=== PATIENT | male | born 1940 | race Caucasian/White ===

== ENCOUNTER → 2016-06-05 | Outpatient (CLI) | payer MEDICARE, OTHER ==
--- NOTE | 2016-06-05 11:39 | XR ---
EXAMINATION TYPE: XR shoulder complete RT DATE OF EXAM: 06/05/2016 11:26 AM CLINICAL HISTORY: Pain since recent fall injury. TECHNIQUE: Three views of the right shoulder are obtained. COMPARISON: None. FINDINGS: There is no acute fracture/dislocation evident in the right shoulder. There is mild to mod erate spurring at glenohumeral joint inferiorly. There is well corticated ossific fragmentation from superior aspect of distal clavicle may be product of remote trauma. The visualized ribs are intact a nd unremarkable. IMPRESSION: There is no acute fracture or dislocation in the right shoulder. And other findings as n oted above
== END | disposition home or self-care (01) ==
LOC: RADXRMAIN 11:02
PROVIDERS: ATTEND Family Medicine
DX: M25.511 Pain in right shoulder (principal)

== ENCOUNTER → 2016-08-02 | Outpatient (CLI) | payer MEDICARE, OTHER ==
--- NOTE | 2016-08-02 13:16 | CT ---
EXAMINATION TYPE: CT abdomen pelvis wo con DATE OF EXAM: 08/02/2016 11:31 AM COMPARISON: Prior CT abdomen pelvis July HISTORY: Pain and urinary retention CT DLP: 1172 mGycm Automated exposure control for dose reduction was used. TECHNIQUE: Helical acquisition of images from the lung bases through the pelvis. FINDINGS: LUNG BASES: No significant abnormality is appreciated. AORTA: No significant abnormality is appreciated. LIVER/GB: The liver shows low attenuation likely due to fatty infiltration. There is elevation of rig ht hemidiaphragm, eventration is suspected. Gallbladder is contracted PANCREAS: No significant abnormality is seen. SPLEEN: No significant abnormality is seen. ADRENALS: No significant abnormality is seen. KIDNEYS: Stable, there is a large exophytic cyst with wall calcification involving the left kidney me asuring approximately 11.1 cm in greatest dimension on the left. No hydronephrosis bilaterally. No ev ident ureteral calcification suspect there is a Hutch diverticulum distally at the level of the inser tion of the right ureter. REPRODUCTIVE ORGANS: The prostate is enlarged and shows associated calcification URINARY BLADDER: Urinary bladder shows a thickened wall likely due to chronic outlet obstruction, co rrelate to exclude cystitis. There is impression from the prostate intermargin of the urinary bladder BOWEL: Difficult to exclude abnormal soft tissue at the rectum. There is some wall thickening.. FREE AIR: No Free Air is visible. ASCITES: None visible. Small umbilical hernia contains fat PELVIC ADENOPATHY: None visualized. RETROPERITONEAL ADENOPATHY: No Retroperitoneal Adenopathy visible. OSSEOUS STRUCTURES: Degenerative disc changes are present within the spine, multilevel laminectomy c hange present in the lower lumbar spine. Posterior osteophytes cause anterior mass effect on the thec al sac within the lumbar spine. There is associated spinal stenosis. Postop changes to the left hip c auses some streak artifact. IMPRESSION: NONCONTRAST EXAM MAY LIMIT SENSITIVITY. FATTY INFILTRATION OF THE LIVER, BORDERLINE SIZE OF THE LIVER . LARGE CYST WITHIN THE LEFT KIDNEY IS NOT SIMPLE SHOWS A SIMILAR SIZE TO PRIOR. FINDINGS COMPATIBLE WITH BLADDER OUTLET OBSTRUCTION DESCRIBED, HUTCH DIVERTICULUM ON THE RIGHT, PROSTATE ENLARGEMENT. CONSIDER EVALUATION OF THE SIGMOID COLON IF THIS HAS NOT BEEN PERFORMED.
== END | disposition home or self-care (01) ==
LOC: RADCTMAIN 11:01
PROVIDERS: ATTEND Family Medicine
DX: N28.1 Cyst of kidney, acquired (principal); K76.0 Fatty (change of) liver, not elsewhere classified
CPT/HCPCS: 74176; 80053; 85025

== ENCOUNTER → 2017-09-12 | Outpatient (CLI) | payer MEDICARE, OTHER ==
--- NOTE | 2017-09-12 13:01 | US ---
EXAMINATION TYPE: US venous doppler duplex LE RT DATE OF EXAM: 09/12/2017 12:49 PM COMPARISON: NONE CLINICAL HISTORY: I82.401 DVT RT LEG. Pt states right leg pain, swelling x 6 days/ no known previous DVT SIDE PERFORMED: Right TECHNIQUE: The lower extremity deep venous system is examined utilizing real time linear array sonog parisa with graded compression, doppler sonography and color-flow sonography. VESSELS IMAGED: External Iliac Vein (EIV) Common Femoral Vein Deep Femoral Vein Greater Saphenous Vein * Femoral Vein Popliteal Vein Small Saphenous Vein * Proximal Calf Veins (* superficial vessels) Grayscale, color doppler, spectral doppler imaging performed of the deep veins of the right lower ext remity. There is normal flow, compressibility, vascular waveforms involving common femoral and super ficial femoral veins. Popliteal vein shows absent color flow with noncompressibility there is expansi on with hyperechoic material noted on grayscale images. Right Leg: Positive for DVT within right popliteal vein extending into right calf veins Results called to Dr Montes at time of exam IMPRESSION: Acute occlusive DVT begins in the proximal popliteal vein extending distally into right calf veins in the right lower extremity.
== END | disposition home or self-care (01) ==
LOC: RADUSWWP 12:24
PROVIDERS: ATTEND Family Medicine
DX: I82.431 Acute embolism and thrombosis of right popliteal vein (principal); I82.4Z1 Acute embolism and thrombosis of unspecified deep veins of right distal lower extremity

== ENCOUNTER 2017-10-29 17:27 | Emergency (ER) | payer MEDICARE, OTHER ==
[2017-10-29] MEDS ORDERED: SODIUM CHLORIDE 0.9% 1,000 ML IV STA (17:43)
[2017-10-29] MEDS ORDERED: SODIUM CHLORIDE 0.9% 500 ML IV STA ×2 (17:43→19:44)
[2017-10-29 18:15] LABS: Basophils % (A) 1 %; Eosinophils # (A) 0.1 k/uL (0-0.7); Eosinophils % (A) 2 %; HCT 46.7 % (39.0-53.0); HGB 15.3 gm/dL (13.0-17.5); Lymphocytes # (A) 1.5 k/uL (1.0-4.8); Lymphocytes % (A) 24 %; MCH 30.6 pg (25.0-35.0); MCHC 32.6 g/dL (31.0-37.0); MCV 93.6 fL (80.0-100.0); Mean Platelet Volume 6.9; Monocytes # (A) 0.5 k/uL (0-1.0); Monocytes % (A) 9 %; Neutrophils # (A) 3.7 k/uL (1.3-7.7); Neutrophils % (A) 61 %; Platelet Count 201 k/uL (150-450); RBC 4.99 m/uL (4.30-5.90); RDW 13.5 % (11.5-15.5)
[2017-10-29 18:20] LABS: ALT 41 U/L (21-72); AST 42 U/L (17-59); Albumin 3.9 g/dL (3.5-5.0); Alkaline Phosphatase 52 U/L (38-126); Anion Gap 13 mmol/L; Blood Urea Nitrogen 16 mg/dL (9-20); Calcium 8.8 mg/dL (8.4-10.2); Carbon Dioxide 19 mmol/L (22-30); Chloride 109 mmol/L (98-107); Glucose 108 mg/dL (74-99); Magnesium 2.1 mg/dL (1.6-2.3); Phosphorus 3.5 mg/dL (2.5-4.5); Potassium 4.3 mmol/L (3.5-5.1); Sodium 141 mmol/L (137-145); Total Bilirubin 0.7 mg/dL (0.2-1.3); Total Protein 6.5 g/dL (6.3-8.2)
[2017-10-29 18:23] LABS: INR 1.1 (<1.2); Partial Thromboplastin Time 24.6 sec (22.0-30.0); Prothrombin Time 10.6 sec (9.0-12.0)
--- NOTE | 2017-10-29 18:26 | ED ---
General Adult HPI - General Chief complaint: Weakness Stated complaint: Weakness Time Seen by Provider: 10/29/17 17:30 Source: EMS, RN notes reviewed, old records reviewed Mode of arrival: EMS Limitations: no limitations - History of Present Illness Initial comments: This is a 77-year-old male the ER for various or weakness. Patient does admit to drinking today doing some significant physical activity. He was sitting in his chair trying to get up he was very weak in the legs. Denies any chest pain or shortness or abdominal pain no back pain no injuries. Patient states at this time he feels much improved symptomatically and is able to ambulate - Related Data Home Medications Medication Instructions Recorded Confirmed Atorvastatin [Lipitor] 20 mg PO HS 10/29/17 10/29/17 Lisinopril [Zestril] 2.5 mg PO DAILY 10/29/17 10/29/17 Multivitamins, Thera [Multivitamin 1 tab PO DAILY 10/29/17 10/29/17 (formulary)] metFORMIN HCL [Glucophage] 1,700 mg PO DAILY 10/29/17 10/29/17 Allergies Allergy/AdvReac Type Severity Reaction Status Date / Time No Known Allergies Allergy Verified 10/29/17 17:56 Review of Systems ROS Statement: Those systems with pertinent positive or pertinent negative responses have been documented in the HPI. ROS Other: All systems not noted in ROS Statement are negative. Past Medical History Past Medical History: Hyperlipidemia, Hypertension History of Any Multi-Drug Resistant Organisms: None Reported Past Surgical History: Back Surgery, Orthopedic Surgery Past Psychological History: No Psychological Hx Reported Smoking Status: Former smoker Past Alcohol Use History: Daily Past Drug Use History: None Reported General Exam Limitations: no limitations General appearance: alert, in no apparent distress Head exam: Present: atraumatic, normocephalic, normal inspection Eye exam: Present: normal appearance, PERRL, EOMI. Absent: scleral icterus, conjunctival injection, periorbital swelling ENT exam: Present: normal exam, mucous membranes moist Neck exam: Present: normal inspection. Absent: tenderness, meningismus, lymphadenopathy Respiratory exam: Present: normal lung sounds bilaterally. Absent: respiratory distress, wheezes, rales, rhonchi, stridor Cardiovascular Exam: Present: regular rate, normal rhythm, normal heart sounds. Absent: systolic murmur, diastolic murmur, rubs, gallop, clicks GI/Abdominal exam: Present: soft, normal bowel sounds. Absent: distended, tenderness, guarding, rebound, rigid Extremities exam: Present: normal inspection, full ROM, normal capillary refill. Absent: tenderness, pedal edema, joint swelling, calf tenderness Back exam: Present: normal inspection Neurological exam: Present: alert, oriented X3, CN II-XII intact Psychiatric exam: Present: normal affect, normal mood Skin exam: Present: warm, dry, intact, normal color. Absent: rash Course Vital Signs 10/29/17 10/29/17 10/29/17 17:28 17:55 19:21 Temperature 98.2 F Pulse Rate 75 81 79 Respiratory 18 18 19 Rate Blood Pressure 101/61 141/65 128/75 O2 Sat by Pulse 96 98 95 Oximetry 10/29/17 20:03 Temperature 97.8 F Pulse Rate 75 Respiratory 16 Rate Blood Pressure 122/76 O2 Sat by Pulse 100 Oximetry EKG Findings - EKG Comments: EKG Findings:: EKG shows A. fib rate of 71, QRS 70, QTc 480 Medical Decision Making - Medical Decision Making 77 male presenting with weakness, positive alcohol intoxication. Patient can be discharged home - Lab Data Result diagrams: 10/29/17 17:00 10/29/17 17:00 Lab Results 10/29/17 10/29/17 10/29/17 Range/Units 17:00 17:00 17:00 WBC 6.0 (3.8-10.6) k/uL RBC 4.99 (4.30-5.90) m/uL Hgb 15.3 (13.0-17.5) gm/dL Hct 46.7 (39.0-53.0) % MCV 93.6 (80.0-100.0) fL MCH 30.6 (25.0-35.0) pg MCHC 32.6 (31.0-37.0) g/dL RDW 13.5 (11.5-15.5) % Plt Count 201 (150-450) k/uL Neutrophils % 61 % Lymphocytes % 24 % Monocytes % 9 % Eosinophils % 2 % Basophils % 1 % Neutrophils # 3.7 (1.3-7.7) k/uL Lymphocytes # 1.5 (1.0-4.8) k/uL Monocytes # 0.5 (0-1.0) k/uL Eosinophils # 0.1 (0-0.7) k/uL Basophils # 0.0 (0-0.2) k/uL PT (9.0-12.0) sec INR (<1.2) APTT (22.0-30.0) sec Sodium 141 (137-145) mmol/L Potassium 4.3 (3.5-5.1) mmol/L Chloride 109 H (98-107) mmol/L Carbon Dioxide 19 L (22-30) mmol/L Anion Gap 13 mmol/L BUN 16 (9-20) mg/dL Creatinine 0.85 (0.66-1.25) mg/dL Est GFR (CKD-EPI)AfAm >90 (>60 ml/min/1.73 sqM) Est GFR (CKD-EPI)NonAf 85 (>60 ml/min/1.73 sqM) Glucose 108 H (74-99) mg/dL Calcium 8.8 (8.4-10.2) mg/dL Phosphorus 3.5 (2.5-4.5) mg/dL Magnesium 2.1 (1.6-2.3) mg/dL Total Bilirubin 0.7 (0.2-1.3) mg/dL AST 42 (17-59) U/L ALT 41 (21-72) U/L Alkaline Phosphatase 52 (38-126) U/L Total Creatine Kinase 277 H (55-170) U/L CK-MB (CK-2) 3.5 H* (0.0-2.4) ng/mL CK-MB (CK-2) Rel Index 1.3 Troponin I <0.012 (0.000-0.034) ng/mL Total Protein 6.5 (6.3-8.2) g/dL Albumin 3.9 (3.5-5.0) g/dL Urine Color Urine Appearance (Clear) Urine pH (5.0-8.0) Ur Specific [place] (1.001-1.035) Urine Protein (Negative) Urine Glucose (UA) (Negative) Urine Ketones (Negative) Urine Blood (Negative) Urine Nitrite (Negative) Urine Bilirubin (Negative) Urine Urobilinogen (<2.0) mg/dL Ur Leukocyte Esterase (Negative) Urine RBC (0-5) /hpf Urine WBC (0-5) /hpf Ur Squamous Epith Cells (0-4) /hpf Urine Bacteria (None) /hpf Urine Mucus (None) /hpf Serum Alcohol 198 mg/dL 10/29/17 10/29/17 Range/Units 17:00 19:17 WBC (3.8-10.6) k/uL RBC (4.30-5.90) m/uL Hgb (13.0-17.5) gm/dL Hct (39.0-53.0) % MCV (80.0-100.0) fL MCH (25.0-35.0) pg MCHC (31.0-37.0) g/dL RDW (11.5-15.5) % Plt Count (150-450) k/uL Neutrophils % % Lymphocytes % % Monocytes % % Eosinophils % % Basophils % % Neutrophils # (1.3-7.7) k/uL Lymphocytes # (1.0-4.8) k/uL Monocytes # (0-1.0) k/uL Eosinophils # (0-0.7) k/uL Basophils # (0-0.2) k/uL PT 10.6 (9.0-12.0) sec INR 1.1 (<1.2) APTT 24.6 (22.0-30.0) sec Sodium (137-145) mmol/L Potassium (3.5-5.1) mmol/L Chloride (98-107) mmol/L Carbon Dioxide (22-30) mmol/L Anion Gap mmol/L BUN (9-20) mg/dL Creatinine (0.66-1.25) mg/dL Est GFR (CKD-EPI)AfAm (>60 ml/min/1.73 sqM) Est GFR (CKD-EPI)NonAf (>60 ml/min/1.73 sqM) Glucose (74-99) mg/dL Calcium (8.4-10.2) mg/dL Phosphorus (2.5-4.5) mg/dL Magnesium (1.6-2.3) mg/dL Total Bilirubin (0.2-1.3) mg/dL AST (17-59) U/L ALT (21-72) U/L Alkaline Phosphatase (38-126) U/L Total Creatine Kinase (55-170) U/L CK-MB (CK-2) (0.0-2.4) ng/mL CK-MB (CK-2) Rel Index Troponin I (0.000-0.034) ng/mL Total Protein (6.3-8.2) g/dL Albumin (3.5-5.0) g/dL Urine Color Yellow Urine Appearance Clear (Clear) Urine pH 5.0 (5.0-8.0) Ur Specific [place] 1.008 (1.001-1.035) Urine Protein Negative (Negative) Urine Glucose (UA) Negative (Negative) Urine Ketones Negative (Negative) Urine Blood Negative (Negative) Urine Nitrite Negative (Negative) Urine Bilirubin Negative (Negative) Urine Urobilinogen <2.0 (<2.0) mg/dL Ur Leukocyte Esterase Negative (Negative) Urine RBC <1 (0-5) /hpf Urine WBC <1 (0-5) /hpf Ur Squamous Epith Cells <1 (0-4) /hpf Urine Bacteria Rare H (None) /hpf Urine Mucus Rare H (None) /hpf Serum Alcohol mg/dL Disposition Clinical Impression: Dehydration, Weakness, Alcohol intoxication Disposition: HOME SELF-CARE Condition: Good Instructions: Dehydration (ED), Weakness (ED) Is patient prescribed a controlled substance at d/c from ED?: No Referrals: Robert Montes DO [Primary Care Provider] - 1-2 days
[2017-10-29 18:30] LABS: Creatine Kinase 277 U/L (55-170)
[2017-10-29 18:39] LABS: Alcohol 198 mg/dL
[2017-10-29 18:43] LABS: Troponin I <0.012 ng/mL (0.000-0.034)
[2017-10-29 18:47] LABS: Creatine Kinase MB 3.5 ng/mL (0.0-2.4)
--- NOTE | 2017-10-29 18:53 | XR ---
EXAMINATION TYPE: XR chest 2V DATE OF EXAM: 10/29/2017 COMPARISON: NONE HISTORY: Weakness TECHNIQUE: Frontal and lateral views of the chest are obtained. FINDINGS: There is no focal air space opacity, pleural effusion, or pneumothorax seen. Slight right hemidiaphragm elevation is noted. The cardiac silhouette size is within normal limits. The osseous structures are intact. Multilevel moderate degenerative changes of the thoracic spine are noted. The re is diffuse osseous demineralization. IMPRESSION: No focal consolidation to suggest pneumonia. Mild right hemidiaphragm elevation.
[2017-10-29 19:34] LABS: Bacteria,Urine Rare /hpf; Mucus,Urine Rare /hpf; RBC,Urine <1 /hpf (0-5); Squamous Epithelial Cell,Urine <1 /hpf (0-4); WBC,Urine <1 /hpf (0-5)
[2017-10-29 19:44] LABS: Appearance,Urine Clear (Clear); Bilirubin,Urine Negative (Negative); Blood,Urine Negative (Negative); Color,Urine Yellow; Glucose,Urine (UA) Negative (Negative); Ketones,Urine Negative (Negative); Leukocyte Esterase,Urine Negative (Negative); Nitrite,Urine Negative (Negative); Protein,Urine Negative (Negative); Specific Gravity,Urine 1.008 (1.001-1.035); Urobilinogen,Urine <2.0 mg/dL (<2.0)
[2017-10-29] MEDS ORDERED: MAGNESIUM OXIDE 400 MG TAB PO STA (19:44)
[2017-10-29] MEDS ORDERED: POTASSIUM BICARBONATE/CIT AC 20 MEQ TABLET.EFF PO ONE (19:44)
[2017-10-29 20:04] VITALS: BP 122/76; PULSE 75; RESP 16
[2017-10-29 20:06] VITALS: TEMP 97.8
== END 2017-10-29 20:03 | disposition home or self-care (01) ==
LOC: EC 17:27
DX: E86.0 Dehydration (principal); F10.120 Alcohol abuse with intoxication, uncomplicated; R53.1 Weakness; E78.5 Hyperlipidemia, unspecified; I10 Essential (primary) hypertension; Z87.891 Personal history of nicotine dependence; Z79.84 Long term (current) use of oral hypoglycemic drugs; Z79.899 Other long term (current) drug therapy; Y90.6 Blood alcohol level of 120-199 mg/100 ml
CPT/HCPCS: 36415; 71046; 80053; 80320; 81003; 82550; 82553; 83735; 84100; 84484; 85025; 85610; 85730; 87086; 93005; 99285

== ENCOUNTER 2017-12-19 10:28 | Emergency (ER) | payer MEDICARE, OTHER ==
[2017-12-19] MEDS ORDERED: ALPRAZolam 0.5 MG TAB PO STA ×2 (10:51→23:46)
--- NOTE | 2017-12-19 10:55 | ED ---
Psych HPI - General Chief Complaint: Psychiatric Symptoms Stated Complaint: Mental health Time Seen by Provider: 12/19/17 10:44 Source: patient, RN notes reviewed Mode of arrival: ambulatory Limitations: no limitations - History of Present Illness Initial Comments: 77-year-old male presents emergency Department chief complaint of depression, anxiety. Patient states that he has ongoing depression and anxiety. Patient states has been worsening secondary to impending separation of his . He states that they've been trying to work things out but he states that every morning he wakes up and feels more of a impending doom type feeling. He states that this is been mounting up and states that he sometimes feels suicidal. He states that he's had thoughts of shooting himself or taking pills. He states that he does not want to but is just worried if symptoms keep worsening that he will. Patient states that he is taking antidepressants prescribed by his PCP 1 week ago. Patient denies any homicidal ideation denies any drug or alcohol abuse - Related Data Home Medications Medication Instructions Recorded Confirmed Atorvastatin [Lipitor] 20 mg PO HS 10/29/17 12/19/17 Lisinopril [Zestril] 2.5 mg PO DAILY 10/29/17 12/19/17 Multivitamins, Thera [Multivitamin 1 tab PO DAILY 10/29/17 12/19/17 (formulary)] metFORMIN HCL [Glucophage] 1,700 mg PO DAILY 10/29/17 12/19/17 ALPRAZolam [Xanax] 0.5 mg PO DAILY PRN 12/19/17 12/19/17 Rivaroxaban [Xarelto] 20 mg PO DAILY 12/19/17 12/19/17 Sertraline [Zoloft] 100 mg PO DAILY 12/19/17 12/19/17 Allergies Allergy/AdvReac Type Severity Reaction Status Date / Time No Known Allergies Allergy Verified 12/19/17 11:03 Review of Systems ROS Statement: Those systems with pertinent positive or pertinent negative responses have been documented in the HPI. ROS Other: All systems not noted in ROS Statement are negative. Past Medical History Past Medical History: Deep Vein Thrombosis (DVT), Hyperlipidemia, Hypertension History of Any Multi-Drug Resistant Organisms: None Reported Past Surgical History: Back Surgery, Orthopedic Surgery Past Psychological History: No Psychological Hx Reported Smoking Status: Former smoker Past Alcohol Use History: Abuse, Daily Past Drug Use History: None Reported General Exam Limitations: no limitations General appearance: alert, in no apparent distress, anxious Head exam: Present: atraumatic, normocephalic, normal inspection Eye exam: Present: normal appearance, PERRL, EOMI. Absent: scleral icterus, conjunctival injection, periorbital swelling ENT exam: Present: normal exam, normal oropharynx, mucous membranes moist Neck exam: Present: normal inspection, full ROM. Absent: tenderness, meningismus, lymphadenopathy Respiratory exam: Present: normal lung sounds bilaterally. Absent: respiratory distress, wheezes, rales, rhonchi, stridor Cardiovascular Exam: Present: regular rate, normal rhythm, normal heart sounds. Absent: systolic murmur, diastolic murmur, rubs, gallop, clicks Neurological exam: Present: alert, oriented X3, CN II-XII intact Psychiatric exam: Present: anxious Skin exam: Present: warm, dry, intact, normal color. Absent: rash Course Vital Signs 12/19/17 12/19/17 10:42 17:50 Temperature 97.9 F 98.0 F Pulse Rate 89 77 Respiratory 18 18 Rate Blood Pressure 141/91 137/79 O2 Sat by Pulse 98 98 Oximetry Medical Decision Making - Lab Data Result diagrams: 12/19/17 11:42 12/19/17 11:42 Lab Results 12/19/17 12/19/17 12/19/17 Range/Units 11:42 11:42 11:42 WBC 5.4 (3.8-10.6) k/uL RBC 5.45 (4.30-5.90) m/uL Hgb 17.6 H (13.0-17.5) gm/dL Hct 52.7 (39.0-53.0) % MCV 96.7 (80.0-100.0) fL MCH 32.2 (25.0-35.0) pg MCHC 33.3 (31.0-37.0) g/dL RDW 13.1 (11.5-15.5) % Plt Count 172 (150-450) k/uL Neutrophils % 69 % Lymphocytes % 21 % Monocytes % 7 % Eosinophils % 2 % Basophils % 0 % Neutrophils # 3.7 (1.3-7.7) k/uL Lymphocytes # 1.1 (1.0-4.8) k/uL Monocytes # 0.4 (0-1.0) k/uL Eosinophils # 0.1 (0-0.7) k/uL Basophils # 0.0 (0-0.2) k/uL Sodium 142 (137-145) mmol/L Potassium 4.2 (3.5-5.1) mmol/L Chloride 107 (98-107) mmol/L Carbon Dioxide 24 (22-30) mmol/L Anion Gap 11 mmol/L BUN 15 (9-20) mg/dL Creatinine 0.72 (0.66-1.25) mg/dL Est GFR (CKD-EPI)AfAm >90 (>60 ml/min/1.73 sqM) Est GFR (CKD-EPI)NonAf >90 (>60 ml/min/1.73 sqM) Glucose 118 H (74-99) mg/dL Calcium 9.8 (8.4-10.2) mg/dL Total Bilirubin 1.2 (0.2-1.3) mg/dL AST 47 (17-59) U/L ALT 51 (21-72) U/L Alkaline Phosphatase 69 (38-126) U/L Total Protein 7.5 (6.3-8.2) g/dL Albumin 4.3 (3.5-5.0) g/dL Urine Color Yellow Urine Appearance Cloudy (Clear) Urine pH 5.5 (5.0-8.0) Ur Specific [place] 1.013 (1.001-1.035) Urine Protein Negative (Negative) Urine Glucose (UA) Negative (Negative) Urine Ketones Negative (Negative) Urine Blood Negative (Negative) Urine Nitrite Negative (Negative) Urine Bilirubin Negative (Negative) Urine Urobilinogen <2.0 (<2.0) mg/dL Ur Leukocyte Esterase Negative (Negative) Ur Squamous Epith Cells 1 (0-4) /hpf Urine Mucus Occasional H (None) /hpf Urine Opiates Screen Detected H (NotDetected) Ur Oxycodone Screen Not Detected (NotDetected) Urine Methadone Screen Not Detected (NotDetected) Ur Propoxyphene Screen Not Detected (NotDetected) Ur Barbiturates Screen Not Detected (NotDetected) U Tricyclic Antidepress Not Detected (NotDetected) Ur Phencyclidine Scrn Not Detected (NotDetected) Ur Amphetamines Screen Not Detected (NotDetected) U Methamphetamines Scrn Not Detected (NotDetected) U Benzodiazepines Scrn Detected H (NotDetected) Urine Cocaine Screen Not Detected (NotDetected) U Marijuana (THC) Screen Not Detected (NotDetected) Disposition Clinical Impression: Depression, Suicidal ideation Disposition: TRANSFER TO PSYCH HOSP/UNIT Condition: Stable Referrals: Robert Montes DO [Primary Care Provider] - 1-2 days Time of Disposition: 16:00
[2017-12-19 12:23] LABS: Basophils % (A) 0 %; Eosinophils # (A) 0.1 k/uL (0-0.7); Eosinophils % (A) 2 %; HCT 52.7 % (39.0-53.0); HGB 17.6 gm/dL (13.0-17.5); Lymphocytes # (A) 1.1 k/uL (1.0-4.8); Lymphocytes % (A) 21 %; MCH 32.2 pg (25.0-35.0); MCHC 33.3 g/dL (31.0-37.0); MCV 96.7 fL (80.0-100.0); Mean Platelet Volume 6.8; Monocytes # (A) 0.4 k/uL (0-1.0); Monocytes % (A) 7 %; Neutrophils # (A) 3.7 k/uL (1.3-7.7); Neutrophils % (A) 69 %; Platelet Count 172 k/uL (150-450); RBC 5.45 m/uL (4.30-5.90); RDW 13.1 % (11.5-15.5); WBC 5.4 k/uL (3.8-10.6)
[2017-12-19 12:35] LABS: Appearance,Urine Cloudy (Clear); Bilirubin,Urine Negative (Negative); Blood,Urine Negative (Negative); Color,Urine Yellow; Glucose,Urine (UA) Negative (Negative); Ketones,Urine Negative (Negative); Leukocyte Esterase,Urine Negative (Negative); Mucus,Urine Occasional /hpf; Nitrite,Urine Negative (Negative); PH, Urine 5.5 (5.0-8.0); Protein,Urine Negative (Negative); Specific Gravity,Urine 1.013 (1.001-1.035); Squamous Epithelial Cell,Urine 1 /hpf (0-4); Urobilinogen,Urine <2.0 mg/dL (<2.0)
[2017-12-19 12:37] LABS: Amphetamine Screen,Urine Not Detected (NotDetected); Barbiturate Screen,Urine Not Detected (NotDetected); Benzodiazepines Screen,Urine Detected (NotDetected); Cocaine Screen,Urine Not Detected (NotDetected); Methadone Screen, Urine Not Detected (NotDetected); Opiate Screen,Urine Detected (NotDetected); Oxycodone Screen, Urine Not Detected (NotDetected); Phencyclidine Screen,Urine Not Detected (NotDetected); Tricyclic Antidepressant,Urine Not Detected (NotDetected); Urn Cannabinoid Scrn Not Detected (NotDetected)
[2017-12-19 12:44] LABS: ALT 51 U/L (21-72); AST 47 U/L (17-59); Albumin 4.3 g/dL (3.5-5.0); Alkaline Phosphatase 69 U/L (38-126); Anion Gap 11 mmol/L; Blood Urea Nitrogen 15 mg/dL (9-20); Calcium 9.8 mg/dL (8.4-10.2); Carbon Dioxide 24 mmol/L (22-30); Chloride 107 mmol/L (98-107); Glucose 118 mg/dL (74-99); Potassium 4.2 mmol/L (3.5-5.1); Sodium 142 mmol/L (137-145); Total Bilirubin 1.2 mg/dL (0.2-1.3); Total Protein 7.5 g/dL (6.3-8.2)
[2017-12-19 21:39] VITALS: BP 113/64; PULSE 64; RESP 16; TEMP 97.2
== END 2017-12-20 00:45 ==
LOC: EC 10:28
DX: F32.9 Major depressive disorder, single episode, unspecified (principal); R45.851 Suicidal ideations; F41.9 Anxiety disorder, unspecified; E78.5 Hyperlipidemia, unspecified; I10 Essential (primary) hypertension; Z86.718 Personal history of other venous thrombosis and embolism; Z87.891 Personal history of nicotine dependence; Z79.84 Long term (current) use of oral hypoglycemic drugs; Z79.01 Long term (current) use of anticoagulants; Z79.899 Other long term (current) drug therapy
CPT/HCPCS: 36415; 80053; 80306; 81001; 85025; 99285

== ENCOUNTER 2018-02-19 08:38 | Day surgery (SDC) | payer MEDICARE, OTHER ==
[2018-02-14 17:37] VITALS: BMI 28.7
[~2018-02-19 08:38] MED LIST: LACTATED RINGERS 1,000 ML IV SCH
[2018-02-19 09:02] VITALS: TEMP 97.8
[2018-02-19 09:15] LABS: Glucose,Whole Blood 114 mg/dL (75-99)
[2018-02-19] MEDS ORDERED: PROPOFOL 10 MG/ML 20 ML VIAL IV ONE (09:28)
--- NOTE | 2018-02-19 09:42 | P.GSHP ---
History of Present Illness H&P Date: 02/19/18 Chief Complaint: Right side dull pain, sigmoid colon and rectum thickening This is a 77-year-old male is a complete right-sided abdominal pain. Patient had a CAT scan performed which showed thickening of the sigmoid colon and rectum consistent with possible colitis. Resents today for colonoscopy. Past Medical History Past Medical History: Diabetes Mellitus, Deep Vein Thrombosis (DVT), Hyperlipidemia, Hypertension Additional Past Medical History / Comment(s): DVT 2017, right sided abd. pain History of Any Multi-Drug Resistant Organisms: None Reported Past Surgical History: Back Surgery, Joint Replacement, Orthopedic Surgery Additional Past Surgical History / Comment(s): back surg. x 2, left hip replaced , ruptured achilles tendon repair Past Anesthesia/Blood Transfusion Reactions: No Reported Reaction Smoking Status: Former smoker - Past Family History Mother Family Medical History: No Reported History Medications and Allergies Home Medications Medication Instructions Recorded Confirmed Type Atorvastatin [Lipitor] 20 mg PO HS 10/29/17 02/19/18 History Lisinopril [Zestril] 2.5 mg PO DAILY 10/29/17 02/19/18 History Multivitamins, Thera [Multivitamin 1 tab PO DAILY 10/29/17 02/19/18 History (formulary)] metFORMIN HCL [Glucophage] 850 mg PO DAILY 10/29/17 02/19/18 History ALPRAZolam [Xanax] 0.5 mg PO DAILY PRN 12/19/17 02/19/18 History Rivaroxaban [Xarelto] 20 mg PO DAILY 12/19/17 02/19/18 History Sertraline [Zoloft] 100 mg PO DAILY 12/19/17 02/19/18 History ARIPiprazole [Abilify] 10 mg PO DAILY 02/14/18 02/19/18 History Cholecalciferol [Vitamin D3] 1,000 unit PO DAILY 02/14/18 02/19/18 History Folic Acid 0.4 mg PO DAILY 02/14/18 02/19/18 History Furosemide [Lasix] 20 mg PO DAILY 02/14/18 02/19/18 History Allergies Allergy/AdvReac Type Severity Reaction Status Date / Time No Known Allergies Allergy Verified 02/19/18 08:52 Surgical - Exam Vital Signs Temp Pulse Resp BP Pulse Ox 97.8 F 81 20 139/77 97 02/19/18 09:01 02/19/18 09:01 02/19/18 09:01 02/19/18 09:01 02/19/18 09:01 - General well developed, no distress - Eyes PERRL - ENT normal pinna - Neck no masses - Respiratory normal expansion - Cardiovascular Rhythm: regular - Abdomen Abdomen: soft, non tender Results - Labs Abnormal Lab Results - Last 24 Hours (Table) 02/19/18 Range/Units 09:13 POC Glucose (mg/dL) 114 H (75-99) mg/dL Assessment and Plan Assessment: Abdominal pain Possible colitis We'll perform colonoscopy.
--- NOTE | 2018-02-19 09:53 | P.OP ---
Date of Procedure: 02/19/18 Preoperative Diagnosis: Colitis Postoperative Diagnosis: Normal colon Procedure(s) Performed: Colonoscopy Anesthesia: MAC Surgeon: Jhony Ellis Pathology: none sent Condition: stable Disposition: PACU Description of Procedure: PROCEDURE: The patient was placed on the endoscopy table in the lateral position. Digital rectal examination was performed which revealed no abnormalities. The prostate was symmetrical without nodules. Flexible colonoscope was then placed in the patient's anus and passed throughout the entire colon. The ileocecal valve was visualized. The cecum, ascending, transverse, descending and sigmoid colon were normal. The rectum was normal as well. There were no masses, polyps or diverticula noted in the entire colon. SUMMARY OF FINDINGS: Normal colonoscopy.
[2018-02-19 10:11] VITALS: BP 136/82; PULSE 80; RESP 18
== END 2018-02-19 10:33 | disposition home or self-care (01) ==
LOC: ORWHC2ENDO 08:38
PROVIDERS: ATTEND Surgery
DX: R10.9 Unspecified abdominal pain (principal); K63.89 Other specified diseases of intestine; I10 Essential (primary) hypertension; E78.5 Hyperlipidemia, unspecified; E11.9 Type 2 diabetes mellitus without complications; Z79.84 Long term (current) use of oral hypoglycemic drugs; Z79.899 Other long term (current) drug therapy; Z86.718 Personal history of other venous thrombosis and embolism; Z87.891 Personal history of nicotine dependence; Z79.01 Long term (current) use of anticoagulants
CPT/HCPCS: 45378; J2704

== ENCOUNTER → 2018-03-11 | Outpatient (CLI) | payer MEDICARE, OTHER ==
[2018-03-11 08:37] LABS: Blood Urea Nitrogen 18 mg/dL (9-20)
--- NOTE | 2018-03-11 15:20 | CT ---
EXAMINATION TYPE: CT abdomen pelvis wo/w con DATE OF EXAM: 03/11/2018 COMPARISON: 08/02/2016 INDICATION: Right sided mid pain with hematuria DLP: 2989 mGycm, Automated exposure control for dose reduction was used. CONTRAST: 100 mL of Isovue 300. Study performed with Oral Contrast TECHNIQUE: Axial images were obtained from above the diaphragm to the pubic rami in the axial plane a t 5 mm thick sections. Reconstructed images are reviewed on the computer in the coronal plane. FINDINGS: Limited CT sections are obtained the lung bases. The lung bases are clear. Moderately advanced dylan nary artery calcification is within the [id number]. Small hiatal hernia is present. CT ABDOMEN: Liver: Normal Spleen: Normal Pancreas: Normal Adrenal glands: The adrenal glands are normal. Gallbladder: Normal Kidneys: No masses are evident. No hydronephrosis is present. There is a 10.4 cm cyst along the ant erior inferior pole left kidney measuring 13 Hounsfield units. There is a 0.3 cm calcification poste rior upper pole right kidney. This is nonobstructing. No hydroureter is evident. Aorta: Vascular calcification is within the aorta. Inferior vena cava: Normal. CT PELVIS: Loops of bowel within the abdomen and pelvis are normal. There are loops of bowel which are incom pletely distended or lack oral contrast limiting their evaluation. Appendix: Not visualized. No suspicious tubular structures evident. Urinary bladder: Urinary bladder diverticulum is likely present in the posterior superior right hemip summer. This contains ar 0.4 cm calcification. Genitourinary structures: Prostate is prominent. Osseous structures: No suspicious lytic or sclerotic lesions. IMPRESSIONS: 1. Urinary bladder diverticulum which may contain a calcification. 2. Nonobstructing superior pole right renal stone. No hydronephrosis or hydroureter is present. 3. Large inferior pole left renal cyst.
== END | disposition home or self-care (01) ==
LOC: RADCTMAIN 07:59
PROVIDERS: ATTEND Family Medicine
DX: N20.0 Calculus of kidney (principal); N32.3 Diverticulum of bladder; N28.1 Cyst of kidney, acquired
CPT/HCPCS: 82565; 84520; 74178; 36415; Q9967

== ENCOUNTER → 2019-09-18 | Outpatient (CLI) | payer MEDICARE ==
[2019-09-18 12:10] LABS: African American GFR (CKD) >90 (>60 ml/min/1.73 sqM); Blood Urea Nitrogen 18 mg/dL (9-20); Non-African American GFR(CKD) >90 (>60 ml/min/1.73 sqM)
--- NOTE | 2019-09-18 14:47 | CT ---
EXAMINATION TYPE: CT abdomen wo/w con DATE OF EXAM: 09/18/2019 COMPARISON: 03/11/2018 HISTORY: Kidney mass CT DLP: 2384.8 mGycm CONTRAST: CT scan of the abdomen is performed with Oral Contrast and without and with IV Contrast, patient inje cted with 100 mL of Isovue 300. FINDINGS: LUNG BASES-: No visible nodule. No infiltrate. Small hiatal hernia noted. LIVER/GB: No calcified gallstones. No space occupying hepatic lesion. Biliary tree is of normal ca liber. PANCREAS: No inflammation. No distinct mass. SPLEEN: No splenic enlargement. No lesion seen. ADRENALS: No nodule. No thickening. KIDNEYS/BLADDER: No hydronephrosis. No nephrolithiasis. Large exophytic cyst arising from the lower pole of the left kidney measuring 10.7 x 11.2 cm. Mild mural calcification is noted. No solid renal lesions identified at this time. Extrarenal pelvis right kidney. Urinary bladder grossly unremarkable . BOWEL: Normal bowel caliber. No inflammation. LYMPH NODES: No greater than 1cm abdominal or pelvic lymph nodes are appreciated. AORTA: No significant abnormality. OSSEOUS STRUCTURES: No significant abnormality is seen. OTHER: No significant additional abnormality is seen. IMPRESSION: 1. Large exophytic cyst arising from the lower pole of the left kidney measuring 10.7 x 11.2 cm. Mild mural calcification is noted. No solid renal lesions identified at this time.
== END | disposition home or self-care (01) ==
LOC: RADCTMAIN 11:24
PROVIDERS: ATTEND Family Medicine
DX: N28.1 Cyst of kidney, acquired (principal)
CPT/HCPCS: 82565; 84520; 74170; 36415; Q9967

== ENCOUNTER 2019-10-06 13:21 | Emergency (ER) | payer MEDICARE ==
[2019-10-06 13:34] VITALS: RESP 16
[2019-10-06] MEDS ORDERED: ONDANSETRON 4 MG/2 ML VIAL IVP STA (14:16)
[2019-10-06] MEDS ORDERED: MORPHINE SULFATE 4 MG/ML SYRINGE IV STA (14:16)
[2019-10-06] MEDS ORDERED: SODIUM CHLORIDE 0.9% 500 ML 500 ML IV STA (14:16)
--- NOTE | 2019-10-06 14:32 | ED ---
General Adult HPI - General Chief complaint: Abdominal Pain Stated complaint: Abd Pain Time Seen by Provider: 10/06/19 14:00 Source: patient, RN notes reviewed, old records reviewed Mode of arrival: wheelchair Limitations: no limitations - History of Present Illness Initial comments: 79-year-old male patient passed history of type 2 diabetes, prior DVT on xaralto presented to ED for chief complaint of right lower quadrant pain. Patient reports that pain began suddenly approximate 4 hours ago. Describes as a sharp pain. States it radiates to his right flank. Reports nausea without emesis. Denies any other complaints. Systemic: Pt denies fatigue, fever/chills, rash. Pt denies weakness, night sweats, weight loss. Neuro: Pt denies headache, visual disturbances, syncope or pre-syncope. HEENT: Pt denies ocular discharge or irritation, otalgia, rhinorrhea, pharyngitis or notable lymphadenopathy. Cardiopulmonary: Pt denies chest pain, SOB, heart palpitations, dyspnea on exertion. Abdominal/GI: Pt denies v/d. : Pt denies dysuria, burning w/ urination, frequency/urgency. Denies new onset urinary or bowel incontinence. MSK: Pt denies myalgia, loss of strength or function in extremities. Neuro: Pt denies new onset weakness, paresthesias. - Related Data Home Medications Medication Instructions Recorded Confirmed Atorvastatin [Lipitor] 20 mg PO Q48H 10/29/17 10/06/19 Lisinopril [Zestril] 2.5 mg PO DAILY 10/29/17 10/06/19 metFORMIN HCL [Glucophage] 850 mg PO DAILY 10/29/17 10/06/19 Cholecalciferol [Vitamin D3] 1,000 unit PO DAILY 02/14/18 10/06/19 Folic Acid 0.4 mg PO DAILY 02/14/18 10/06/19 Aspirin EC [Ecotrin Low Dose] 81 mg PO DAILY 10/06/19 10/06/19 Multivit-Min/FA/Lycopen/Lutein 1 tab PO DAILY 10/06/19 10/06/19 [Centrum Silver Men Tablet] Tamsulosin HCl [Flomax] 0.4 mg PO DAILY 10/06/19 10/06/19 Previous Rx's Medication Instructions Recorded Tamsulosin [Flomax] 0.4 mg PO DAILY #10 cap 10/06/19 Allergies Allergy/AdvReac Type Severity Reaction Status Date / Time No Known Allergies Allergy Verified 10/06/19 14:47 Review of Systems ROS Statement: Those systems with pertinent positive or pertinent negative responses have been documented in the HPI. ROS Other: All systems not noted in ROS Statement are negative. Past Medical History Past Medical History: Diabetes Mellitus, Deep Vein Thrombosis (DVT), Hyperlipidemia, Hypertension Additional Past Medical History / Comment(s): DVT 2017, right sided abd. pain History of Any Multi-Drug Resistant Organisms: None Reported Past Surgical History: Back Surgery, Joint Replacement, Orthopedic Surgery Additional Past Surgical History / Comment(s): back surg. x 2, left hip replaced, ruptured achilles tendon repair Past Anesthesia/Blood Transfusion Reactions: No Reported Reaction Past Psychological History: No Psychological Hx Reported Smoking Status: Former smoker Past Alcohol Use History: None Reported Past Drug Use History: None Reported - Past Family History Mother Family Medical History: No Reported History General Exam - General Exam Comments Initial Comments: Constitutional: NAD, AOX3, Pt has pleasant affect. HEENT: NC/AT, trachea midline, neck supple, no lymphadenopathy. External ears appear normal, without discharge. Mucous membranes moist. EOM intact. There is no scleral icterus. No pallor noted. Cardiopulmonary: RRR, no murmurs, rubs or gallops, no JVD noted. Lungs CTAB in anterior and posterior smith. No peripheral edema. Abdominal exam: Abdomen soft and non-distended. Abdomen mildly tender to palpation in right lower quadrant. No guarding or rigidity no ecchymoses. No hepatosplenomegaly. Neuro: CN II-XII grossly intact. No nuchal rigidity. No raccon eyes, no lubin sign. MSK: Full active ROM in upper and lower extremities. Limitations: no limitations Course Vital Signs 10/06/19 10/06/19 13:32 16:33 Temperature 98.2 F 98.6 F Pulse Rate 69 71 Respiratory 16 16 Rate Blood Pressure 184/93 156/92 O2 Sat by Pulse 98 98 Oximetry Medical Decision Making - Medical Decision Making 79-year-old male patient passed history of type 2 diabetes, prior DVT on xaralto presented to ED for chief complaint of right lower quadrant pain. Patient reports that pain began suddenly approximate 4 hours ago. Describes as a sharp pain. States it radiates to his right flank. Reports nausea without emesis. Denies any other complaints. Patient vital signs are stable, afebrile. Physic al exam displayed mild right lower quadrant tenderness. Laboratory investigations did display a mildly elevated lactic acid. Patient was administered a fluid bolus. UA displayed hematuria. CT abdomen and pelvis with contrast displayed suspected right side distal. She'll calculi mild hydroureter. 5.1 cm posterior bilateral diverticulum paining and 9 mm tympanic calculus. 4 mm calculus in the bladder. Prostate no megaly. Large cyst anterior left kidney. Hepatic states illnesses coronary artery disease with patient hernia possible moderate to severe atherosclerotic stenosis of the raymundo c axis and SMA origins. Patient was previously aware of large cyst which is being followed by PCP. Patient's symptoms are well controlled. Patient was discharged will follow up with urology tomorrow for which she has previously established. Will follow up with primary care provider tomorrow as well and will be given cascular surgery referral. Case discussed with Dr. Treadwell. - Lab Data Result diagrams: 10/06/19 14:26 10/06/19 14:26 Lab Results 10/06/19 10/06/19 10/06/19 Range/Units 14:26 14:26 14:26 WBC 5.9 (3.8-10.6) k/uL RBC 5.18 (4.30-5.90) m/uL Hgb 17.2 (13.0-17.5) gm/dL Hct 50.4 (39.0-53.0) % MCV 97.3 (80.0-100.0) fL MCH 33.3 (25.0-35.0) pg MCHC 34.2 (31.0-37.0) g/dL RDW 12.3 (11.5-15.5) % Plt Count 172 (150-450) k/uL Neutrophils % 70 % Lymphocytes % 19 % Monocytes % 7 % Eosinophils % 1 % Basophils % 1 % Neutrophils # 4.1 (1.3-7.7) k/uL Lymphocytes # 1.1 (1.0-4.8) k/uL Monocytes # 0.4 (0-1.0) k/uL Eosinophils # 0.1 (0-0.7) k/uL Basophils # 0.0 (0-0.2) k/uL Sodium 139 (137-145) mmol/L Potassium 4.1 (3.5-5.1) mmol/L Chloride 108 H (98-107) mmol/L Carbon Dioxide 19 L (22-30) mmol/L Anion Gap 12 mmol/L BUN 18 (9-20) mg/dL Creatinine 0.83 (0.66-1.25) mg/dL Est GFR (CKD-EPI)AfAm >90 (>60 ml/min/1.73 sqM) Est GFR (CKD-EPI)NonAf 85 (>60 ml/min/1.73 sqM) Glucose 135 H (74-99) mg/dL Plasma Lactic Acid Naveen (0.7-2.0) mmol/L Calcium 10.0 (8.4-10.2) mg/dL Total Bilirubin 1.3 (0.2-1.3) mg/dL AST 35 (17-59) U/L ALT 24 (4-49) U/L Alkaline Phosphatase 78 (38-126) U/L Total Protein 7.7 (6.3-8.2) g/dL Albumin 4.5 (3.5-5.0) g/dL Lipase 147 (23-300) U/L Urine Color Yellow Urine Appearance Cloudy (Clear) Urine pH 5.5 (5.0-8.0) Ur Specific [place] 1.022 (1.001-1.035) Urine Protein Trace H (Negative) Urine Glucose (UA) Negative (Negative) Urine Ketones 1+ H (Negative) Urine Blood Large H (Negative) Urine Nitrite Negative (Negative) Urine Bilirubin Negative (Negative) Urine Urobilinogen <2.0 (<2.0) mg/dL Ur Leukocyte Esterase Trace H (Negative) Urine RBC >182 H (0-5) /hpf Urine WBC 7 H (0-5) /hpf Ur Squamous Epith Cells <1 (0-4) /hpf Hyaline Casts 1 (0-2) /lpf Urine Mucus Few H (None) /hpf 10/06/19 Range/Units 14:26 WBC (3.8-10.6) k/uL RBC (4.30-5.90) m/uL Hgb (13.0-17.5) gm/dL Hct (39.0-53.0) % MCV (80.0-100.0) fL MCH (25.0-35.0) pg MCHC (31.0-37.0) g/dL RDW (11.5-15.5) % Plt Count (150-450) k/uL Neutrophils % % Lymphocytes % % Monocytes % % Eosinophils % % Basophils % % Neutrophils # (1.3-7.7) k/uL Lymphocytes # (1.0-4.8) k/uL Monocytes # (0-1.0) k/uL Eosinophils # (0-0.7) k/uL Basophils # (0-0.2) k/uL Sodium (137-145) mmol/L Potassium (3.5-5.1) mmol/L Chloride (98-107) mmol/L Carbon Dioxide (22-30) mmol/L Anion Gap mmol/L BUN (9-20) mg/dL Creatinine (0.66-1.25) mg/dL Est GFR (CKD-EPI)AfAm (>60 ml/min/1.73 sqM) Est GFR (CKD-EPI)NonAf (>60 ml/min/1.73 sqM) Glucose (74-99) mg/dL Plasma Lactic Acid Naveen 3.1 H* (0.7-2.0) mmol/L Calcium (8.4-10.2) mg/dL Total Bilirubin (0.2-1.3) mg/dL AST (17-59) U/L ALT (4-49) U/L Alkaline Phosphatase (38-126) U/L Total Protein (6.3-8.2) g/dL Albumin (3.5-5.0) g/dL Lipase (23-300) U/L Urine Color Urine Appearance (Clear) Urine pH (5.0-8.0) Ur Specific [place] (1.001-1.035) Urine Protein (Negative) Urine Glucose (UA) (Negative) Urine Ketones (Negative) Urine Blood (Negative) Urine Nitrite (Negative) Urine Bilirubin (Negative) Urine Urobilinogen (<2.0) mg/dL Ur Leukocyte Esterase (Negative) Urine RBC (0-5) /hpf Urine WBC (0-5) /hpf Ur Squamous Epith Cells (0-4) /hpf Hyaline Casts (0-2) /lpf Urine Mucus (None) /hpf Disposition Clinical Impression: Ureteral calculi Disposition: HOME SELF-CARE Condition: Stable Instructions (If sedation given, give patient instructions): Kidney Stones (ED) Additional Instructions: Take medication as directed. Follow-up with urologist and PCP tomorrow. Return to ER if condition worsens. Prescriptions: Tamsulosin [Flomax] 0.4 mg PO DAILY #10 cap Is patient prescribed a controlled substance at d/c from ED?: No Referrals: Robert Montes DO [Primary Care Provider] - 1-2 days Kristian Galindo MD [STAFF PHYSICIAN] - 1-2 days
[2019-10-06 15:00] LABS: Basophils % (A) 1 %; Eosinophils # (A) 0.1 k/uL (0-0.7); Eosinophils % (A) 1 %; HCT 50.4 % (39.0-53.0); HGB 17.2 gm/dL (13.0-17.5); Lymphocytes # (A) 1.1 k/uL (1.0-4.8); Lymphocytes % (A) 19 %; MCH 33.3 pg (25.0-35.0); MCHC 34.2 g/dL (31.0-37.0); MCV 97.3 fL (80.0-100.0); Mean Platelet Volume 8.2; Monocytes # (A) 0.4 k/uL (0-1.0); Monocytes % (A) 7 %; Neutrophils # (A) 4.1 k/uL (1.3-7.7); Neutrophils % (A) 70 %; Platelet Count 172 k/uL (150-450); RBC 5.18 m/uL (4.30-5.90); RDW 12.3 % (11.5-15.5); WBC 5.9 k/uL (3.8-10.6)
[2019-10-06 15:12] LABS: ALT 24 U/L (4-49); AST 35 U/L (17-59); African American GFR (CKD) >90 (>60 ml/min/1.73 sqM); Albumin 4.5 g/dL (3.5-5.0); Alkaline Phosphatase 78 U/L (38-126); Anion Gap 12 mmol/L; Appearance,Urine Cloudy (Clear); Bilirubin,Urine Negative (Negative); Blood Urea Nitrogen 18 mg/dL (9-20); Blood,Urine Large (Negative); Carbon Dioxide 19 mmol/L (22-30); Chloride 108 mmol/L (98-107); Color,Urine Yellow; Glucose 135 mg/dL (74-99); Glucose,Urine (UA) Negative (Negative); Hyaline Casts,Urine 1 /lpf (0-2); Ketones,Urine 1+ (Negative); Leukocyte Esterase,Urine Trace (Negative); Mucus,Urine Few /hpf; Nitrite,Urine Negative (Negative); Non-African American GFR(CKD) 85 (>60 ml/min/1.73 sqM); PH, Urine 5.5 (5.0-8.0); Potassium 4.1 mmol/L (3.5-5.1); Protein,Urine Trace (Negative); RBC,Urine >182 /hpf (0-5); Sodium 139 mmol/L (137-145); Specific Gravity,Urine 1.022 (1.001-1.035); Squamous Epithelial Cell,Urine <1 /hpf (0-4); Total Bilirubin 1.3 mg/dL (0.2-1.3); Total Protein 7.7 g/dL (6.3-8.2); Urobilinogen,Urine <2.0 mg/dL (<2.0); WBC,Urine 7 /hpf (0-5)
[2019-10-06] MEDS ORDERED: SODIUM CHLORIDE 0.9% 500 ML 500 ML IV ONE (15:58)
--- NOTE | 2019-10-06 15:58 | CT ---
EXAMINATION TYPE: CT abdomen pelvis w con DATE OF EXAM: 10/06/2019 COMPARISON: 09/18/2019 HISTORY: 79-year-old male RLQ pain, suspected appendicitis TECHNIQUE: Contiguous axial scanning of the abdomen and pelvis following administration of 100 ml Iso deya 300 IV contrast. Delayed images through the kidneys and coronal/sagittal reconstructions perform ed. CT DLP: 1900.9 mGycm Automated exposure control for dose reduction was used. FINDINGS: Heart normal size without pericardial effusion. Three-vessel coronary artery calcifications are prese nt. Small hiatal hernia. Mild dependent atelectasis. No pleural effusion. Low-attenuation of the liver parenchyma; suspect fatty infiltration on this late arterial phase exam. Portal venous system is patent. No biliary ductal dilatation. Gallbladder, adrenal glands, spleen, and pancreas appear within normal limits. Mild right-sided pelvocaliectasis similar to recent prior. Mild ureteral prominence. Unable to exclud e a 6 mm distal right ureteral calculus. There is also a right posterior bladder wall diverticulum measuring 5.1 x 2.9 cm containing a depende nt 9 mm calculus. Additional 4 mm calculus dependent within the main part of the bladder. Prostate gl and enlargement at 6.3 cm wide. Left kidney shows a very large anterior cyst measuring up to 11.6 x 11.1 cm. Possible moderate or severe atherosclerotic narrowing at the celiac axis and SMA origins. No dilated small bowel, free fluid, or free air. No significant stool burden. No pericolonic inflammatory change. Very small caliber normal appendix i s seen. No mesenteric or retroperitoneal lymphadenopathy. Scattered nonenlarged mesenteric lymph nodes are pr esent. Bladder is urine distended. No abnormal fluid collection in the pelvis or pelvic lymphadenopathy seen . Bones: Left hip total arthroplasty. Moderate degenerative change right hip. Degenerative changes with some bridging ankylosis of the SI joints. Moderate to severe spondylotic changes throughout the lumb ar spine. Prior L3-L4 laminectomies. IMPRESSION: 1. MILD RIGHT-SIDED PELVICALIECTASIS AND MILD RIGHT-SIDED HYDROURETER. SUSPECT A 6 MM DISTAL RIGHT UR ETERAL CALCULUS CAUSING A MILD OBSTRUCTIVE UROPATHY. 2. A 5.1 CM RIGHT POSTERIOR BLADDER WALL DIVERTICULUM CONTAINING A 9 MM DEPENDENT CALCULUS. ADDITIONA L 4 MM CALCULUS IN THE MAIN PART OF THE BLADDER. PROSTATOMEGALY AT 6.3 CM WIDE. CORRELATE FOR BPH AND CHRONIC BLADDER OUTLET OBSTRUCTION. 3. LARGE 11.6 CM CYST ANTERIOR LEFT KIDNEY. CORRELATE FOR ANY POTENTIAL SYMPTOMS FROM LARGE SIZE. 4. HEPATIC STEATOSIS, CAD, SMALL HIATAL HERNIA, AND POSSIBLE MODERATE TO SEVERE ATHEROSCLEROTIC STENO SES AT THE CELIAC AXIS AND SMA ORIGINS. CLINICALLY CORRELATE.
[2019-10-06 16:33] VITALS: BP 156/92; PULSE 71; TEMP 98.6
[2019-10-06] MEDS ORDERED: ACET/COD 300 MG/30 MG STARTER PACK 6 TAB BTL PO STA (16:41)
--- NOTE | 2019-10-06 16:49 | ED ---
Medical Decision Making - Lab Data Result diagrams: 10/06/19 14:26 10/06/19 14:26 Lab Results 10/06/19 10/06/19 10/06/19 Range/Units 14:26 14:26 14:26 WBC 5.9 (3.8-10.6) k/uL RBC 5.18 (4.30-5.90) m/uL Hgb 17.2 (13.0-17.5) gm/dL Hct 50.4 (39.0-53.0) % MCV 97.3 (80.0-100.0) fL MCH 33.3 (25.0-35.0) pg MCHC 34.2 (31.0-37.0) g/dL RDW 12.3 (11.5-15.5) % Plt Count 172 (150-450) k/uL Neutrophils % 70 % Lymphocytes % 19 % Monocytes % 7 % Eosinophils % 1 % Basophils % 1 % Neutrophils # 4.1 (1.3-7.7) k/uL Lymphocytes # 1.1 (1.0-4.8) k/uL Monocytes # 0.4 (0-1.0) k/uL Eosinophils # 0.1 (0-0.7) k/uL Basophils # 0.0 (0-0.2) k/uL Sodium 139 (137-145) mmol/L Potassium 4.1 (3.5-5.1) mmol/L Chloride 108 H (98-107) mmol/L Carbon Dioxide 19 L (22-30) mmol/L Anion Gap 12 mmol/L BUN 18 (9-20) mg/dL Creatinine 0.83 (0.66-1.25) mg/dL Est GFR (CKD-EPI)AfAm >90 (>60 ml/min/1.73 sqM) Est GFR (CKD-EPI)NonAf 85 (>60 ml/min/1.73 sqM) Glucose 135 H (74-99) mg/dL Plasma Lactic Acid Naveen (0.7-2.0) mmol/L Calcium 10.0 (8.4-10.2) mg/dL Total Bilirubin 1.3 (0.2-1.3) mg/dL AST 35 (17-59) U/L ALT 24 (4-49) U/L Alkaline Phosphatase 78 (38-126) U/L Total Protein 7.7 (6.3-8.2) g/dL Albumin 4.5 (3.5-5.0) g/dL Lipase 147 (23-300) U/L Urine Color Yellow Urine Appearance Cloudy (Clear) Urine pH 5.5 (5.0-8.0) Ur Specific [place] 1.022 (1.001-1.035) Urine Protein Trace H (Negative) Urine Glucose (UA) Negative (Negative) Urine Ketones 1+ H (Negative) Urine Blood Large H (Negative) Urine Nitrite Negative (Negative) Urine Bilirubin Negative (Negative) Urine Urobilinogen <2.0 (<2.0) mg/dL Ur Leukocyte Esterase Trace H (Negative) Urine RBC >182 H (0-5) /hpf Urine WBC 7 H (0-5) /hpf Ur Squamous Epith Cells <1 (0-4) /hpf Hyaline Casts 1 (0-2) /lpf Urine Mucus Few H (None) /hpf 10/06/19 Range/Units 14:26 WBC (3.8-10.6) k/uL RBC (4.30-5.90) m/uL Hgb (13.0-17.5) gm/dL Hct (39.0-53.0) % MCV (80.0-100.0) fL MCH (25.0-35.0) pg MCHC (31.0-37.0) g/dL RDW (11.5-15.5) % Plt Count (150-450) k/uL Neutrophils % % Lymphocytes % % Monocytes % % Eosinophils % % Basophils % % Neutrophils # (1.3-7.7) k/uL Lymphocytes # (1.0-4.8) k/uL Monocytes # (0-1.0) k/uL Eosinophils # (0-0.7) k/uL Basophils # (0-0.2) k/uL Sodium (137-145) mmol/L Potassium (3.5-5.1) mmol/L Chloride (98-107) mmol/L Carbon Dioxide (22-30) mmol/L Anion Gap mmol/L BUN (9-20) mg/dL Creatinine (0.66-1.25) mg/dL Est GFR (CKD-EPI)AfAm (>60 ml/min/1.73 sqM) Est GFR (CKD-EPI)NonAf (>60 ml/min/1.73 sqM) Glucose (74-99) mg/dL Plasma Lactic Acid Naveen 3.1 H* (0.7-2.0) mmol/L Calcium (8.4-10.2) mg/dL Total Bilirubin (0.2-1.3) mg/dL AST (17-59) U/L ALT (4-49) U/L Alkaline Phosphatase (38-126) U/L Total Protein (6.3-8.2) g/dL Albumin (3.5-5.0) g/dL Lipase (23-300) U/L Urine Color Urine Appearance (Clear) Urine pH (5.0-8.0) Ur Specific [place] (1.001-1.035) Urine Protein (Negative) Urine Glucose (UA) (Negative) Urine Ketones (Negative) Urine Blood (Negative) Urine Nitrite (Negative) Urine Bilirubin (Negative) Urine Urobilinogen (<2.0) mg/dL Ur Leukocyte Esterase (Negative) Urine RBC (0-5) /hpf Urine WBC (0-5) /hpf Ur Squamous Epith Cells (0-4) /hpf Hyaline Casts (0-2) /lpf Urine Mucus (None) /hpf Disposition Clinical Impression: Ureteral calculi Disposition: HOME SELF-CARE Condition: Stable Instructions (If sedation given, give patient instructions): Kidney Stones (ED) Additional Instructions: Take medication as directed. Take flomax once per day. May use tylenol #3 every 8 hours as needed for pain. Follow-up with urologist and PCP tomorrow. Follow up with vascular surgery. Return to ER if condition worsens. Prescriptions: Tamsulosin [Flomax] 0.4 mg PO DAILY #10 cap Is patient prescribed a controlled substance at d/c from ED?: No Referrals: Kristian Galindo MD [STAFF PHYSICIAN] - 1-2 days Robert Montes DO [Primary Care Provider] - 1-2 days Simon Brooks DO [Doctor of Osteopathic Medicine] - 1-2 days
== END 2019-10-06 17:15 | disposition home or self-care (01) ==
LOC: EC 13:21
DX: N20.1 Calculus of ureter (principal); N28.1 Cyst of kidney, acquired; I25.10 Atherosclerotic heart disease of native coronary artery without angina pectoris; K57.90 Diverticulosis of intestine, part unspecified, without perforation or abscess without bleeding; E78.5 Hyperlipidemia, unspecified; E11.9 Type 2 diabetes mellitus without complications; I10 Essential (primary) hypertension; Z79.4 Long term (current) use of insulin; Z79.82 Long term (current) use of aspirin; Z79.899 Other long term (current) drug therapy; Z87.891 Personal history of nicotine dependence; Z86.718 Personal history of other venous thrombosis and embolism; Z96.642 Presence of left artificial hip joint
CPT/HCPCS: 99285; 96374; 96375; 96361 ×2; 36415; 80053; 83605; 83690; 85025; 81001; 74177; J2270; J2405; Q9967

== ENCOUNTER → 2019-10-15 | Outpatient (CLI) | payer MEDICARE | END | disposition home or self-care (01) | LOC: LABPAT 09:22 | PROVIDERS: ATTEND Urology | DX: Z01.818 Encounter for other preprocedural examination (principal); N21.0 Calculus in bladder; R53.83 Other fatigue | CPT/HCPCS: 93005 ==

== ENCOUNTER 2019-10-22 11:17 | Day surgery (SDC) | payer MEDICARE ==
--- NOTE | 2019-10-18 21:37 | P.GSHP ---
History of Present Illness H&P Date: 10/18/19 Chief Complaint: Right lower abdominal pain The patient is a 79-year-old white male with no prior history of urolithiasis. He has recently experienced right lower quadrant abdominal pain. A computed tomography scan of the abdomen and pelvis shows a large left renal cyst, mild right hydronephrosis with a possible 6 mm right distal ureteral calculus, and 2 bladder calculi (4 and 9 mm) within a right bladder wall diverticulum. - Constitutional Constitutional: Denies chills, Denies fever - Gastrointestinal Gastrointestinal: Denies nausea, Denies vomiting - Genitourinary (Female) Genitourinary: Denies hematuria Past Medical History Past Medical History: Diabetes Mellitus, Deep Vein Thrombosis (DVT), Hyperlipidemia, Hypertension Additional Past Medical History / Comment(s): DVT 2017, right sided abd. pain History of Any Multi-Drug Resistant Organisms: None Reported Past Surgical History: Back Surgery, Joint Replacement, Orthopedic Surgery Additional Past Surgical History / Comment(s): back surg. x 2, left hip replaced, ruptured achilles tendon repair Past Anesthesia/Blood Transfusion Reactions: No Reported Reaction Past Psychological History: No Psychological Hx Reported Past Alcohol Use History: None Reported Past Drug Use History: None Reported - Past Family History Mother Family Medical History: No Reported History Medications and Allergies Home Medications Medication Instructions Recorded Confirmed Type Atorvastatin [Lipitor] 20 mg PO Q48H 10/29/17 10/06/19 History Lisinopril [Zestril] 2.5 mg PO DAILY 10/29/17 10/06/19 History metFORMIN HCL [Glucophage] 850 mg PO DAILY 10/29/17 10/06/19 History Cholecalciferol [Vitamin D3] 1,000 unit PO DAILY 02/14/18 10/06/19 History Folic Acid 0.4 mg PO DAILY 02/14/18 10/06/19 History Aspirin EC [Ecotrin Low Dose] 81 mg PO DAILY 10/06/19 10/06/19 History Multivit-Min/FA/Lycopen/Lutein 1 tab PO DAILY 10/06/19 10/06/19 History [Centrum Silver Men Tablet] Tamsulosin HCl [Flomax] 0.4 mg PO DAILY 10/06/19 10/06/19 History Tamsulosin [Flomax] 0.4 mg PO DAILY #10 cap 10/06/19 Rx Allergies Allergy/AdvReac Type Severity Reaction Status Date / Time No Known Allergies Allergy Verified 10/06/19 14:47 Surgical - Exam - General well developed, well nourished, no distress - Neck no masses, trachea midline - Respiratory normal respiratory effort, clear to auscultation - Cardiovascular Rhythm: regular Abnormal Heart Sounds: no systolic murmur, no diastolic murmur, no rub, no S3 Gallop, no S4 Gallop, no click, no other - Abdomen Abdomen: soft, non tender, no guarding, no rigid, no rebound - Genitourinary normal penis with no external lesions, testicles non-tender left: scrotal mass/hydrocele (Small left hydrocele) - Rectum Rectum: normal sphincter tone, no masses, other (Prostate enlarged but smooth) - Psychiatric oriented to time, oriented to person, oriented to place, speech is normal, memory intact Results - Imaging CT scan - abdomen: report reviewed, image reviewed Assessment and Plan (1) Hydronephrosis with renal and ureteral calculous obstruction Status: Acute Code(s): N13.2 - HYDRONEPHROSIS WITH RENAL AND URETERAL CALCU LOUS OBSTRUCTION SNOMED Code(s): 020049884 (2) Calculus in bladder Status: Acute Code(s): N21.0 - CALCULUS IN BLADDER SNOMED Code(s): 37242610 Plan: Cystoscopy, cystolithotripsy, right retrograde pyelogram, possible right ureteroscopy with Holmium laser lithotripsy and ureteral stent placement. The rationale for this approach has been discussed in detail with the patient. Potential risks were reviewed, which include anesthesia, bleeding, infection, ureteral injury, and bladder perforation.
[2019-10-20 11:31] VITALS: BMI 30.8
[~2019-10-22 11:17] MED LIST changes: +fentaNYL (PF) 50 MCG/ML 2 ML AMP IV PRN
[2019-10-22 11:47] VITALS: RESP 16
[2019-10-22 11:47] LABS: Glucose,Whole Blood 107 mg/dL (75-99)
[2019-10-22] MEDS ORDERED: LACTATED RINGERS 1,000 ML IV ONE (11:47)
[2019-10-22] MEDS ORDERED: ONDANSETRON 4 MG/2 ML VIAL ONE (11:51)
[2019-10-22] MEDS ORDERED: ONDANSETRON 4 MG/2 ML VIAL IVP ONE (11:52)
[2019-10-22] MEDS ORDERED: DEXAMETHASONE SOD PHOSPHATE 10 MG/ML 1 ML VIAL IV ONE (11:54)
[2019-10-22] MEDS ORDERED: fentaNYL (PF) 50 MCG/ML 2 ML AMP ONE (12:38)
[2019-10-22] MEDS ORDERED: LIDOCAINE 1% INJ 10MG/ML (20 ML MDV) ONE (12:38)
[2019-10-22] MEDS ORDERED: PROPOFOL 10 MG/ML 20 ML VIAL IV ONE (12:38)
[2019-10-22] MEDS ORDERED: MIDAZOLAM 2 MG/2 ML VIAL ONE (12:38)
[2019-10-22] MEDS ORDERED: SODIUM CHLORIDE 0.9% 1,000 ML IV ONE (12:55)
[2019-10-22] MEDS ORDERED: IOPAMIDOL-370 50ML BTL MISCELLANE ONE (13:01)
[2019-10-22 13:44] VITALS: TEMP 98.6
[2019-10-22 13:47] LABS: Glucose,Whole Blood 105 mg/dL (75-99)
--- NOTE | 2019-10-22 14:02 | P.OP ---
Date of Procedure: 10/22/19 Preoperative Diagnosis: Bladder Calculi Postoperative Diagnosis: Same Procedure(s) Performed: Cystoscopy with Cystolithotripsy, fulguration of bleeders Anesthesia: ABDI Surgeon: Kristian Galindo Estimated Blood Loss (ml): 30 IV fluids (ml): 700 Pathology: other (bladder calculi) Condition: stable Disposition: PACU Indications for Procedure: The patient is a 79-year-old white male with no prior history of urolithiasis. He has recently experienced right lower quadrant abdominal pain. A computed tomography scan of the abdomen and pelvis shows a large left renal cyst, mild right hydronephrosis with a possible 6 mm right distal ureteral calculus, and 2 bladder calculi (4 and 9 mm) within a right bladder wall diverticulum. Operative Findings: Trilobar BPH. Multiple large bladder diverticulum. The right posterior bladder wall diverticulum contained multiple bladder calculi. Description of Procedure: The patient was taken to the operating room and placed in the dorsal lithotomy position, with legs supported in Jay stirrups. The external genitalia was prepped and draped sterilely. The 30 lens was used to introduce the 21-Canadian Gottlieb cystoscopic sheath through the urethra and into the bladder under direct vision. The urethra appeared normal. The prostate showed evidence of trilobar enlargement, which was visually obstructing. The mucosa overlying the median lobe was friable, and the median lobe obscuring the bladder trigone. The bladder was examined in its entirety. The left ureteral orifice could only be seen using the 70 lens, and appeared normal. Several posterior wall bladder diverticuli were seen, the largest located in the right posterior bladder wall measuring several centimeters in size. Multiple calculi were seen within this diverticulum. The largest measured approximately 1.5 cm in diameter. No tumors were seen. The right ureteral orifice could not be identified. Using the 550 micron Holmium laser probe, lithotripsy was performed. The calculi were very dense. After fragmenting the calculi, all fragments were removed. Stone fragments were sent for chemical analysis. Attention was then paid to the mucosa overlying the prostatic median lobe, which was oozing. The Bugbee electrode was used to fulgurate bleeders, attaining excellent hemostasis. The cystoscope was removed, and an 18-Canadian coud-tip Linder catheter was placed. The return was essentially clear. The patient tolerated the procedure well was taken to the recovery room in stable condition.
[2019-10-22 15:05] VITALS: BP 162/77; PULSE 57
== END 2019-10-22 15:21 | disposition home or self-care (01) ==
LOC: OR 11:17
PROVIDERS: ATTEND Urology
DX: N21.0 Calculus in bladder (principal); N13.30 Unspecified hydronephrosis; N32.3 Diverticulum of bladder; N28.1 Cyst of kidney, acquired; E11.9 Type 2 diabetes mellitus without complications; Z86.718 Personal history of other venous thrombosis and embolism; Z96.642 Presence of left artificial hip joint; Z98.890 Other specified postprocedural states; Z79.84 Long term (current) use of oral hypoglycemic drugs; Z79.82 Long term (current) use of aspirin; Z79.899 Other long term (current) drug therapy
CPT/HCPCS: 52318; 82365; J2250; J1100; J0690; J2405; J2001; J3010; J2704

== ENCOUNTER 2020-03-26 16:40 | Emergency (ER) | payer MEDICARE ==
[2020-03-26 16:51] VITALS: RESP 18
[2020-03-26] MEDS ORDERED: ACETAMINOPHEN TAB 325 MG TAB PO STA (17:02)
--- NOTE | 2020-03-26 17:03 | ED ---
Male Urogenital HPI - General Chief complaint: Urogenital Stated complaint: Fever, Chills, possible covid Time Seen by Provider: 03/26/20 16:56 Source: patient, EMS Mode of arrival: EMS - History of Present Illness Initial comments: 79-year-old male presenting to emergency department with chief complaint of fever chills and weakness. Patient states this occurred this morning while he was getting out of bed. Patient states he felt weak and could not get out of bed without help of his . Patient denies taking medication to alleviate the symptoms. Patient denies any chest pain shortness of breath cough or URI-like symptoms. Denies any exposure to unknown cold patient. He does report history of enlarged prostate CA does have frequent urination but denies any urgency or dysuria. Denies any penile discharge, testicular swelling or pain. - Related Data Home Medications Medication Instructions Recorded Confirmed Atorvastatin [Lipitor] 20 mg PO Q48H 10/29/17 10/22/19 lisinopriL [Zestril] 2.5 mg PO DAILY 10/29/17 10/22/19 metFORMIN HCL [Glucophage] 850 mg PO DAILY 10/29/17 10/22/19 Cholecalciferol [Vitamin D3] 1,000 unit PO DAILY 02/14/18 10/22/19 Folic Acid 0.4 mg PO DAILY 02/14/18 10/22/19 Aspirin EC [Ecotrin Low Dose] 81 mg PO DAILY 10/06/19 10/22/19 Multivit-Min/FA/Lycopen/Lutein 1 tab PO DAILY 10/06/19 10/22/19 [Centrum Silver Men Tablet] Escitalopram [Lexapro] 10 mg PO DAILY 10/20/19 10/22/19 Tamsulosin [Flomax] 0.4 mg PO BID 10/20/19 10/22/19 Previous Rx's Medication Instructions Recorded Ciprofloxacin HCl [Cipro] 500 mg PO Q12HR #20 tablet 03/26/20 Allergies Allergy/AdvReac Type Severity Reaction Status Date / Time No Known Allergies Allergy Verified 10/22/19 11:33 Review of Systems ROS Statement: Those systems with pertinent positive or pertinent negative responses have been documented in the HPI. ROS Other: All systems not noted in ROS Statement are negative. Past Medical History Past Medical History: Diabetes Mellitus, Hypertension Additional Past Medical History / Comment(s): DVT 2017, right sided abd. pain History of Any Multi-Drug Resistant Organisms: None Reported Past Surgical History: Back Surgery, Joint Replacement, Orthopedic Surgery Additional Past Surgical History / Comment(s): back surg. x 2, left hip replaced, ruptured achilles tendon repair Past Anesthesia/Blood Transfusion Reactions: No Reported Reaction Past Psychological History: No Psychological Hx Reported Smoking Status: Former smoker Past Alcohol Use History: None Reported Past Drug Use History: None Reported - Past Family History Mother Family Medical History: No Reported History General Exam Limitations: no limitations General appearance: alert, in no apparent distress Head exam: Present: atraumatic, normocephalic, normal inspection Eye exam: Present: normal appearance, PERRL, EOMI Pupils: Present: normal accommodation ENT exam: Present: normal exam, normal oropharynx, mucous membranes moist, TM's normal bilaterally, normal external ear exam Neck exam: Present: normal inspection, full ROM. Absent: tenderness Respiratory exam: Present: normal lung sounds bilaterally. Absent: respiratory distress, wheezes, rales Cardiovascular Exam: Present: regular rate, normal rhythm, normal heart sounds. Absent: systolic murmur, diastolic murmur GI/Abdominal exam: Present: soft. Absent: distended, tenderness, guarding, rebound exam: Present: normal inspection. Absent: testicular tenderness, urethral discharge, scrotal swelling, vertical testicular lie Extremities exam: Present: normal inspection, full ROM, normal capillary refill. Absent: tenderness, pedal edema, joint swelling Back exam: Present: normal inspection, full ROM. Absent: tenderness, CVA tenderness (R), CVA tenderness (L) Neurological exam: Present: alert, oriented X3, normal gait Psychiatric exam: Present: normal affect, normal mood Skin exam: Present: warm, dry, intact, normal color Course Vital Signs 03/26/20 03/26/20 16:45 18:41 Temperature 103.1 F H 101.4 F H Pulse Rate 94 Respiratory 18 Rate Blood Pressure 145/83 O2 Sat by Pulse 97 Oximetry Medical Decision Making - Medical Decision Making 79-year-old male presenting to emergency Department with chief complaint of fever chills and fatigue. Physical examination is unremarkable. Patient is nontoxic and well-appearing. Patient is febrile on initial evaluation. Patient was given Tylenol for fever. Patient was also given some IV fluids as well. CBC and CMP unremarkable. Initial lactate is 3.4. Repeat is 1.4. UA shows elevated leukocyte esterase and white blood cells. Urine culture pending. Patient will be started on Cipro. He will be discharged 10 day course of Cipro. Patient advised to follow with his primary care physician. Strict return parameters were thoroughly discussed the patient was understanding and agreeable. Case discussed with physician. - Lab Data Result diagrams: 03/26/20 17:41 03/26/20 17:41 Lab Results 03/26/20 03/26/20 03/26/20 Range/Units 17:41 17:41 17:41 WBC 10.4 (3.8-10.6) k/uL RBC 5.35 (4.30-5.90) m/uL Hgb 17.2 (13.0-17.5) gm/dL Hct 50.7 (39.0-53.0) % MCV 94.9 (80.0-100.0) fL MCH 32.1 (25.0-35.0) pg MCHC 33.8 (31.0-37.0) g/dL RDW 13.3 (11.5-15.5) % Plt Count 160 (150-450) k/uL MPV 7.4 Neutrophils % 91 % Lymphocytes % 3 % Monocytes % 4 % Eosinophils % 1 % Basophils % 1 % Neutrophils # 9.5 H (1.3-7.7) k/uL Lymphocytes # 0.3 L (1.0-4.8) k/uL Monocytes # 0.4 (0-1.0) k/uL Eosinophils # 0.1 (0-0.7) k/uL Basophils # 0.1 (0-0.2) k/uL Sodium 140 (137-145) mmol/L Potassium 4.1 (3.5-5.1) mmol/L Chloride 108 H (98-107) mmol/L Carbon Dioxide 23 (22-30) mmol/L Anion Gap 9 mmol/L BUN 20 (9-20) mg/dL Creatinine 0.90 (0.66-1.25) mg/dL Est GFR (CKD-EPI)AfAm >90 (>60 ml/min/1.73 sqM) Est GFR (CKD-EPI)NonAf 82 (>60 ml/min/1.73 sqM) Glucose 144 H (74-99) mg/dL Plasma Lactic Acid Naveen (0.7-2.0) mmol/L Calcium 9.6 (8.4-10.2) mg/dL Total Bilirubin 0.9 (0.2-1.3) mg/dL AST 40 (17-59) U/L ALT 29 (4-49) U/L Alkaline Phosphatase 78 (38-126) U/L Total Protein 7.7 (6.3-8.2) g/dL Albumin 4.2 (3.5-5.0) g/dL Urine Color Light Yellow Urine Appearance Cloudy (Clear) Urine pH 5.5 (5.0-8.0) Ur Specific [place] 1.014 (1.001-1.035) Urine Protein Negative (Negative) Urine Glucose (UA) Negative (Negative) Urine Ketones Negative (Negative) Urine Blood Trace H (Negative) Urine Nitrite Positive (Negative) Urine Bilirubin Negative (Negative) Urine Urobilinogen <2.0 (<2.0) mg/dL Ur Leukocyte Esterase Large H (Negative) Urine RBC 3 (0-5) /hpf Urine WBC >182 H (0-5) /hpf Urine Bacteria Occasional H (None) /hpf Urine Mucus Rare H (None) /hpf Coronavirus (PCR) (Not Detectd) Influenza Type A RNA (Not Detectd) Influenza Type B (PCR) (Not Detectd) 03/26/20 03/26/20 03/26/20 Range/Units 17:41 17:41 17:41 WBC (3.8-10.6) k/uL RBC (4.30-5.90) m/uL Hgb (13.0-17.5) gm/dL Hct (39.0-53.0) % MCV (80.0-100.0) fL MCH (25.0-35.0) pg MCHC (31.0-37.0) g/dL RDW (11.5-15.5) % Plt Count (150-450) k/uL MPV Neutrophils % % Lymphocytes % % Monocytes % % Eosinophils % % Basophils % % Neutrophils # (1.3-7.7) k/uL Lymphocytes # (1.0-4.8) k/uL Monocytes # (0-1.0) k/uL Eosinophils # (0-0.7) k/uL Basophils # (0-0.2) k/uL Sodium (137-145) mmol/L Potassium (3.5-5.1) mmol/L Chloride (98-107) mmol/L Carbon Dioxide (22-30) mmol/L Anion Gap mmol/L BUN (9-20) mg/dL Creatinine (0.66-1.25) mg/dL Est GFR (CKD-EPI)AfAm (>60 ml/min/1.73 sqM) Est GFR (CKD-EPI)NonAf (>60 ml/min/1.73 sqM) Glucose (74-99) mg/dL Plasma Lactic Acid Naveen 3.2 H* (0.7-2.0) mmol/L Calcium (8.4-10.2) mg/dL Total Bilirubin (0.2-1.3) mg/dL AST (17-59) U/L ALT (4-49) U/L Alkaline Phosphatase (38-126) U/L Total Protein (6.3-8.2) g/dL Albumin (3.5-5.0) g/dL Urine Color Urine Appearance (Clear) Urine pH (5.0-8.0) Ur Specific [place] (1.001-1.035) Urine Protein (Negative) Urine Glucose (UA) (Negative) Urine Ketones (Negative) Urine Blood (Negative) Urine Nitrite (Negative) Urine Bilirubin (Negative) Urine Urobilinogen (<2.0) mg/dL Ur Leukocyte Esterase (Negative) Urine RBC (0-5) /hpf Urine WBC (0-5) /hpf Urine Bacteria (None) /hpf Urine Mucus (None) /hpf Coronavirus (PCR) Not Detected (Not Detectd) Influenza Type A RNA Not Detected (Not Detectd) Influenza Type B (PCR) Not Detected (Not Detectd) 03/26/20 Range/Units 18:56 WBC (3.8-10.6) k/uL RBC (4.30-5.90) m/uL Hgb (13.0-17.5) gm/dL Hct (39.0-53.0) % MCV (80.0-100.0) fL MCH (25.0-35.0) pg MCHC (31.0-37.0) g/dL RDW (11.5-15.5) % Plt Count (150-450) k/uL MPV Neutrophils % % Lymphocytes % % Monocytes % % Eosinophils % % Basophils % % Neutrophils # (1.3-7.7) k/uL Lymphocytes # (1.0-4.8) k/uL Monocytes # (0-1.0) k/uL Eosinophils # (0-0.7) k/uL Basophils # (0-0.2) k/uL Sodium (137-145) mmol/L Potassium (3.5-5.1) mmol/L Chloride (98-107) mmol/L Carbon Dioxide (22-30) mmol/L Anion Gap mmol/L BUN (9-20) mg/dL Creatinine (0.66-1.25) mg/dL Est GFR (CKD-EPI)AfAm (>60 ml/min/1.73 sqM) Est GFR (CKD-EPI)NonAf (>60 ml/min/1.73 sqM) Glucose (74-99) mg/dL Plasma Lactic Acid Naveen 1.4 (0.7-2.0) mmol/L Calcium (8.4-10.2) mg/dL Total Bilirubin (0.2-1.3) mg/dL AST (17-59) U/L ALT (4-49) U/L Alkaline Phosphatase (38-126) U/L Total Protein (6.3-8.2) g/dL Albumin (3.5-5.0) g/dL Urine Color Urine Appearance (Clear) Urine pH (5.0-8.0) Ur Specific [place] (1.001-1.035) Urine Protein (Negative) Urine Glucose (UA) (Negative) Urine Ketones (Negative) Urine Blood (Negative) Urine Nitrite (Negative) Urine Bilirubin (Negative) Urine Urobilinogen (<2.0) mg/dL Ur Leukocyte Esterase (Negative) Urine RBC (0-5) /hpf Urine WBC (0-5) /hpf Urine Bacteria (None) /hpf Urine Mucus (None) /hpf Coronavirus (PCR) (Not Detectd) Influenza Type A RNA (Not Detectd) Influenza Type B (PCR) (Not Detectd) Disposition Clinical Impression: Urinary tract infection, Fever Disposition: HOME SELF-CARE Condition: Stable Additional Instructions: Take prescribed medication as directed. Follow with primary care physician. Return to emergency department if symptoms worsen. Take Tylenol or Motrin for fever. Prescriptions: Ciprofloxacin HCl [Cipro] 500 mg PO Q12HR #20 tablet Is patient prescribed a controlled substance at d/c from ED?: No Referrals: Robert Montes DO [Primary Care Provider] - 1-2 days Time of Disposition: 19:31
[2020-03-26 17:54] LABS: Basophils # (A) 0.1 k/uL (0-0.2); Basophils % (A) 1 %; Eosinophils # (A) 0.1 k/uL (0-0.7); Eosinophils % (A) 1 %; HCT 50.7 % (39.0-53.0); HGB 17.2 gm/dL (13.0-17.5); Lymphocytes # (A) 0.3 k/uL (1.0-4.8); Lymphocytes % (A) 3 %; MCH 32.1 pg (25.0-35.0); MCHC 33.8 g/dL (31.0-37.0); MCV 94.9 fL (80.0-100.0); Mean Platelet Volume 7.4; Monocytes # (A) 0.4 k/uL (0-1.0); Monocytes % (A) 4 %; Neutrophils # (A) 9.5 k/uL (1.3-7.7); Neutrophils % (A) 91 %; Platelet Count 160 k/uL (150-450); RBC 5.35 m/uL (4.30-5.90); RDW 13.3 % (11.5-15.5); WBC 10.4 k/uL (3.8-10.6)
--- NOTE | 2020-03-26 17:56 | XR ---
EXAMINATION TYPE: XR chest 2V DATE OF EXAM: 03/26/2020 COMPARISON: 10/29/2017 HISTORY: Fever and chills : Heart and mediastinum are normal. Lungs are clear of consolidation. There are no hilar masses. Ther e are chest leads. Bony thorax is intact. IMPRESSION: No active cardiopulmonary disease. No change.
[2020-03-26 18:02] LABS: Appearance,Urine Cloudy (Clear); Bilirubin,Urine Negative (Negative); Color,Urine Light Yellow; Glucose,Urine (UA) Negative (Negative); Ketones,Urine Negative (Negative); PH, Urine 5.5 (5.0-8.0); Protein,Urine Negative (Negative); Specific Gravity,Urine 1.014 (1.001-1.035)
[2020-03-26 18:03] LABS: Bacteria,Urine Occasional /hpf; Blood,Urine Trace (Negative); Leukocyte Esterase,Urine Large (Negative); Mucus,Urine Rare /hpf; Nitrite,Urine Positive (Negative); RBC,Urine 3 /hpf (0-5); Urobilinogen,Urine <2.0 mg/dL (<2.0); WBC,Urine >182 /hpf (0-5)
[2020-03-26 18:04] LABS: ALT 29 U/L (4-49); AST 40 U/L (17-59); African American GFR (CKD) >90 (>60 ml/min/1.73 sqM); Albumin 4.2 g/dL (3.5-5.0); Alkaline Phosphatase 78 U/L (38-126); Anion Gap 9 mmol/L; Blood Urea Nitrogen 20 mg/dL (9-20); Calcium 9.6 mg/dL (8.4-10.2); Carbon Dioxide 23 mmol/L (22-30); Chloride 108 mmol/L (98-107); Glucose 144 mg/dL (74-99); Non-African American GFR(CKD) 82 (>60 ml/min/1.73 sqM); Potassium 4.1 mmol/L (3.5-5.1); Sodium 140 mmol/L (137-145); Total Bilirubin 0.9 mg/dL (0.2-1.3); Total Protein 7.7 g/dL (6.3-8.2)
[2020-03-26] MEDS ORDERED: CIPROFLOXACIN HCL 500 MG TAB PO STA (18:47)
[2020-03-26] MEDS ORDERED: APIXABAN 5 MG TAB PO STA (19:44)
[2020-03-26] MEDS ORDERED: METOPROLOL SUCCINATE (ER) 25 MG TAB.ER.24H PO STA (19:45)
[2020-03-26 20:08] VITALS: BP 138/81; PULSE 82; TEMP 98.3
== END 2020-03-26 20:06 | disposition home or self-care (01) ==
LOC: EC 16:40
DX: N39.0 Urinary tract infection, site not specified (principal); I48.91 Unspecified atrial fibrillation; R53.83 Other fatigue; E11.9 Type 2 diabetes mellitus without complications; I10 Essential (primary) hypertension; Z79.84 Long term (current) use of oral hypoglycemic drugs; Z79.82 Long term (current) use of aspirin; Z79.899 Other long term (current) drug therapy; Z79.01 Long term (current) use of anticoagulants; Z20.828 Contact with and (suspected) exposure to other viral communicable diseases; Z85.46 Personal history of malignant neoplasm of prostate; Z96.642 Presence of left artificial hip joint
CPT/HCPCS: 36415; 71046; 80053; 81001; 83605; 85025; 87040; 87077; 87086; 87186; 87502; 87635; 93005; 99284

== ENCOUNTER → 2020-09-20 | Outpatient (CLI) | payer MEDICARE ==
--- NOTE | 2020-09-20 09:58 | XR ---
EXAMINATION TYPE: XR cervical spine comp DATE OF EXAM: 09/20/2020 TECHNIQUE: Frontal, lateral, oblique, swimmers, and open mouth view of the cervical spine are obtaine d. HISTORY: Spine Pain COMPARISON: None FINDINGS: Vertebral body heights are preserved. There is mild anterolisthesis of C4 on 5 measuring 5 mm. Multil evel endplate sclerosis and osteophytosis is seen. There is bilateral uncovertebral and facet arthrop athy resulting in bony encroachment upon the left C3-4, C4-5, C5-6 and C7-T1 and the right C3-4, C4-5 , C5-6 and C6-7 neural foramina. 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
== END | disposition home or self-care (01) ==
LOC: RADXRMAIN 09:28
PROVIDERS: ATTEND Family Medicine
DX: M50.30 Other cervical disc degeneration, unspecified cervical region (principal); M47.812 Spondylosis without myelopathy or radiculopathy, cervical region; M43.12 Spondylolisthesis, cervical region
CPT/HCPCS: 72050

== ENCOUNTER → 2021-02-08 | Outpatient (CLI) | payer MEDICARE ==
[2021-02-08 08:14] LABS: African American GFR (CKD) >90 (>60 ml/min/1.73 sqM); Blood Urea Nitrogen 16 mg/dL (9-20); Non-African American GFR(CKD) >90 (>60 ml/min/1.73 sqM)
--- NOTE | 2021-02-08 13:41 | CT ---
EXAMINATION TYPE: CT abdomen pelvis w con DATE OF EXAM: 02/08/2021 COMPARISON: CT 10/06/2019 HISTORY: Renal Cyst, N28.1, and 20.2, N23.0 CT DLP: 1708.2 mGycm Automated exposure control for dose reduction was used. TECHNIQUE: Helical acquisition of images from the lung bases through the pelvis have been completed. CONTRAST: Performed with Oral Contrast and with IV Contrast, patient injected with 100 mL of Isovue 300. FINDINGS: Coronary artery calcifications are present. There is a small hiatal hernia. LUNG BASES: Some posterior basilar scarring in the right again noted, posterior diaphragmatic hernia on the left contains fat as on prior AORTA: No significant abnormality is appreciated. LIVER/GB: No significant abnormality is appreciated. PANCREAS: No significant abnormality is seen. SPLEEN: No significant abnormality is seen. ADRENALS: No significant abnormality is seen. KIDNEYS: Left renal cyst measures 11 cm similar to prior exam, there is some calcification noted with in the wall similar to prior, Hounsfield units are similar to the mean of approximately 21. No defini te ureteral obstruction or ureteral calculus identified as described on prior exam. REPRODUCTIVE ORGANS: Enlarged prostate again noted with some associated calcifications BOWEL: No significant abnormality is seen. FREE AIR: No Free Air visible. ASCITES: None visible. PELVIC ADENOPATHY: None visualized. RETROPERITONEAL ADENOPATHY: No Retroperitoneal Adenopathy visible. URINARY BLADDER: X diverticulum present on the right measuring approximately 5.2 cm similar to prior . OSSEOUS STRUCTURES: Streak artifact is present due to patient's hip prosthesis on the left IMPRESSION: NO SIGNIFICANT INTERVAL CHANGE.
== END | disposition home or self-care (01) ==
LOC: RADCTMAIN 07:10
PROVIDERS: ATTEND Family Medicine
DX: N28.1 Cyst of kidney, acquired (principal); N40.0 Benign prostatic hyperplasia without lower urinary tract symptoms
CPT/HCPCS: 82565; 84520; 74177; 36415; Q9967 ×2

== ENCOUNTER → 2021-09-25 | Outpatient (CLI) | payer MEDICARE | END | disposition home or self-care (01) | LOC: LABPAT 12:09 | PROVIDERS: ATTEND Orthopaedic Surgery | DX: Z01.812 Encounter for preprocedural laboratory examination (principal); M16.11 Unilateral primary osteoarthritis, right hip | CPT/HCPCS: 80053; 81003; 85027; 85610; 85730; 86850; 86900; 86901; 87070 ==

== ENCOUNTER 2021-10-06 08:27 | Day surgery (SDC) | payer MEDICARE ==
[2021-09-25 13:13] LABS: Partial Thromboplastin Time 25.4 sec (22.0-30.0); Prothrombin Time 10.6 sec (9.0-12.0)
[2021-09-25 18:37] LABS: HCT 49.8 % (39.6-50.0); MCH 31.3 pg (27.0-32.0); MCHC 32.1 g/dL (32.0-37.0); MCV 97.5 fL (80.0-97.0); Mean Platelet Volume 10.9 fL (9.5-12.2); NRBC Per 100 WBC 0 /100 WBCS (0.0-0.0); Platelet Count 204 X 10*3/uL (140-440); RBC 5.11 X 10*6/uL (4.40-5.60); RDW 12.4 % (11.5-14.5); WBC 5.15 X 10*3/uL (4.50-10.00)
[2021-09-25 18:44] LABS: African American GFR (CKD) 99.1 (60.0-200.0); Albumin 4.3 g/dL (3.8-4.9); Albumin/Globulin Ratio 1.51 (1.60-3.17); BUN/Creat Ratio 20.18 Ratio (12.00-20.00); Blood Urea Nitrogen 15.9 mg/dL (9.0-27.0); Calcium 9.7 mg/dL (8.7-10.3); Carbon Dioxide 24.7 mmol/L (20.0-27.5); Globulin 2.8 g/dL (1.6-3.3); Non-African American GFR(CKD) 85.5 (60.0-200.0); Potassium 4.6 mmol/L (3.5-5.5); Total Bilirubin 0.6 mg/dL (0.30-1.20); Total Protein 7.1 g/dL (6.2-8.2)
[2021-09-25 19:35] LABS: Appearance,Urine Clear (Clear); Bilirubin,Urine Negative (Negative); Blood,Urine Negative (Negative); Color,Urine Yellow (Yellow); Ketones,Urine Negative (Negative); Nitrite,Urine Negative (Negative); Specific Gravity,Urine 1.019 (1.001-1.030); Urobilinogen,Urine 0.2 (0.2,1.0)
[2021-09-29 09:16] VITALS: BMI 31.5
[~2021-10-06 08:27] MED LIST changes: +ACETAMINOPHEN TAB 500 MG TAB PO PRN; +DEXAMETHASONE SOD PHOSPHATE 10 MG/ML 1 ML VIAL IV PRN; +DEXAMETHASONE SOD PHOSPHATE 4 MG/ML 1 ML VIAL IV ONE; +DOCUSATE 100 MG CAP PO PRN; +FAMOTIDINE 20 MG/2 ML VIAL IVP PRN; +KETOROLAC 15 MG/ML 1 ML VIAL IVP PRN; -LACTATED RINGERS 1,000 ML IV SCH; +LIDOCAINE 1% (10MG/ML) FOR IV START INTRADERMA PRN; +ONDANSETRON 4 MG/2 ML VIAL IVP ONE; +ONDANSETRON 4 MG/2 ML VIAL IVP PRN; +ROPIVACAINE/EPI/CLONIDINE/KET 50 ML SYRINGE MISCELLANE PRN; +TRANEXAMIC ACID IN NACL,ISO-OS 1,000 MG in SALINE 1 100ML.BAG IVPB PRN; -fentaNYL (PF) 50 MCG/ML 2 ML AMP IV PRN; +oxyCODONE ER 10 MG TAB.ER.12H PO PRN
[2021-10-06 09:09] LABS: Glucose,Whole Blood 116 mg/dL (70-110)
[2021-10-06] MEDS: LACTATED RINGERS 1,000 ML IV SCH (09:18)
[2021-10-06] MEDS ORDERED: MIDAZOLAM 2 MG/2 ML VIAL IV ONE (09:44)
[2021-10-06] MEDS ORDERED: LIDOCAINE 2% INJ 20 MG/ML (2 ML VIAL) ONE (11:00)
[2021-10-06] MEDS ORDERED: ROCURONIUM 10 MG/ML (5 ML VIAL) IV ONE (11:00)
[2021-10-06] MEDS ORDERED: WATER FOR INJECTION, STERILE 10 ML VIAL IV ONE (11:00)
[2021-10-06] MEDS ORDERED: MIDAZOLAM 2 MG/2 ML VIAL ONE (11:00)
[2021-10-06] MEDS ORDERED: ePHEDrine 50 MG/ML 1 ML VIAL ONE (11:00)
[2021-10-06] MEDS ORDERED: PROPOFOL 10 MG/ML 20 ML VIAL IV ONE (11:00)
[2021-10-06] MEDS ORDERED: fentaNYL (PF) 50 MCG/ML 2 ML AMP ONE (11:00)
[2021-10-06] MEDS ORDERED: TRANEXAMIC ACID IN NACL,ISO-OS 1,000 MG/100 ML BAG ONE (11:00)
[2021-10-06] MEDS ORDERED: NEOSTIGMINE 1 MG/ML 10 ML VIAL ONE (11:00)
[2021-10-06] MEDS ORDERED: SODIUM CHLORIDE 0.9% (PF) 10 ML VIAL ONE (11:00)
[2021-10-06] MEDS ORDERED: SUCCINYLCHOLINE CHLORIDE VIAL 200 MG/10 ML VIAL IV ONE (11:00)
[2021-10-06] MEDS ORDERED: GLYCOPYRROLATE 0.2 MG/ML 2 ML VIAL ONE (11:00)
[2021-10-06] MEDS ORDERED: HYDROmorphone (PF) 1 MG/ML ONE (11:00)
[2021-10-06] MEDS ORDERED: DEXAMETHASONE SOD PHOSPHATE 4 MG/ML 1 ML VIAL ONE (11:00)
[2021-10-06] MEDS ORDERED: ROPIVACAINE 5 MG/ML 30 ML VIAL ONE (11:00)
[2021-10-06] MEDS ORDERED: LACTATED RINGERS 1,000 ML IV ONE ×2 (13:09→14:45)
[2021-10-06] MEDS ORDERED: NALOXONE 0.4 MG/ML 1 ML VIAL IV PRN (14:22)
[2021-10-06] MEDS ORDERED: ONDANSETRON 4 MG/2 ML VIAL IVP PRN (14:22)
[2021-10-06] MEDS ORDERED: HYDROmorphone 0.5 MG/0.5 ML SYRINGE IVP PRN ×2 (14:22)
[2021-10-06] MEDS ORDERED: HYDROcodone/APAP 5-325MG 1 EACH TAB PO PRN (14:22)
--- NOTE | 2021-10-06 14:26 | P.OP ---
Date of Procedure: 10/06/21 Preoperative Diagnosis: 1. Severe right hip osteoarthritis 2. Atrial fibrillation on Eliquis 3. DMII (A1C 6.0 preoperatively) 4. History of DVT Postoperative Diagnosis: Same Procedure(s) Performed: Right direct anterior total hip arthroplasty Implants: 1. Jan Trident II Acetabular Cup, Size #54 (2 screws) 2. [place] Accolade C Size # 5 Femoral Stem, High Offset 3. Biolox Delta 36 mm femoral head, +2.5 mm neck Anesthesia: CANDYA Surgeon: Leonides Callahan Fleet Operations Manager #1: Stephanie Zazueta Estimated Blood Loss (ml): 300 IV fluids (ml): 1,200 Pathology: none sent Condition: stable Disposition: PACU Indications for Procedure: I had a long discussion with the patient in the office on the potential risks and complications of an elective total hip replacement through a direct anterior approach. Risks discussed include, but are certainly not limited to, risks from anesthesia, superficial infection requiring local wound care or antibiotics, deep leanna-prosthetic joint infection and the treatment required to eradicate infection, intraoperative fracture, postoperative periprosthetic fracture, damage to local blood vessels or nerves particularly the lateral femoral cutaneous nerve, delayed wound healing requiring local wound care or possibly surgical debridement, hip dislocation, leg length discrepancy, soft tissue irritation around the total hip implant such as iliopsoas tendinitis or tro chanteric bursitis, wear and osteolysis from the implants, squeaking or audible noises, groin pain, thigh pain, heterotopic ossification, stiffness, aseptic loosening of the implants, dissatisfaction with surgical outcome, need for revision surgery, DVT, PE, swelling of the operative extremity, acute coronary event, stroke, failure to thrive, and possibly loss of life or limb. The patient understands that while these are the most common complications after an elective hip replacement there are certainly other less common complications possible. They were given ample time to ask questions regarding the potential complications of a hip replacement. Following our discussion the patient provided their verbal and written consent to go forward with an elective total hip replacement. Description of Procedure: The patient was identified in the preoperative holding area and the correct hip was marked with my initials. I reviewed the procedure and consent with the p [facility]. All of their questions were answered. The patient was then brought back into the operating room by anesthesia. While on the gurney anesthesia was administered by the anesthesia team. Preoperative antibiotics and tranexamic acid were also given. After the patient was under anesthesia I examined their ankles to determine their preoperative leg length discrepancy. The skin over the anterior aspect of the hip was shaved to remove hair over the site of planned incision. Both feet and ankles were padded with webril and boots for the [place] were applied. The patient was then carefully transferred onto the [place] table. A perineal post was immediately placed. The arms were placed on arm holders and were well-padded. Both boots were secured to the spars on the [place] table. The patient was positioned so that the pelvis was centered over the post. Nonsterile drapes were applied. A timeout was performed identifying the correct patient, operative extremity, and procedure. At this point fluoroscopy was brought in to take preoperative images of the pelvis and operative hip. Using the standing AP pelvis from the office as a template, a comparable image was obtained with fluoroscopy. A metallic bar was used to create a bi-ischial line for use as a reference to leg length adjustments during the procedure. Global offset was also measured on both the operative and nonoperative leg. Fluoroscopy was then brought out and a pre-scrub using a chlorhexidine scrub brush was performed. The operative limb was then prepped and draped in the standard sterile fashion. An anterior longitudinal incision was made lateral and distal to the ASIS. The skin and subcutaneous tissues were incised sharply. The underlying tensor fascia was identified and incised in its midportion. The fascia was dissected free from the underlying muscle and the muscle belly was retracted. A blunt tipped cobra retractor was placed over the superior neck under the muscle fibers of the gluteus minimus. The deep enveloping fascia of the tensor was incised. The anterior leash of vessels were then identified and cauterized. The fascia between the rectus and the capsule was then incised and the pre-capsular fat was excised. A second Cobra was placed inferior to the neck. The interval between the rectus and iliocapsularis and the hip capsule was developed and a retractor was placed carefully over the anterior rim of the acetabulum. A T-shaped anterior capsulotomy was performed. The superior capsular leaflet was left in place in the inferior capsular flap was excised. The Cobra retractors were placed intracapsularly. We then made a femoral neck osteotomy according to preoperative and intraoperative templating and confirmed the level of the osteotomy using fluoroscopic imaging. The femoral head was removed, passed off to the back table, and sized. The superior capsular flap was excised. Retractors were placed circumferentially exposing the acetabulum. We then circumferentially debrided the acetabulum free of labrum and osteophytes. The pulvinar was removed to fully visualize the cotyloid fossa. We then sequentially reamed to achieve peripheral fit and excellent bleeding subchondral bone. The socket was thoroughly irrigated. The acetabular component was impacted into the appropriate position using fluoroscopy to guide version, inclination, and depth of insertion taking care to have a comparable image of the AP pelvis to the standing image taken in the office. An excellent press-fit was achieved and final position was confirmed using fluoroscopy. The press fit was augmented with bony cancellus dome screws. After the cup was securely press-fit into the socket it was noted that there was a large inferior osteophyte. This was scored with a 2 inch osteotome and then carefully removed to prevent inadvertent loosening of the cup. The liner was then impacted into the socket. Attention was then turned to the femur. The remnant dorsal lateral capsule was excised. The short external rotators were visible and protected. A bone hook was used to confirm appropriate translation of the trochanter away from the acetabulum. The leg was then extended and adducted and the bone hook was used to elevate the femur for broaching. On inspection of the patient's proximal femur, they appeared to have poor bone quality so I elected to proceed with cemented fixation of the femoral component. A box osteotome and blunt tipped canal sound was then utilized to gain access to the femoral canal. We then sequentially broached the femur in appropriate anteversion until torsional stability was achieved and the implant was felt to have reached the appropriate size to allow trialing. The neck cut was brought flush to the trial broach with a calcar planar. A trial neck and head were then placed onto the broach and the hip was atraumatically reduced under direct visualization. External rotation to 90 was performed to assess stability. Fluoroscopy was brought in. An AP and lateral fluoroscopic image of the proximal femur was obtained to assess position and fill of the trial broach. An AP of the pelvis was then obtained and matched to the preoperative image taken. A bi-ischial bar was then placed and measurements were taken to assess changes in length and offset. The hip was then carefully dislocated, the proximal femur was exposed, and the trial implants were removed. The proximal femur was then prepared for cementing. The canal was thoroughly irrigated with pulsatile lavage to remove blood and marrow contents. A cement restrictor was placed to a depth just distal to the tip of the final implant. Epinephrine-soaked gauze was then packed into the proximal femur. 2 bags of cement were then mixed using a centrifuge and placed into a ce ment gun. Anesthesia was notified that cementing was about to commence to make sure the patient was appropriately ventilated and hydrated. Once the cement had reached appropriate consistency, the cement gun was used to fill the canal in a retrograde fashion starting at the restrictor. Cement was then pressurized into the canal with a blue tipped registration specialist. The stem was then carefully introdu gil into the cement taking care to guide the implant into appropriate version. The stem was held in position until the cement had fully set. All extra cement was removed while the cement was hardening. The trunnion was cleansed and the final head was tapped into place to engage the [place] taper. The acetabulum was irrigated and visualized to be free of debris. The hip was carefully reduced. Stability was checked clinically with external rotation to 90 and there was no evidence of instability. Final fluoroscopic images were taken. The wound was then thoroughly irrigated and soaked with a dilute Betadine rinse for 3 minutes. 3 L of sterile saline was irrigated through the wound using pulsatile lavage. Local anesthetic cocktail was injected into the soft tissues around the surgical field. A deep drain was placed. The wound was then closed in layers. A sterile dressing was placed over the surgical incision and drain site. The drapes were taken down and the patient was carefully transferred off of the [place] table. Following removal of the boots the leg lengths felt acceptable. The patient was then taken to recovery room having tolerated the procedure well. Stephanie Zazueta PA-C was required as a skilled assistant broker for patient positioning, surgical exposure, retraction, placement of implants, and closure of the surgical wound. PLAN: The patient can weight-bear as tolerated on the operative extremity. 2 doses of postoperative antibiotics. DVT prophylaxis with aspirin 81 mg twice a day based on preoperative risk stratification. Physical therapy for gait training. Discontinue drain postoperative day #1 if output is less than 100 mL per shift.
--- NOTE | 2021-10-06 14:43 | FL ---
EXAMINATION TYPE: FL guidance operating room, XR Hip Limited RT DATE OF EXAM: 10/06/2021 CLINICAL HISTORY: Right hip pain and osteoarthritis. TECHNIQUE: Fluoroscopy. Limited intraoperative views right hip. COMPARISON: None. FINDINGS: Fluoroscopic guidance was provided during right hip replacement procedure performed by Dr. Callahan. A total of 45 seconds of fluoroscopic time was utilized during the procedure and 4 spot i mages was acquired. Intraoperative images show eventual placement of metallic hardware from total right hip arthroplasty that appears satisfactory in position on frontal projection. IMPRESSION: As Above.
[2021-10-06] MEDS: HYDROmorphone 0.5 MG/0.5 ML SYRINGE IVP PRN ×4 (14:44→23:00)
[2021-10-06] MEDS ORDERED: hydrALAZINE HCL 20 MG/ML 1 ML VIAL IVP ONE (15:24)
[2021-10-06] MEDS: SENNOSIDES-DOCUSATE SODIUM 1 EACH TAB PO SCH (20:04)
--- NOTE | 2021-10-06 20:16 | P.CONS ---
History of Present Illness - Reason for Consult Consult date: 10/06/21 Medical management - Chief Complaint Severe right hip osteoarthritis - History of Present Illness 81-year-old female patient with history of DVT, diabetes mellitus type 2, atrial fibrillation and severe right hip osteoarthritis, admitted to the hospital for a connective total right hip replacement through an anterior approach - Patient is status post right direct anterior total hip arthroplasty at time of evaluation - Patient denies any complaint of chest pain or shortness of breath Review of Systems REVIEW OF SYSTEMS: CONSTITUTIONAL: No fever, no malaise, no fatigue. HEENT: No recent visual problems or hearing problems. Denied any sore throat. CARDIOVASCULAR: No chest pain, orthopnea, PND, no palpitations, no syncope. PULMONARY: No shortness of breath, no cough, no hemoptysis. GASTROINTESTINAL: No diarrhea, no nausea, no vomiting, no abdominal pain. NEUROLOGICAL: No headaches, no weakness, no numbness. HEMATOLOGICAL: Denies any bleeding or petechiae. GENITOURINARY: Denies any burning micturition, frequency, or urgency. MUSCULOSKELETAL/RHEUMATOLOGICAL: Denies any joint pain, swelling, or any muscle pain. ENDOCRINE: Denies any polyuria or polydipsia. The rest of the 14-point review of systems is negative. Past Medical History Past Medical History: Atrial Fibrillation, Diabetes Mellitus, Hyperlipidemia, Hypertension, Osteoarthritis (OA), Prostate Disorder, Sleep Apnea/CPAP/BIPAP Additional Past Medical History / Comment(s): DVT 2017, no cpap used, History of Any Multi-Drug Resistant Organisms: None Reported Past Surgical History: Back Surgery, Heart Catheterization, Joint Replacement, Orthopedic Surgery Additional Past Surgical History / Comment(s): back surg. x 2, left hip replaced, ruptured achilles tendon repair, right total hip replacement 10/06/2021 Past Anesthesia/Blood Transfusion Reactions: No Reported Reaction Past Psychological History: No Psychological Hx Reported Smoking Status: Former smoker Past Alcohol Use History: None Reported Additional Past Alcohol Use History / Comment(s): quit smoking 30 yrs. ago, sm oked <ppd for 15 yrs., hx. alcohol abuse, Past Drug Use History: None Reported - Past Family History Mother Family Medical History: No Reported History Medications and Allergies Home Medications Medication Instructions Recorded Confirmed Type Atorvastatin [Lipitor] 20 mg PO DAILY 10/29/17 09/29/21 History lisinopriL [Zestril] 2.5 mg PO DAILY 10/29/17 09/29/21 History metFORMIN HCL [Glucophage] 850 mg PO DAILY 10/29/17 09/29/21 History Cholecalciferol [Vitamin D3] 1,000 unit PO DAILY 02/14/18 09/29/21 History Multivit-Min/FA/Lycopen/Lutein 1 tab PO DAILY 10/06/19 09/29/21 History [Centrum Silver Men Tablet] Escitalopram [Lexapro] 10 mg PO DAILY 10/20/19 09/29/21 History Apixaban [Eliquis] 5 mg PO BID 09/29/21 09/29/21 History Metoprolol Succinate [Toprol XL] 12.5 mg PO DAILY 09/29/21 09/29/21 History traMADol HCL 50 mg PO Q6HR PRN 09/29/21 09/29/21 History Diclofenac Sodium [Voltaren] 75 mg PO BID 30 Days #60 tab 10/06/21 Rx Docusate [Colace] 100 mg PO BID #60 capsule 10/06/21 Rx Doxycycline Monohydrate 100 mg PO BID 14 Days #28 cap 10/06/21 Rx HYDROcodone/APAP 5-325MG [[place] 1 - 2 tab PO Q6HR PRN 7 Days #40 10/06/21 Rx 5-325] tab Omeprazole 40 mg PO DAILY 30 Days #30 cap 10/06/21 Rx Allergies Allergy/AdvReac Type Severity Reaction Status Date / Time No Known Allergies Allergy Verified 09/29/21 09:01 Physical Exam Vitals: Vital Signs Temp Pulse Pulse Resp BP BP Pulse Ox 10/06/21 16:50 65 155/76 95 10/06/21 16:35 66 137/79 97 10/06/21 16:20 60 159/75 97 10/06/21 16:06 97.5 F L 74 15 163/86 95 10/06/21 15:40 64 16 165/78 98 10/06/21 15:25 61 17 166/81 98 10/06/21 15:10 62 16 188/78 97 10/06/21 14:55 55 L 16 190/82 98 10/06/21 14:50 58 L 16 189/95 97 10/06/21 14:35 64 17 179/81 85 L 07/08/22 14:23 97.2 F L 55 L 16 164/77 99 10/06/21 09:50 69 20 138/72 98 10/06/21 08:46 96.8 F L 76 20 171/80 97 Intake and Output 10/06/21 10/06/21 10/06/21 06:59 14:59 22:59 Intake Total 1900 Output Total 200 Balance 1700 Intake: IV 1900 Output: Estimated Blood Loss 200 Other: Weight 99.3 kg 99.3 kg PHYSICAL EXAMINATION: GENERAL: The patient is alert and oriented x3, not in any acute distress. Well developed, well nourished. HEENT: Pupils are round and equally reacting to light. EOMI. No scleral icterus. No conjunctival pallor. Normocephalic, atraumatic. No pharyngeal erythema. No thyromegaly. CARDIOVASCULAR: S1 and S2 present. No murmurs, rubs, or gallops. PULMONARY: Chest is clear to auscultation, no wheezing or crackles. ABDOMEN: Soft, nontender, nondistended, normoactive bowel sounds. No palpable organomegaly. MUSCULOSKELETAL: No joint swelling or deformity. EXTREMITIES: No cyanosis, clubbing, or pedal edema. NEUROLOGICAL: Gross neurological examination did not reveal any focal deficits. SKIN: No rashes. Results CBC & Chem 7: 09/25/21 12:39 09/25/21 12:39 Labs: Abnormal Lab Results - Last 24 Hours (Table) 10/06/21 Range/Units 09:03 POC Glucose (mg/dL) 116 H (70-110) mg/dL Assessment and Plan Assessment: 1. Severe right hip osteoarthritis; status post right direct anterior total hip arthroplasty; POD #0 - Patient can weight-bear as tolerated on the operative extremity; orthopedic recommending to doses of postoperative antibiotics - DVT prophylaxis with aspirin 81 mg twice a day; PT consulted for gait training - Drain to be discontinued on POD #1 is output is less than 100 mils per shift 2. Diabetes mellitus type 2; patient takes metformin 850 mg daily; we will hold off on metformin at this time and monitor Accu-Cheks every before meals and at bedtime with insulin sliding scale 3. Atrial fibrillation; permanent; patient is currently rate controlled on metoprolol 12.5 mg daily and anticoagulated with Eliquis 5 mg twice a day 4. History of DVT; patient is currently on Apixaban 5 mg twice a day 5. Hyperlipidemia; Lipitor 20 mg by mouth daily 6. Hypertension; resume home dose of lisinopril 2.5 mg daily along with metoprolol 12.5 mg daily 7. Depression; resume home dose of Lexapro 10 mg daily DVT prophylaxis; SCDs CODE STATUS; full code
[2021-10-07] MEDS: HYDROcodone/APAP 5-325MG 1 EACH TAB PO PRN ×3 (03:01→17:42)
[2021-10-07] MEDS: INSULIN ASPART (NovoLOG) 100 UNIT/ML VIAL SQ SCH ×4 (08:38→21:55)
[2021-10-07 08:45] LABS: Basophils # (A) 0.02 X 10*3/uL (0.00-0.10); Basophils % (A) 0.1 %; Eosinophils # (A) 0 X 10*3/uL (0.04-0.35); Eosinophils % (A) 0 %; HCT 43.4 % (39.6-50.0); Immature Grans, Automated 0.4 %; Lymphocytes # (A) 0.82 X 10*3/uL (0.90-5.00); Lymphocytes % (A) 6.1 %; MCH 31.4 pg (27.0-32.0); MCHC 32.3 g/dL (32.0-37.0); MCV 97.3 fL (80.0-97.0); Mean Platelet Volume 10.3 fL (9.5-12.2); Monocytes # (A) 1.32 X 10*3/uL (0.20-1.00); Monocytes % (A) 9.9 %; NRBC Per 100 WBC 0 /100 WBCS (0.0-0.0); Neutrophils # (A) 11.14 X 10*3/uL (1.80-7.70); Neutrophils % (A) 83.5 %; Platelet Count 183 X 10*3/uL (140-440); RBC 4.46 X 10*6/uL (4.40-5.60); RDW 12.4 % (11.5-14.5); WBC 13.36 X 10*3/uL (4.50-10.00)
[2021-10-07] MEDS: METOPROLOL TARTRATE 12.5 MG TAB PO SCH (09:01)
[2021-10-07] MEDS: APIXABAN 5 MG TAB PO SCH ×2 (09:01→21:54)
[2021-10-07] MEDS: ESCITALOPRAM 10 MG TAB PO SCH (09:02)
[2021-10-07] MEDS: hydrOXYzine pamoate 25 MG CAP PO PRN ×2 (09:56→17:42)
[2021-10-07 10:30] LABS: African American GFR (CKD) 98.5 (60.0-200.0); Anion Gap 11.2 mmol/L (10.00-18.00); BUN/Creat Ratio 20.88 Ratio (12.00-20.00); Blood Urea Nitrogen 16.7 mg/dL (9.0-27.0); Calcium 8.9 mg/dL (8.7-10.3); Carbon Dioxide 23.8 mmol/L (20.0-27.5); Potassium 5.1 mmol/L (3.5-5.5)
[2021-10-07] MEDS ORDERED: TAMSULOSIN 0.4 MG CAP.ER.24H PO STA (11:07)
[2021-10-07 11:15] LABS: Glucose,Whole Blood 184 mg/dL (70-110)
[2021-10-07 16:55] LABS: Glucose,Whole Blood 130 mg/dL (70-110)
--- NOTE | 2021-10-07 16:59 | P.DS ---
Providers Expected date of discharge: 10/07/21 Attending physician: Leonides Callahan Consults: 10/06/21 14:22 Consult Physician Routine Consulting Provider: Robert Montes Consult Reason/Comments: medical management Do you want consulting provider notified?: Yes Primary care physician: Robert Montes - Discharge Diagnosis(es) (1) Status post total hip replacement, right Patient was admitted to the OR on 10/06/21 to undergo a right total hip arthroplasty. He had failed conservative measures as an outpatient and desired to proceed with elective surgery after given informed consent. He underwent the above procedure which he tolerated well without complication. Postoperative hospital course has remained without complication. On day of discharge he is afebrile, vital signs stable, labs within acceptable ranges, tolerating by mouth meds and diet, voiding without difficulty, positive flatus, denies abdominal pain or calf pain, pain is controlled on oral pain medication and has no new complaints. Wound is benign, neurovascular status is intact, calf is soft and nontender, abdomen soft and nontender. Review of systems is negative for numbness, tingling, fever, chills, chest pain, shortness of breath, nausea, vomiting, dizziness, headaches, slurred speech or other. Current Visit: Yes Status: Acute Priority: Medium Procedures: Right total hip arthroplasty Patient Condition at Discharge: Good Plan - Discharge Summary Discharge Rx Participant: No New Discharge Prescriptions: New HYDROcodone/APAP 5-325MG [[place] 5-325] 1 - 2 tab PO Q6HR PRN 7 Days #40 tab PRN Reason: Pain Docusate [Colace] 100 mg PO BID #60 capsule RX: Doxycycline Monohydrate 100 mg PO BID 14 Days #28 cap RX: Omeprazole 40 mg PO DAILY 30 Days #30 cap RX: Diclofenac Sodium [Voltaren] 75 mg PO BID 30 Days #60 tab No Action metFORMIN HCL [Glucophage] 850 mg PO DAILY lisinopriL [Zestril] 2.5 mg PO DAILY Atorvastatin [Lipitor] 20 mg PO DAILY Cholecalciferol [Vitamin D3] 1,000 unit PO DAILY Multivit-Min/FA/Lycopen/Lutein [Centrum Silver Men Tablet] 1 tab PO DAILY Escitalopram [Lexapro] 10 mg PO DAILY RX: Metoprolol Succinate [Toprol XL] 12.5 mg PO DAILY Apixaban [Eliquis] 5 mg PO BID RX: traMADol HCL 50 mg PO Q6HR PRN PRN Reason: Pain Discharge Medication List Atorvastatin [Lipitor] 20 mg PO DAILY 10/29/17 [History] lisinopriL [Zestril] 2.5 mg PO DAILY 10/29/17 [History] metFORMIN HCL [Glucophage] 850 mg PO DAILY 10/29/17 [History] Cholecalciferol [Vitamin D3] 1,000 unit PO DAILY 02/14/18 [History] Multivit-Min/FA/Lycopen/Lutein [Centrum Silver Men Tablet] 1 tab PO DAILY 10/06/19 [History] Escitalopram [Lexapro] 10 mg PO DAILY 10/20/19 [History] Apixaban [Eliquis] 5 mg PO BID 09/29/21 [History] RX: Metoprolol Succinate [Toprol XL] 12.5 mg PO DAILY 09/29/21 [History] RX: traMADol HCL 50 mg PO Q6HR PRN 09/29/21 [History] Docusate [Colace] 100 mg PO BID #60 capsule 10/06/21 [Rx] HYDROcodone/APAP 5-325MG [[place] 5-325] 1 - 2 tab PO Q6HR PRN 7 Days #40 tab 10/06/21 [Rx] RX: Diclofenac Sodium [Voltaren] 75 mg PO BID 30 Days #60 tab 10/06/21 [Rx] RX: Doxycycline Monohydrate 100 mg PO BID 14 Days #28 cap 10/06/21 [Rx] RX: Omeprazole 40 mg PO DAILY 30 Days #30 cap 10/06/21 [Rx] Follow up Appointment(s)/Referral(s): [facility], [NON-STAFF] - Leonides Callahan MD [Medical Doctor] - 2 Weeks Activity/Diet/Wound Care/Special Instructions: Weight bear as tolerated on operative leg with a walker. Keep operative dressings intact until follow-up appointment in the office. Call the office if dressings becomes saturated or fall off. Take pain medications as prescribed. Take doxycycline as prescribed. Resume Eliquis for DVT prophylaxis. Follow-up at [facility] in two weeks. Call the office with any questions or concerns, Discharge Disposition: HOME WITH HOME HEALTH SERVICES
--- NOTE | 2021-10-07 17:53 | P.PN ---
Subjective Progress Note Date: 10/07/21 81-year-old female patient with history of DVT, diabetes mellitus type 2, atrial fibrillation and severe right hip osteoarthritis, admitted to the hospital for a connective total right hip replacement through an anterior approach - Patient is status post right direct anterior total hip arthroplasty at time of evaluation - Patient denies any complaint of chest pain or shortness of breath Objective - Vital Signs Vital signs: Vital Signs Temp 98.2 F 10/07/21 08:00 Pulse 69 10/07/21 09:30 Resp 19 10/07/21 09:30 BP 139/78 10/07/21 08:00 Pulse Ox 97 10/07/21 08:00 FiO2 Intake & Output 10/06/21 10/07/21 10/07/21 18:59 06:59 18:59 Intake Total 1900 1290 Output Total 300 1250 Balance 1600 40 Weight 99.3 kg Intake: IV 1900 Intake, IV Titration 290 Amount Lactated Ringers 1,000 ml 240 @ 20 mls/hr IV .Q24H PRAVIN Rx#:[id number] ceFAZolin 2 gm In Sodium 50 Chloride 0.9% 50 ml @ 100 mls/hr IVPB Q8H PRAVIN Rx#: [id number] Oral 1000 Output: Drainage 100 100 Right Hip 100 100 Urine 1150 Straight 1100 Estimated Blood Loss 200 Other: # Voids 0 2 # Bowel Movements 0 - Exam GENERAL: The patient is alert and oriented x3, not in any acute distress. Well developed, well nourished. HEENT: Pupils are round and equally reacting to light. EOMI. No scleral icterus. No conjunctival pallor. Normocephalic, atraumatic. No pharyngeal erythema. No thyromegaly. CARDIOVASCULAR: S1 and S2 present. No murmurs, rubs, or gallops. PULMONARY: Chest is clear to auscultation, no wheezing or crackles. ABDOMEN: Soft, nontender, nondistended, normoactive bowel sounds. No palpable organomegaly. MUSCULOSKELETAL: No joint swelling or deformity. EXTREMITIES: No cyanosis, clubbing, or pedal edema. NEUROLOGICAL: Gross neurological examination did not reveal any focal deficits. SKIN: No rashes. - Labs CBC & Chem 7: 10/07/21 06:20 10/07/21 06:20 Labs: Abnormal Lab Results - Last 24 Hours (Table) 10/07/21 10/07/21 10/07/21 Range/Units 06:20 06:20 11:13 WBC 13.36 H (4.50-10.00) X 10*3/uL MCV 97.3 H (80.0-97.0) fL Immature Gran # 0.06 H (0.00-0.04) X 10*3/uL Neutrophils # 11.14 H (1.80-7.70) X 10*3/uL Lymphocytes # 0.82 L (0.90-5.00) X 10*3/uL Monocytes # 1.32 H (0.20-1.00) X 10*3/uL Eosinophils # 0 L (0.04-0.35) X 10*3/uL BUN/Creatinine Ratio 20.88 H (12.00-20.00) Ratio Glucose 154 H (70-110) mg/dL POC Glucose (mg/dL) 184 H (70-110) mg/dL Assessment and Plan Assessment: 1. Severe right hip osteoarthritis; status post right direct anterior total hip arthroplasty; POD #0 - Patient can weight-bear as tolerated on the operative extremity; orthopedic recommending to doses of postoperative antibiotics - DVT prophylaxis with aspirin 81 mg twice a day; PT consulted for gait training - Drain to be discontinued on POD #1 is output is less than 100 mils per shift 2. Diabetes mellitus type 2; patient takes metformin 850 mg daily; we will hold off on metformin at this time and monitor Accu-Cheks every before meals and at bedtime with insulin sliding scale 3. Atrial fibrillation; permanent; patient is currently rate controlled on metoprolol 12.5 mg daily and anticoagulated with Eliquis 5 mg twice a day 4. History of DVT; patient is currently on Apixaban 5 mg twice a day 5. Hyperlipidemia; Lipitor 20 mg by mouth daily 6. Hypertension; resume home dose of lisinopril 2.5 mg daily along with metoprolol 12.5 mg daily 7. Depression; resume home dose of Lexapro 10 mg daily DVT prophylaxis; SCDs CODE STATUS; full code
[2021-10-07] MEDS: HYDROmorphone 0.5 MG/0.5 ML SYRINGE IVP PRN (20:25)
[2021-10-07] MEDS: LACTATED RINGERS 1,000 ML IV SCH (20:40)
[2021-10-07 20:56] LABS: Glucose,Whole Blood 142 mg/dL (70-110)
[2021-10-07] MEDS: SENNOSIDES-DOCUSATE SODIUM 1 EACH TAB PO SCH (21:54)
[2021-10-07 22:40] VITALS: RESP 18
[2021-10-08] MEDS: HYDROmorphone 0.5 MG/0.5 ML SYRINGE IVP PRN (02:24)
[2021-10-08 06:59] LABS: Glucose,Whole Blood 141 mg/dL (70-110)
[2021-10-08] MEDS: HYDROcodone/APAP 5-325MG 1 EACH TAB PO PRN (08:02)
[2021-10-08] MEDS: hydrOXYzine pamoate 25 MG CAP PO PRN (08:02)
--- NOTE | 2021-10-08 08:42 | P.PN ---
Subjective Overall the patient is doing well this morning. His pain in the hip is controlled. He is been up ambulating. His urinary retention has resolved. He continues to have some back pain but this is chronic for him. Objective - Vital Signs Vital signs: Vital Signs Temp 98.6 F 10/08/21 02:00 Pulse 72 10/08/21 02:00 Resp 18 10/08/21 02:00 BP 118/69 10/08/21 02:00 Pulse Ox 94 L 10/08/21 02:00 FiO2 Intake & Output 10/07/21 10/08/21 10/08/21 18:59 06:59 18:59 Intake Total 500 Balance 500 Intake: Oral 500 Other: Voiding Method Urinal # Voids 3 3 - Exam The patient sitting up at bedside in a chair. He appears comfortable. On inspection of the right leg there is some maceration in the right inguinal crease and the dressing was reinforced. The drain site was also reinforced. His thigh is soft. Femoral nerve function is intact. The patient has a chronic drop foot on the right. - Labs CBC & Chem 7: 10/07/21 06:20 10/07/21 06:20 Labs: Abnormal Lab Results - Last 24 Hours (Table) 10/07/21 10/07/21 10/07/21 Range/Units 06:20 06:20 11:13 WBC 13.36 H (4.50-10.00) X 10*3/uL MCV 97.3 H (80.0-97.0) fL Immature Gran # 0.06 H (0.00-0.04) X 10*3/uL Neutrophils # 11.14 H (1.80-7.70) X 10*3/uL Lymphocytes # 0.82 L (0.90-5.00) X 10*3/uL Monocytes # 1.32 H (0.20-1.00) X 10*3/uL Eosinophils # 0 L (0.04-0.35) X 10*3/uL BUN/Creatinine Ratio 20.88 H (12.00-20.00) Ratio Glucose 154 H (70-110) mg/dL POC Glucose (mg/dL) 184 H (70-110) mg/dL 10/07/21 10/07/21 10/08/21 Range/Units 16:51 20:54 06:58 WBC (4.50-10.00) X 10*3/uL MCV (80.0-97.0) fL Immature Gran # (0.00-0.04) X 10*3/uL Neutrophils # (1.80-7.70) X 10*3/uL Lymphocytes # (0.90-5.00) X 10*3/uL Monocytes # (0.20-1.00) X 10*3/uL Eosinophils # (0.04-0.35) X 10*3/uL BUN/Creatinine Ratio (12.00-20.00) Ratio Glucose (70-110) mg/dL POC Glucose (mg/dL) 130 H 142 H 141 H (70-110) mg/dL Assessment and Plan Assessment: Postop day #2 status post right direct anterior total hip arthroplasty Resolved urinary retention Chronic low back pain 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 Will continue weightbearing as tolerated. His dressing was reinforced and I discussed keeping the inguinal crease clean. He is on FOR DVT prophylaxis. We'll likely discharge home later today. Time with Patient: Greater than 30
[2021-10-08 09:02] VITALS: BP 108/65; PULSE 86; TEMP 98
[2021-10-08] MEDS: APIXABAN 5 MG TAB PO SCH (10:12)
[2021-10-08] MEDS: INSULIN ASPART (NovoLOG) 100 UNIT/ML VIAL SQ SCH (10:12)
[2021-10-08] MEDS: METOPROLOL TARTRATE 12.5 MG TAB PO SCH (10:12)
[2021-10-08] MEDS: ESCITALOPRAM 10 MG TAB PO SCH (10:12)
--- NOTE | 2021-10-08 17:03 | P.PN ---
Subjective Progress Note Date: 10/08/21 81-year-old female patient with history of DVT, diabetes mellitus type 2, atrial fibrillation and severe right hip osteoarthritis, admitted to the hospital for a connective total right hip replacement through an anterior approach - Patient is status post right direct anterior total hip arthroplasty at time of evaluation - Patient denies any complaint of chest pain or shortness of breath 10/08/2021 Patient is seen and evaluated in room at bedside; has been able to ambulate the bathroom without any complications Denies any specific complaints Reports might be cleared for discharge home later this morning Objective - Vital Signs Vital signs: Vital Signs Temp 98.0 F 10/08/21 08:00 Pulse 86 10/08/21 08:00 Resp 18 10/08/21 08:00 BP 108/65 10/08/21 08:00 Pulse Ox 96 10/08/21 08:00 FiO2 Intake & Output 10/07/21 10/08/21 10/08/21 18:59 06:59 18:59 Intake Total 500 Balance 500 Intake: Oral 500 Other: Voiding Method Urinal Urinal # Voids 3 3 - Exam GENERAL: The patient is alert and oriented x3, not in any acute distress. Well developed, well nourished. HEENT: Pupils are round and equally reacting to light. EOMI. No scleral icterus. No conjunctival pallor. Normocephalic, atraumatic. No pharyngeal erythema. No thyromegaly. CARDIOVASCULAR: S1 and S2 present. No murmurs, rubs, or gallops. PULMONARY: Chest is clear to auscultation, no wheezing or crackles. ABDOMEN: Soft, nontender, nondistended, normoactive bowel sounds. No palpable organomegaly. MUSCULOSKELETAL: No joint swelling or deformity. EXTREMITIES: No cyanosis, clubbing, or pedal edema. NEUROLOGICAL: Gross neurological examination did not reveal any focal deficits. SKIN: No rashes. - Labs CBC & Chem 7: 10/07/21 06:20 10/07/21 06:20 Labs: Abnormal Lab Results - Last 24 Hours (Table) 10/07/21 10/07/21 10/07/21 Range/Units 06:20 11:13 16:51 BUN/Creatinine Ratio 20.88 H (12.00-20.00) Ratio Glucose 154 H (70-110) mg/dL POC Glucose (mg/dL) 184 H 130 H (70-110) mg/dL 10/07/21 10/08/21 Range/Units 20:54 06:58 BUN/Creatinine Ratio (12.00-20.00) Ratio Glucose (70-110) mg/dL POC Glucose (mg/dL) 142 H 141 H (70-110) mg/dL Assessment and Plan Assessment: 1. Severe right hip osteoarthritis; status post right direct anterior total hip arthroplasty; POD #0 - Patient can weight-bear as tolerated on the operative extremity; orthopedic recommending to doses of postoperative antibiotics - DVT prophylaxis with aspirin 81 mg twice a day; PT consulted for gait training - Drain to be discontinued on POD #1 is output is less than 100 mils per shift 2. Diabetes mellitus type 2; patient takes metformin 850 mg daily; we will hold off on metformin at this time and monitor Accu-Cheks every before meals and at bedtime with insulin sliding scale 3. Atrial fibrillation; permanent; patient is currently rate controlled on metoprolol 12.5 mg daily and anticoagulated with Eliquis 5 mg twice a day 4. History of DVT; patient is currently on Apixaban 5 mg twice a day 5. Hyperlipidemia; Lipitor 20 mg by mouth daily 6. Hypertension; resume home dose of lisinopril 2.5 mg daily along with metoprolol 12.5 mg daily 7. Depression; resume home dose of Lexapro 10 mg daily DVT prophylaxis; SCDs CODE STATUS; full code
--- NOTE | 2021-10-08 17:10 | P.ANPRN ---
Procedure Note - Anesthesia - Nerve Block Performed Right Erector Spinae Single Time Out Performed: Yes Date of Procedure: 10/06/21 Procedure Start Time: :43 Procedure Stop Time: :47 Location of Patient: PreOp Indication: Acute Post-Operative Pain, Requested by Surgeon Sedation Type: Sedate with meaningful contact maintained Preparation: Sterile Prep Position: Prone Needle Types: [place] Needle Gauge: 21 Ultrasound used to visualize needle placement: Yes Ultrasound used to observe medication spread: Yes Blood Aspirated: No Pain Paresthesia on Injection Noted: No Resistance on Injection: Normal Image Stored and Saved: Yes Events: Uneventful and Well Tolerated (Ropivacaine 0.5% 20 mL plus normal saline 10 mL plus dexamethasone 4 mg)
== END 2021-10-08 11:15 | disposition home health service (06) ==
LOC: OR 08:27 → 4SSUR 14:10 → OR 10-08 11:15
PROVIDERS: ATTEND Orthopaedic Surgery
DX: M16.11 Unilateral primary osteoarthritis, right hip (principal); G89.18 Other acute postprocedural pain; E11.69 Type 2 diabetes mellitus with other specified complication; E78.5 Hyperlipidemia, unspecified; I12.9 Hypertensive chronic kidney disease with stage 1 through stage 4 chronic kidney disease, or unspecified chronic kidney disease; E11.22 Type 2 diabetes mellitus with diabetic chronic kidney disease; N18.9 Chronic kidney disease, unspecified; E78.00 Pure hypercholesterolemia, unspecified; I48.20 Chronic atrial fibrillation, unspecified; R26.81 Unsteadiness on feet; Z79.84 Long term (current) use of oral hypoglycemic drugs; Z79.01 Long term (current) use of anticoagulants; Z79.899 Other long term (current) drug therapy; Z83.3 Family history of diabetes mellitus; Z87.891 Personal history of nicotine dependence; Z88.8 Allergy status to other drugs, medicaments and biological substances; G47.30 Sleep apnea, unspecified; Z96.642 Presence of left artificial hip joint; F32.A Depression, unspecified; I48.21 Permanent atrial fibrillation; Z86.718 Personal history of other venous thrombosis and embolism
CPT/HCPCS: 97110; 97162; 64999; 76942; 86900; 86901; 80053; 80048; 85025; 85027; 85610; 85730; 86850; 81003; 87070; 73501; 27130; C1776; C1713; J2250; J0171; J0360; J1100; J0690 ×2; J2405 ×2; J1885; J1170 ×3

== ENCOUNTER 2021-10-09 11:34 | Observation (INO) | payer MEDICARE ==
[2021-10-09] MEDS ORDERED: KETOROLAC 15 MG/ML 1 ML VIAL IVP STA (12:25)
[2021-10-09] MEDS ORDERED: HYDROmorphone 0.5 MG/0.5 ML SYRINGE IVP STA ×2 (12:26→15:42)
[2021-10-09 12:53] LABS: Basophils % (A) 0 %; Eosinophils # (A) 0.1 k/uL (0-0.7); Eosinophils % (A) 1 %; HCT 36.3 % (39.0-53.0); HGB 12.5 gm/dL (13.0-17.5); Lymphocytes # (A) 0.5 k/uL (1.0-4.8); Lymphocytes % (A) 7 %; MCH 32.9 pg (25.0-35.0); MCHC 34.4 g/dL (31.0-37.0); MCV 95.6 fL (80.0-100.0); Mean Platelet Volume 7.5; Monocytes # (A) 0.7 k/uL (0-1.0); Monocytes % (A) 9 %; Neutrophils % (A) 81 %; Platelet Count 152 k/uL (150-450); RDW 12.1 % (11.5-15.5); WBC 7.3 k/uL (3.8-10.6)
--- NOTE | 2021-10-09 13:09 | ED ---
General Adult HPI - General Chief complaint: Back Pain/Injury Stated complaint: Back Pain Time Seen by Provider: 10/09/21 12:00 Source: patient, EMS, RN notes reviewed, old records reviewed Mode of arrival: EMS Limitations: no limitations - History of Present Illness Initial comments: Is a 81-year-old male who presents emergency department stating that he had hip surgery on Saturday. Patient states it feels just fine. Patient states during the surgery at some point in time he needs to be laid on his stomach when it occurs he gets back pain. Patient states the most concerning thing today is that he has pain under his ribs bilaterally which is something he normally does not have. And the fact that he has not had a bowel movement since Saturday and he is finding it difficult to urinate as much as he thinks she should be. Patient denies any decreased sensation in the perineum. Patient states pressing on the abdomen does not seem to increase the pain per patient denies being short of breath or have any chest pain. Patient denies any fever chills or cough. Patient states movement does increase his back pain but does not seem to increase the pain under his ribs. - Related Data Home Medications Medication Instructions Recorded Confirmed lisinopriL [Zestril] 2.5 mg PO DAILY 10/29/17 10/09/21 metFORMIN HCL [Glucophage] 850 mg PO DAILY 10/29/17 10/09/21 Cholecalciferol [Vitamin D3] 25 mcg PO DAILY 02/14/18 10/09/21 Multivit-Min/FA/Lycopen/Lutein 1 tab PO DAILY 10/06/19 10/09/21 [Centrum Silver Men Tablet] Escitalopram [Lexapro] 10 mg PO DAILY 10/20/19 10/09/21 Apixaban [Eliquis] 5 mg PO BID 09/29/21 10/09/21 Metoprolol Succinate [Toprol XL] 12.5 mg PO DAILY 09/29/21 10/09/21 traMADol HCL 50 mg PO Q6HR PRN 09/29/21 10/09/21 Atorvastatin Calcium [Lipitor] 80 mg PO DAILY 10/09/21 10/09/21 HYDROcodone/APAP 7.5-325MG [[place] 1 - 2 tab PO Q6H PRN 10/09/21 10/09/21 7.5-325] Previous Rx's Medication Instructions Recorded Diclofenac Sodium [Voltaren] 75 mg PO BID 30 Days #60 tab 10/06/21 Docusate [Colace] 100 mg PO BID #60 capsule 10/06/21 Doxycycline Monohydrate 100 mg PO BID 14 Days #28 cap 10/06/21 Omeprazole 40 mg PO DAILY 30 Days #30 cap 10/06/21 Allergies Allergy/AdvReac Type Severity Reaction Status Date / Time No Known Allergies Allergy Verified 10/09/21 13:20 Review of Systems ROS Statement: Those systems with pertinent positive or pertinent negative responses have been documented in the HPI. ROS Other: All systems not noted in ROS Statement are negative. Past Medical History Past Medical History: Diabetes Mellitus, Hypertension Additional Past Medical History / Comment(s): DVT 2017, right sided abd. pain History of Any Multi-Drug Resistant Organisms: None Reported Past Surgical History: Back Surgery, Joint Replacement, Orthopedic Surgery Additional Past Surgical History / Comment(s): back surg. x 2, left hip replaced, ruptured achilles tendon repair, right total hip replacement 10/06/2021 Past Anesthesia/Blood Transfusion Reactions: No Reported Reaction Past Psychological History: No Psychological Hx Reported Smoking Status: Former smoker Past Alcohol Use History: None Reported Past Drug Use History: None Reported - Past Family History Mother Family Medical History: No Reported History Father Family Medical History: No Reported History Additional Family Medical History / Comment(s): Father was healthy General Exam - General Exam Comments Initial Comments: GENERAL: Patient is well-developed and well-nourished. Patient is nontoxic and well- hydrated and is in mild distress. ENT: Neck is soft and supple. No significant lymphadenopathy is noted. Oropharynx is clear. Moist mucous membranes. Neck has full range of motion without eliciting any pain. EYES: The sclera were anicteric and conjunctiva were pink and moist. Extraocular mov ements were intact and pupils were equal round and reactive to light. Eyelids were unremarkable. PULMONARY: Unlabored respirations. Good breath sounds bilaterally. No audible rales rhonchi or wheezing was noted. CARDIOVASCULAR: There is a regular rate and rhythm without any murmurs gallops or rubs. ABDOMEN: Soft and nontender with normal bowel sounds. SKIN: Skin is clear with no lesions or rashes and otherwise unremarkable. NEUROLOGIC: Patient is alert and oriented x3. Cranial nerves II through XII are grossly intact. Motor and sensory are also intact. Normal speech, volume and content. Symmetrical smile. MUSCULOSKELETAL: Normal extremities with adequate strength and full range of motion. LYMPHATICS: No significant lymphadenopathy is noted PSYCHIATRIC: Normal psychiatric evaluation. Limitations: no limitations Course Vital Signs 10/09/21 10/09/21 10/09/21 11:36 14:35 15:29 Temperature 98.4 F 98.0 F Pulse Rate 83 78 82 Respiratory 16 18 18 Rate Blood Pressure 157/80 179/103 174/89 O2 Sat by Pulse 96 94 L 94 L Oximetry 10/09/21 15:43 Temperature Pulse Rate 78 Respiratory 18 Rate Blood Pressure 164/91 O2 Sat by Pulse 95 Oximetry Medical Decision Making - Medical Decision Making EKG shows atrial fibrillation at 70 bpm QRS of 102 QT interval 431 QTC is 464 per patient's EKG shows no ST segment elevation or depression. KUB shows no acute abnormality. Dr. Callahan came to the emergency department and saw the patient and agreed the patient should be admitted and admitted under him. I admitted the patient and I wrote admitting orders. - Lab Data Result diagrams: 10/09/21 12:41 10/09/21 12:41 Lab Results 10/09/21 10/09/21 10/09/21 Range/Units 12:41 12:41 12:41 WBC 7.3 (3.8-10.6) k/uL RBC 3.80 L (4.30-5.90) m/uL Hgb 12.5 L (13.0-17.5) gm/dL Hct 36.3 L (39.0-53.0) % MCV 95.6 (80.0-100.0) fL MCH 32.9 (25.0-35.0) pg MCHC 34.4 (31.0-37.0) g/dL RDW 12.1 (11.5-15.5) % Plt Count 152 (150-450) k/uL MPV 7.5 Neutrophils % 81 % Lymphocytes % 7 % Monocytes % 9 % Eosinophils % 1 % Basophils % 0 % Neutrophils # 6.0 (1.3-7.7) k/uL Lymphocytes # 0.5 L (1.0-4.8) k/uL Monocytes # 0.7 (0-1.0) k/uL Eosinophils # 0.1 (0-0.7) k/uL Basophils # 0.0 (0-0.2) k/uL Sodium 132 L (137-145) mmol/L Potassium 3.8 (3.5-5.1) mmol/L Chloride 101 (98-107) mmol/L Carbon Dioxide 26 (22-30) mmol/L Anion Gap 5 mmol/L BUN 15 (9-20) mg/dL Creatinine 0.55 L (0.66-1.25) mg/dL Est GFR (CKD-EPI)AfAm >90 (>60 ml/min/1.73 sqM) Est GFR (CKD-EPI)NonAf >90 (>60 ml/min/1.73 sqM) Glucose 170 H (74-99) mg/dL Calcium 8.0 L (8.4-10.2) mg/dL Total Bilirubin 1.5 H (0.2-1.3) mg/dL AST 74 H (17-59) U/L ALT 24 (4-49) U/L Alkaline Phosphatase 57 (38-126) U/L Total Protein 6.0 L (6.3-8.2) g/dL Albumin 3.2 L (3.5-5.0) g/dL Urine Color Yellow Urine Appearance Clear (Clear) Urine pH 6.0 (5.0-8.0) Ur Specific [place] 1.014 (1.001-1.035) Urine Protein Negative (Negative) Urine Glucose (UA) Negative (Negative) Urine Ketones 1+ H (Negative) Urine Blood Moderate H (Negative) Urine Nitrite Negative (Negative) Urine Bilirubin Negative (Negative) Urine Urobilinogen <2.0 (<2.0) mg/dL Ur Leukocyte Esterase Negative (Negative) Urine RBC 8 H (0-5) /hpf Urine WBC 3 (0-5) /hpf Urine Mucus Occasional H (None) /hpf Disposition Clinical Impression: Back pain, Urinary urgency, Chest wall pain Disposition: ADMITTED IP TO THIS [facility] Time of Disposition: 14:21
[2021-10-09 13:10] LABS: Appearance,Urine Clear (Clear); Bilirubin,Urine Negative (Negative); Blood,Urine Moderate (Negative); Color,Urine Yellow; Glucose,Urine (UA) Negative (Negative); Ketones,Urine 1+ (Negative); Leukocyte Esterase,Urine Negative (Negative); Mucus,Urine Occasional /hpf; Nitrite,Urine Negative (Negative); Protein,Urine Negative (Negative); RBC,Urine 8 /hpf (0-5); Specific Gravity,Urine 1.014 (1.001-1.035); Urobilinogen,Urine <2.0 mg/dL (<2.0); WBC,Urine 3 /hpf (0-5)
[2021-10-09 13:15] LABS: Albumin 3.2 g/dL (3.5-5.0); Anion Gap 5 mmol/L; Carbon Dioxide 26 mmol/L (22-30); Chloride 101 mmol/L (98-107); Glucose 170 mg/dL (74-99); Potassium 3.8 mmol/L (3.5-5.1); Sodium 132 mmol/L (137-145)
[2021-10-09 13:17] LABS: ALT 24 U/L (4-49); AST 74 U/L (17-59); African American GFR (CKD) >90 (>60 ml/min/1.73 sqM); Alkaline Phosphatase 57 U/L (38-126); Blood Urea Nitrogen 15 mg/dL (9-20); Non-African American GFR(CKD) >90 (>60 ml/min/1.73 sqM); Total Bilirubin 1.5 mg/dL (0.2-1.3)
--- NOTE | 2021-10-09 14:09 | XR ---
EXAMINATION TYPE: XR KUB DATE OF EXAM: 10/09/2021 1:59 PM CLINICAL HISTORY: Abdominal and flank pain. Low urinary output. TECHNIQUE: 3 supine KUB images of the abdomen are obtained. COMPARISON: CT abdomen and pelvis February 08, 2021. FINDINGS: Elevated right hemidiaphragm is redemonstrated. Scattered gas is seen in non-distended smal l bowel loops. Gas and fecal material is seen in non-distended colon. Metallic hardware from bilatera l hip arthroplasty is now present. Multilevel spurring in the thoracolumbar spine. No nephrolithiasis . Visualized left lung base is clear. IMPRESSION: Overall nonobstructive bowel gas pattern.
[2021-10-09] MEDS ORDERED: SODIUM CHLORIDE 0.9% 1,000 ML IV ONE (14:35)
[2021-10-09] MEDS ORDERED: HYDROmorphone 0.5 MG/0.5 ML SYRINGE IVP PRN (14:37)
[2021-10-09] MEDS: KETOROLAC 15 MG/ML 1 ML VIAL IVP SCH ×2 (16:54→23:40)
[2021-10-09 17:56] LABS: Glucose,Whole Blood 160 mg/dL (70-110)
[2021-10-09] MEDS ORDERED: HYDROcodone/APAP 5-325MG 1 EACH TAB PO PRN (18:11)
--- NOTE | 2021-10-09 18:14 | P.HPOR ---
History of Present Illness H&P Date: 10/09/21 This patient is a 81- year old male who is status-post right direct anterior total hip arthroplasty on 10/06/[address] Callahan. Patient was discharged home yesterday. Patient began experiencing chest pain and increased low back pain this morning. He also complains of urinary retention. Therefore, patient's called EMS and the patient was transported to [facility] emergency department. Patient was admitted under the care of Dr. Callahan with consults placed to internal medicine and urology. Patient is examined bedside in the emergency department this afternoon with Dr. Callahan. He states he is having minimal right hip pain. He has no complaints in regards to his right hip. Vital signs stable. Past Medical History Past Medical History: Diabetes Mellitus, Hypertension Additional Past Medical History / Comment(s): DVT 2017, right sided abd. pain History of Any Multi-Drug Resistant Organisms: None Reported Past Surgical History: Back Surgery, Joint Replacement, Orthopedic Surgery Additional Past Surgical History / Comment(s): back surg. x 2, left hip replaced, ruptured achilles tendon repair, right total hip replacement 10/06/2021 Past Anesthesia/Blood Transfusion Reactions: No Reported Reaction Past Psychological History: No Psychological Hx Reported Smoking Status: Former smoker Past Alcohol Use History: None Reported Past Drug Use History: None Reported - Past Family History Mother Family Medical History: No Reported History Additional Family Medical History / Comment(s): Heart issues Father Family Medical History: No Reported History Additional Family Medical History / Comment(s): Father was healthy Medications and Allergies Home Medications Medication Instructions Recorded Confirmed Type lisinopriL [Zestril] 2.5 mg PO DAILY 10/29/17 10/09/21 History metFORMIN HCL [Glucophage] 850 mg PO DAILY 10/29/17 10/09/21 History Cholecalciferol [Vitamin D3] 25 mcg PO DAILY 02/14/18 10/09/21 History Multivit-Min/FA/Lycopen/Lutein 1 tab PO DAILY 10/06/19 10/09/21 History [Centrum Silver Men Tablet] Escitalopram [Lexapro] 10 mg PO DAILY 10/20/19 10/09/21 History Apixaban [Eliquis] 5 mg PO BID 09/29/21 10/09/21 History Metoprolol Succinate [Toprol XL] 12.5 mg PO DAILY 09/29/21 10/09/21 History traMADol HCL 50 mg PO Q6HR PRN 09/29/21 10/09/21 History Diclofenac Sodium [Voltaren] 75 mg PO BID 30 Days #60 tab 10/06/21 10/09/21 Rx Docusate [Colace] 100 mg PO BID #60 capsule 10/06/21 10/09/21 Rx Doxycycline Monohydrate 100 mg PO BID 14 Days #28 cap 10/06/21 10/09/21 Rx Omeprazole 40 mg PO DAILY 30 Days #30 cap 10/06/21 10/09/21 Rx Atorvastatin Calcium [Lipitor] 80 mg PO DAILY 10/09/21 10/09/21 History HYDROcodone/APAP 7.5-325MG [[place] 1 - 2 tab PO Q6H PRN 10/09/21 10/09/21 History 7.5-325] Allergies Allergy/AdvReac Type Severity Reaction Status Date / Time No Known Allergies Allergy Verified 10/09/21 13:20 Physical Examination On examination, patient is sitting up in bed in no apparent distress. He is alert and orientated x3. A focused examination of his right hip is conducted. On inspection of the right hip, Opsite dressing is removed and reveals a well- healing incision with no active drainage. No erythema. Mild swelling of the thigh, thigh is soft and compressible. Motor and sensory function intact RLE, patient does have a chronic right foot drop. The right lower extremity is warm and well perfused. Calf non-tender. Results - Labs Labs: Abnormal Lab Results - Last 24 Hours (Table) 10/09/21 10/09/21 10/09/21 Range/Units 12:41 12:41 12:41 RBC 3.80 L (4.30-5.90) m/uL Hgb 12.5 L (13.0-17.5) gm/dL Hct 36.3 L (39.0-53.0) % Lymphocytes # 0.5 L (1.0-4.8) k/uL Sodium 132 L (137-145) mmol/L Creatinine 0.55 L (0.66-1.25) mg/dL Glucose 170 H (74-99) mg/dL POC Glucose (mg/dL) (70-110) mg/dL Calcium 8.0 L (8.4-10.2) mg/dL Total Bilirubin 1.5 H (0.2-1.3) mg/dL AST 74 H (17-59) U/L Total Protein 6.0 L (6.3-8.2) g/dL Albumin 3.2 L (3.5-5.0) g/dL Urine Ketones 1+ H (Negative) Urine Blood Moderate H (Negative) Urine RBC 8 H (0-5) /hpf Urine Mucus Occasional H (None) /hpf 10/09/21 Range/Units 17:54 RBC (4.30-5.90) m/uL Hgb (13.0-17.5) gm/dL Hct (39.0-53.0) % Lymphocytes # (1.0-4.8) k/uL Sodium (137-145) mmol/L Creatinine (0.66-1.25) mg/dL Glucose (74-99) mg/dL POC Glucose (mg/dL) 160 H (70-110) mg/dL Calcium (8.4-10.2) mg/dL Total Bilirubin (0.2-1.3) mg/dL AST (17-59) U/L Total Protein (6.3-8.2) g/dL Albumin (3.5-5.0) g/dL Urine Ketones (Negative) Urine Blood (Negative) Urine RBC (0-5) /hpf Urine Mucus (None) /hpf H & H 10/09/21 Range/Units 12:41 Hgb 12.5 L (13.0-17.5) gm/dL Hct 36.3 L (39.0-53.0) % Result Diagrams: 10/09/21 12:41 10/09/21 12:41 Assessment and Plan Assessment: Status-post right direct anterior total hip arthroplasty on 10/06/21. Re-admission for evaluation of urinary retention, low back pain and rehab placement Chronic right foot drop Plan: - Patient may weight bear as tolerated on right lower extremity with a walker. - Pain management as needed. - Eliquis has been resumed for DVT prophylaxis. - Prevena wound vac placed over right hip incision. Leave wound vac in place for one week. - Internal medicine, urology consulted for medical management. Will consult Dr. Ordaz for evaluation of increased low back pain. - Case management consulted for discharge planning and rehab placement.
[2021-10-09] MEDS: DOXYCYCLINE 100 MG CAP PO SCH (20:18)
[2021-10-09 20:25] LABS: Glucose,Whole Blood 192 mg/dL (70-110)
[2021-10-10] MEDS: KETOROLAC 15 MG/ML 1 ML VIAL IVP SCH ×2 (05:31→13:28)
[2021-10-10 07:22] LABS: Glucose,Whole Blood 127 mg/dL (70-110)
--- NOTE | 2021-10-10 09:05 | P.CNOR ---
History of Present Illness - [facility] Consult date: 10/10/21 Requesting physician: Stephanie Zazueta Consult reason: low back pain (Acute on chronic low back pain) History of present illness: Patient is a very pleasant 81-year-old male who is seen and examined at bedside for consultation for acute on chronic low back pain. He is status post right direct anterior total hip arthroplasty performed on 10/06/[address] Callahan. He was discharged home on 10/08/2021. He begins experiencing increased chest wall pain and increased low back pain with complaints of urinary retention. He was brought to [facility] for further evaluation. Consultation has been placed by urology who saw the patient this morning. Nursing states patient feels he may have passed a kidney stone and this has helped improve his pain. He continues to be seen by medicine. Patient states this morning his back pain has returned to his normal baseline. He is no longer experiencing any increased low back pain. He does admit to known significant degenerative changes throughout his lumbar spine. He has a history of surgical intervention performed twice at his lumbar spine. He states his last surgery was performed approximately 20 years ago. Following his second surgery, he has right foot drop. He utilizes an AFO brace to aid in ambulation. He also admits to using an LSO brace for comfort support of his lumbar spine. Currently he does not feel he needs any further treatment or evaluation in regards to his lumbar spine. He would like to follow-up in the outpatient setting for further evaluation. Patient is currently on Eliquis for DVT prophylaxis. Patient is planning to be discharged to a rehabilitation facility the time of discharge. Patient's other medical diagnoses include hypertension, unsteady gait, and type 2 diabetes. Past Medical History Past Medical History: Diabetes Mellitus, Hypertension Additional Past Medical History / Comment(s): DVT 2017, right sided abd. pain History of Any Multi-Drug Resistant Organisms: None Reported Past Surgical History: Back Surgery, Joint Replacement, Orthopedic Surgery Additional Past Surgical History / Comment(s): back surg. x 2, left hip replaced, ruptured achilles tendon repair, right total hip replacement 10/06/2021 Past Anesthesia/Blood Transfusion Reactions: No Reported Reaction Past Psychological History: No Psychological Hx Reported Smoking Status: Former smoker Past Alcohol Use History: None Reported Past Drug Use History: None Reported - Past Family History Mother Family Medical History: No Reported History Additional Family Medical History / Comment(s): Heart issues Father Family Medical History: No Reported History Additional Family Medical History / Comment(s): Father was healthy Medications and Allergies Home Medications Medication Instructions Recorded Confirmed Type lisinopriL [Zestril] 2.5 mg PO DAILY 10/29/17 10/09/21 History metFORMIN HCL [Glucophage] 850 mg PO DAILY 10/29/17 10/09/21 History Cholecalciferol [Vitamin D3] 25 mcg PO DAILY 02/14/18 10/09/21 History Multivit-Min/FA/Lycopen/Lutein 1 tab PO DAILY 10/06/19 10/09/21 History [Centrum Silver Men Tablet] Escitalopram [Lexapro] 10 mg PO DAILY 10/20/19 10/09/21 History Apixaban [Eliquis] 5 mg PO BID 09/29/21 10/09/21 History Metoprolol Succinate [Toprol XL] 12.5 mg PO DAILY 09/29/21 10/09/21 History traMADol HCL 50 mg PO Q6HR PRN 09/29/21 10/09/21 History Diclofenac Sodium [Voltaren] 75 mg PO BID 30 Days #60 tab 10/06/21 10/09/21 Rx Docusate [Colace] 100 mg PO BID #60 capsule 10/06/21 10/09/21 Rx Doxycycline Monohydrate 100 mg PO BID 14 Days #28 cap 10/06/21 10/09/21 Rx Omeprazole 40 mg PO DAILY 30 Days #30 cap 10/06/21 10/09/21 Rx Atorvastatin Calcium [Lipitor] 80 mg PO DAILY 10/09/21 10/09/21 History HYDROcodone/APAP 7.5-325MG [[place] 1 - 2 tab PO Q6H PRN 10/09/21 10/09/21 History 7.5-325] HYDROcodone/APAP 5-325MG [[place] 1 tab PO Q6HR PRN 7 Days #30 tab 10/10/21 Rx 5-325] Allergies Allergy/AdvReac Type Severity Reaction Status Date / Time No Known Allergies Allergy Verified 10/09/21 13:20 Physical Examination Physical exam: Patient is awake, alert, and oriented 3 Vital signs stable Good chest excursion with deep inspiration and expiration Examination of lumbar spine reveals skin is intact with no abrasions, lacerations, or bruises; no erythema, purulence or signs of infection Evidence of a large well-healed incision along the midline of the lumbar spine No pain with palpation along the lumbar spine Dorsiflexion, plantarflexion, and extensor hallucis longus positive sustained on the left Motor strength of the right lower extremity is 0/5 including dorsiflexion and extensor hallucis longus on the right Motor strength of the right lower extremity is 5/5 including plantarflexion on the right Patient does have difficulty performing hip flexion on the right Surgical dressing remains intact over the right hip Patient is able to perform knee extension bilaterally No signs or symptoms of DVT; no calf pain Results Pertinent studies: CT the abdomen and pelvis reviewed for orthopedic purposes taken on 02/08/2021: L5-S1 severe degenerative disc disease with large anterior osteophytic spurring and facet arthrosis; multilevel stenosis throughout the lumbar spine; no compr ession fracture deformity - Labs Labs: Abnormal Lab Results - Last 24 Hours (Table) 10/09/21 10/09/21 10/09/21 Range/Units 12:41 12:41 12:41 RBC 3.80 L (4.30-5.90) m/uL Hgb 12.5 L (13.0-17.5) gm/dL Hct 36.3 L (39.0-53.0) % Lymphocytes # 0.5 L (1.0-4.8) k/uL Sodium 132 L (137-145) mmol/L Creatinine 0.55 L (0.66-1.25) mg/dL Glucose 170 H (74-99) mg/dL POC Glucose (mg/dL) (70-110) mg/dL Calcium 8.0 L (8.4-10.2) mg/dL Total Bilirubin 1.5 H (0.2-1.3) mg/dL AST 74 H (17-59) U/L Total Protein 6.0 L (6.3-8.2) g/dL Albumin 3.2 L (3.5-5.0) g/dL Urine Ketones 1+ H (Negative) Urine Blood Moderate H (Negative) Urine RBC 8 H (0-5) /hpf Urine Mucus Occasional H (None) /hpf 10/09/21 10/09/21 10/10/21 Range/Units 17:54 20:23 07:20 RBC (4.30-5.90) m/uL Hgb (13.0-17.5) gm/dL Hct (39.0-53.0) % Lymphocytes # (1.0-4.8) k/uL Sodium (137-145) mmol/L Creatinine (0.66-1.25) mg/dL Glucose (74-99) mg/dL POC Glucose (mg/dL) 160 H 192 H 127 H (70-110) mg/dL Calcium (8.4-10.2) mg/dL Total Bilirubin (0.2-1.3) mg/dL AST (17-59) U/L Total Protein (6.3-8.2) g/dL Albumin (3.5-5.0) g/dL Urine Ketones (Negative) Urine Blood (Negative) Urine RBC (0-5) /hpf Urine Mucus (None) /hpf H & H 10/09/21 Range/Units 12:41 Hgb 12.5 L (13.0-17.5) gm/dL Hct 36.3 L (39.0-53.0) % Result Diagrams: 10/09/21 12:41 10/09/21 12:41 Assessment and Plan Assessment: Assessment: Acute on chronic low back pain, resolved Lumbar degenerative disc disease Lumbar facet arthrosis Lumbar spinal stenosis Chronic right lower extremity weakness Chronic right foot drop History of lumbar surgery x2 with last surgery approximately 20 years ago Status post right direct anterior total hip arthroplasty performed on 10/06/2021 Currently on Eliquis for DVT prophylaxis Postoperative urinary retension Unsteady gait Type 2 diabetes Hypertension (1) Acute exacerbation of chronic low back pain Current Visit: Yes Status: Acute Code(s): M54.50 - LOW BACK PAIN, UNSPECIFIED; G89.29 - OTHER CHRONIC PAIN SNOMED Code(s): 087415342 (2) History of lumbar surgery Current Visit: Yes Status: Acute Code(s): Z98.890 - OTHER SPECIFIED POSTPROCEDURAL STATES SNOMED Code(s): 407198102 (3) Lumbar degenerative disc disease Current Visit: Yes Status: Acute Code(s): M51.36 - OTHER INTERVERTEBRAL DISC DEGENERATION, LUMBAR REGION SNOMED Code(s): 01551503 (4) Lumbar facet arthropathy Current Visit: Yes Status: Acute Code(s): M47.816 - SPONDYLOSIS W/O MYELOPATHY OR RADICULOPATHY, LUMBAR REGION SNOMED Code(s): 558112713 (5) Lumbar stenosis Current Visit: Yes Status: Acute Code(s): M48.061 - SPINAL STENOSIS, LUMBAR REGION WITHOUT NEUROGENIC DAKOTAH SNOMED Code(s): 08402563 (6) Foot drop, right foot Current Visit: Yes Status: Acute Code(s): M21.371 - FOOT DROP, RIGHT FOOT SNOMED Code(s): 2469195 (7) Weakness of right lower extremity Current Visit: Yes Status: Acute Code(s): R29.898 - OTH SYMPTOMS AND SIGNS INVOLVING THE MUSCULOSKELETAL SYSTEM SNOMED Code(s): 832280377 (8) Diabetes mellitus Current Visit: Yes Status: Acute Code(s): E11.9 - TYPE 2 DIABETES MELLITUS WITHOUT COMPLICATIONS SNOMED Code(s): 76630194 (9) Hypertension Current Visit: Yes Status: Acute Code(s): I10 - ESSENTIAL (PRIMARY) HYPERTENSION SNOMED Code(s): 38393856 (10) Urinary retention Current Visit: Yes Status: Acute Code(s): R33.9 - RETENTION OF URINE, UNSPECIFIED SNOMED Code(s): 532747752 (11) Current use of systems manager anticoagulation Current Visit: Yes Status: Acute Code(s): Z79.01 - NURSING HOME (CURRENT) USE OF ANTICOAGULANTS SNOMED Code(s): 293541584 (12) Chest wall pain Current Visit: Yes Status: Acute Code(s): R07.89 - OTHER CHEST PAIN SNOMED Code(s): 391342342 (13) Status post total hip replacement, right Current Visit: No Status: Acute Priority: Medium Code(s): Z96.641 - PRESENCE OF RIGHT ARTIFICIAL HIP JOINT SNOMED Code(s): 711407093497 Plan: Plan: 1. Patient was experiencing acute on chronic low back pain yesterday following a right direct anterior total hip arthroplasty performed on 10/06/2021. Patient states this morning his acute low back pain has resolved in his low back pain has returned to his baseline. He is known have significant degenerative changes at his lumbosacral spine with multilevel degenerative disc disease, facet arthrosis, and lumbar stenosis. He has previously undergone surgical intervention performed twice at his lumbar spine with his last surgery approximately 20 years ago. Following his last surgery he has had chronic foot drop with his right lower extremity. He has weakness with dorsiflexion and extensor hallucis longus. He has been utilizing an AFO brace to aid in ambulation. We discussed he should continue to use his brace and ambulation. He also uses an LSO brace for comfort support of his lumbar spine as needed. Currently, he feels his low back pain is adequately controlled and he does not need further treatment or evaluation during his admission to the hospital. We did discuss we plan to have him follow-up in outpatient setting for further evaluation and treatment as needed. Patient may follow-up with Nate Daniel PA-C or Dr. Devin Ordaz at [facility] in 4 weeks following discharge. From an orthopedic spine standpoint, patient is clear for discharge. 2. He will currently plan to continue with further treatment and evaluation by multiple medical providers for his other medical diagnoses during his admission. Currently, the patient is planning to be discharged to a rehabilitation facility once cleared by multiple other medical providers and approved by his insurance. Time with Patient: Greater than 30 (Including obtaining history, physical examination, reviewing of imaging, and dictation.)
[2021-10-10] MEDS: DOXYCYCLINE 100 MG CAP PO SCH (09:25)
[2021-10-10 11:45] LABS: Glucose,Whole Blood 112 mg/dL (70-110)
--- NOTE | 2021-10-10 12:57 | P.PN ---
Subjective Progress Note Date: 10/10/21 This patient is a 81- year old male who is status-post right direct anterior total hip arthroplasty on 10/06/[address] Callahan. Patient was discharged home yesterday. Patient began experiencing chest pain and increased low back pain this morning. He also complains of urinary retention. Therefore, patient's called EMS and the patient was transported to [facility] emergency department. Patient was admitted under the care of Dr. Callahan with consults placed to internal medicine and urology. Patient is examined bedside in the emergency department this afternoon with Dr. Callahan. He states he is having minimal right hip pain. He has no complaints in regards to his right hip. Vital signs stable. 10/10/21: Patient is examined bedside this morning. He states his back pain and abdominal pain has improved significantly overnight. He has no significant hip pain at this time. No new complaints this morning. Objective - Vital Signs Vital signs: Vital Signs Temp 97.8 F 10/10/21 07:29 Pulse 66 10/10/21 07:29 Resp 16 10/10/21 08:00 BP 150/71 10/10/21 07:29 Pulse Ox 96 10/10/21 07:29 FiO2 Intake & Output 10/09/21 10/10/21 10/10/21 18:59 06:59 18:59 Intake Total 118 Output Total 1000 1500 Balance 118 -1000 -1500 Weight 97.522 kg Intake: Oral 118 Output: Urine 1000 1500 Other: Voiding Method Urinal # Voids 2 - Exam on examination, patient is sitting up in bed in no apparent distress. He is alert and oriented 3. On inspection of his right hip, there is a Prevena wound VAC in place that has good seal. There is mild swelling of the thigh, the thigh soft and compressible. Motor and sensory function is intact of the right lower extremity, patient does have a chronic foot drop. Femoral nerve function intact. Right lower extremities warm and well perfused with brisk capillary refill distally. Calf is nontender. - Labs CBC & Chem 7: 10/09/21 12:41 10/09/21 12:41 Labs: Abnormal Lab Results - Last 24 Hours (Table) 10/09/21 10/09/21 10/09/21 Range/Units 12:41 12:41 12:41 RBC 3.80 L (4.30-5.90) m/uL Hgb 12.5 L (13.0-17.5) gm/dL Hct 36.3 L (39.0-53.0) % Lymphocytes # 0.5 L (1.0-4.8) k/uL Sodium 132 L (137-145) mmol/L Creatinine 0.55 L (0.66-1.25) mg/dL Glucose 170 H (74-99) mg/dL POC Glucose (mg/dL) (70-110) mg/dL Calcium 8.0 L (8.4-10.2) mg/dL Total Bilirubin 1.5 H (0.2-1.3) mg/dL AST 74 H (17-59) U/L Total Protein 6.0 L (6.3-8.2) g/dL Albumin 3.2 L (3.5-5.0) g/dL Urine Ketones 1+ H (Negative) Urine Blood Moderate H (Negative) Urine RBC 8 H (0-5) /hpf Urine Mucus Occasional H (None) /hpf 10/09/21 10/09/21 10/10/21 Range/Units 17:54 20:23 07:20 RBC (4.30-5.90) m/uL Hgb (13.0-17.5) gm/dL Hct (39.0-53.0) % Lymphocytes # (1.0-4.8) k/uL Sodium (137-145) mmol/L Creatinine (0.66-1.25) mg/dL Glucose (74-99) mg/dL POC Glucose (mg/dL) 160 H 192 H 127 H (70-110) mg/dL Calcium (8.4-10.2) mg/dL Total Bilirubin (0.2-1.3) mg/dL AST (17-59) U/L Total Protein (6.3-8.2) g/dL Albumin (3.5-5.0) g/dL Urine Ketones (Negative) Urine Blood (Negative) Urine RBC (0-5) /hpf Urine Mucus (None) /hpf 10/10/21 Range/Units 11:43 RBC (4.30-5.90) m/uL Hgb (13.0-17.5) gm/dL Hct (39.0-53.0) % Lymphocytes # (1.0-4.8) k/uL Sodium (137-145) mmol/L Creatinine (0.66-1.25) mg/dL Glucose (74-99) mg/dL POC Glucose (mg/dL) 112 H (70-110) mg/dL Calcium (8.4-10.2) mg/dL Total Bilirubin (0.2-1.3) mg/dL AST (17-59) U/L Total Protein (6.3-8.2) g/dL Albumin (3.5-5.0) g/dL Urine Ketones (Negative) Urine Blood (Negative) Urine RBC (0-5) /hpf Urine Mucus (None) /hpf Assessment and Plan Assessment: Status-post right direct anterior total hip arthroplasty on 10/06/21. Re-admission for evaluation of urinary retention, low back pain and rehab placement Chronic right foot drop Plan: - Patient may weight bear as tolerated on right lower extremity with a walker. - Pain management as needed. - Eliquis has been resumed for DVT prophylaxis. - Prevena wound vac placed over right hip incision. Leave wound vac in place for one week. - Internal medicine, urology consulted for medical management. Dr. Ordaz consulted for low back pain, which has improved since admission. - Anticipate discharge to rehab when cleared medically and auth obtained.
[2021-10-10 14:18] VITALS: BP 148/73; PULSE 89; RESP 18; TEMP 98.5
[2021-10-10 14:40] VITALS: BMI 30.8
[2021-10-10 16:53] LABS: Glucose,Whole Blood 138 mg/dL (70-110)
[2021-10-10] MEDS ORDERED: METOPROLOL SUCCINATE (ER) 25 MG TAB.ER.24H PO SCH (17:00)
[2021-10-10] MEDS ORDERED: ESCITALOPRAM 10 MG TAB PO SCH (17:00)
--- NOTE | 2021-10-10 17:23 | P.CONS ---
History of Present Illness - Reason for Consult Consult date: 10/10/21 Medical management diabetes mellitus, hypertension Requesting physician: Leonides Callahan - Chief Complaint Urinary retention, rib cage pain, back pain - History of Present Illness This is a 81-year-old gentleman with diabetes mellitus, hypertension, DVT, multiple back surgeries, recent right total hip replacement on 10/06/2021, former nicotine dependence, alcohol abuse. 3 months ago-attends AA and multiple other medical issues admitted with increased lower back pain and rib cage pain wrapping around bilaterally accompanied by diaphoresis, shortness of breath. De nies nausea vomiting. Denies abdominal pain. KUB reported overall nonobstructive bowel gas pattern. Complains of urinary retention and urology consult in place. UA reporting moderate blood, 1+ ketones Vague Historian. This morning, pain controlled, consuming 75% of breakfast with no nausea vomit ing or diarrhea. Blood sugars controlled. Afebrile, normal WBC. T bili 1.5, AST 74, albumin 3.2.VSS, maintaining O2 sats in the 90s on room air. Denies chest pain, palpitations or shortness of breath. Review of Systems Patient is a vague historian. ROS Statement: Those systems with pertinent positive or pertinent negative responses have been documented in the HPI. ROS Other: All systems not noted in ROS Statement are negative. Past Medical History Past Medical History: Diabetes Mellitus, Hypertension Additional Past Medical History / Comment(s): DVT 2017, right sided abd. pain History of Any Multi-Drug Resistant Organisms: None Reported Past Surgical History: Back Surgery, Joint Replacement, Orthopedic Surgery Additional Past Surgical History / Comment(s): back surg. x 2, left hip replaced, ruptured achilles tendon repair, right total hip replacement 10/06/2021 Past Anesthesia/Blood Transfusion Reactions: No Reported Reaction Past Psychological History: No Psychological Hx Reported Smoking Status: Former smoker Past Alcohol Use History: None Reported Past Drug Use History: None Reported - Past Family History Mother Family Medical History: No Reported History Additional Family Medical History / Comment(s): Heart issues Father Family Medical History: No Reported History Additional Family Medical History / Comment(s): Father was healthy Medications and Allergies Home Medications Medication Instructions Recorded Confirmed Type lisinopriL [Zestril] 2.5 mg PO DAILY 10/29/17 10/09/21 History metFORMIN HCL [Glucophage] 850 mg PO DAILY 10/29/17 10/09/21 History Cholecalciferol [Vitamin D3] 25 mcg PO DAILY 02/14/18 10/09/21 History Multivit-Min/FA/Lycopen/Lutein 1 tab PO DAILY 10/06/19 10/09/21 History [Centrum Silver Men Tablet] Escitalopram [Lexapro] 10 mg PO DAILY 10/20/19 10/09/21 History Apixaban [Eliquis] 5 mg PO BID 09/29/21 10/09/21 History Metoprolol Succinate [Toprol XL] 12.5 mg PO DAILY 09/29/21 10/09/21 History traMADol HCL 50 mg PO Q6HR PRN 09/29/21 10/09/21 History Diclofenac Sodium [Voltaren] 75 mg PO BID 30 Days #60 tab 10/06/21 10/09/21 Rx Docusate [Colace] 100 mg PO BID #60 capsule 10/06/21 10/09/21 Rx Doxycycline Monohydrate 100 mg PO BID 14 Days #28 cap 10/06/21 10/09/21 Rx Omeprazole 40 mg PO DAILY 30 Days #30 cap 10/06/21 10/09/21 Rx Atorvastatin Calcium [Lipitor] 80 mg PO DAILY 10/09/21 10/09/21 History HYDROcodone/APAP 7.5-325MG [[place] 1 - 2 tab PO Q6H PRN 10/09/21 10/09/21 History 7.5-325] HYDROcodone/APAP 5-325MG [[place] 1 tab PO Q6HR PRN 7 Days #30 tab 10/10/21 Rx 5-325] Tamsulosin [Flomax] 0.4 mg PO DAILY #30 cap 10/10/21 Rx Allergies Allergy/AdvReac Type Severity Reaction Status Date / Time No Known Allergies Allergy Verified 10/09/21 13:20 Physical Exam Vitals: Vital Signs Temp Pulse Resp BP Pulse Ox 10/10/21 14:17 98.5 F 89 18 148/73 95 10/10/21 08:00 16 10/10/21 07:29 97.8 F 66 16 150/71 96 10/10/21 01:51 98.4 F 65 18 143/75 94 L 10/09/21 19:32 76 16 10/09/21 19:16 98.0 F 85 18 163/78 96 Intake and Output 10/10/21 10/10/21 10/10/21 06:59 14:59 22:59 Output Total 1000 1500 900 Balance -1000 -1500 -900 Output: Urine 1000 1500 900 Other: Voiding Method Urinal Indwelling Catheter Weight 97.522 kg PHYSICAL EXAM: VITAL SIGNS: [As above] GENERAL: Sitting up in bed, no acute distress HEENT: Conjunctivae normal. eyes normal. NECK: Supple, No JVD. No thyroid enlargement. No LNs CARDIOVASCULAR: S1, S2 regular.No murmur RESPIRATION: Breath sounds diminished in the bases. No rhonchi or crackles. No bronchial breathing. ABDOMEN: Soft, nontender . No guarding. no masses palpable. No ascites, No hepatosplenomegaly.Bowel sounds heard. EXTREMITIES: Right hip with wound VAC with no drainage, minimal edema, no calf pain, PSYCHIATRY: Alert and oriented X3, mood and affect normal. NERVOUS SYSTEM: Cranial N 2-12 grossly normal.No focal deficits. Strength and sensation grossly intact.. Skin: no lesions, no rash Results CBC & Chem 7: 10/09/21 12:41 10/09/21 12:41 Labs: Abnormal Lab Results - Last 24 Hours (Table) 10/09/21 10/09/21 10/10/21 Range/Units 17:54 20:23 07:20 POC Glucose (mg/dL) 160 H 192 H 127 H (70-110) mg/dL 10/10/21 Range/Units 11:43 POC Glucose (mg/dL) 112 H (70-110) mg/dL Assessment and Plan Assessment: Urinary retention Acute on Chronic Back pain, in a patient with history of multiple lumbar surgeries Recent right total hip replacement on 10/06/2021, anterior approach Chronic right foot drop Diabetes mellitus Hypertension Former nicotine dependence Former alcohol abuse, quit 3 months ago,goes to AA Plan: Continue on current medication regime ,monitoring and symptomatic treatm ent. Pain management, DVT prophylaxis as per orthopedic/primary. Orthopedic spine, Dr. Ordaz consult in place regarding worsening back pain. Urology following regarding urinary retention. Home meds have been reviewed and resumed. Potential subacute rehab at discharge. Thank you for the consult. The impression and plan of care has been dictated as directed. : I performed a history and examination of this patient, discussed the same with the dictator. I agree with the dictator's note ,documented as a scribe. Any additional findings or plans will be noted.
[2021-10-10] MEDS ORDERED: PANTOPRAZOLE 40 MG TABLET PO SCH (17:30)
[2021-10-10] MEDS ORDERED: INSULIN ASPART (NovoLOG) 100 UNIT/ML VIAL SQ SCH (17:30)
--- NOTE | 2021-10-10 17:49 | P.DS ---
Providers Date of admission: 10/09/21 14:35 Attending physician: Leonides Callahan Consults: 10/09/21 14:35 Consult Physician Urgent Consulting Provider: Kristian Galindo Consult Reason/Comments: Urinary urgency Do you want consulting provider notified?: Yes Consult Physician Urgent Consulting Provider: Robert Montes Consult Reason/Comments: Medical management Do you want consulting provider notified?: Yes 10/10/21 10:10 Consult Physician Routine Consulting Provider: Keven Ordaz Consult Reason/Comments: back pain Do you want consulting provider notified?: Already Contacted Primary care physician: Robert Montes [facility] Course: This is a 81-year-old male who underwent a right total hip arthroplasty on 10/06/[address] Callahan. Patient did well in the immediate post-operative period and was discharged home on 10/08/21. Patient presented to [facility] emergency department on Saturday10/09/21 with complaints of increasing low back pain, abdominal pain, urinary retention. Patient was admitted under the care of Dr. Callahan with consults placed to orthopedic spine surgery, internal medicine, and urology. Patient has been evaluated by all services and cleared for discharge home this afternoon. Patient was evaluated by physical therapy and it is recommended he discharge home with home health care. Patient was examined bedside this morning. Patient states she is overall doing very well and the pain in his right hip is well-controlled. Patient states his back pain and abdominal pain have completely resolved this morning. Patient was evaluated with Dr. Galindo this morning and holland has been placed with follow-up planned in his office later this week. Patient is comfortable discharging home with home health care today. There are no new complaints today. Vital signs sta ble. On examination, the patient is sitting up in bed in no apparent distress. He is alert and orientated 3. On inspection of the right hipl there is a Prevena wound vac in place that has a good seal. Motor and sensory function is intact of the right lower extremity, patient does have a chronic right foot drop. The right lower extremity is warm and well perfused with brisk capillary refill. Calf is soft and non-tender to palpation. Patient is discharged home with home health care today in good condition.. Patient will follow-up with Dr. Callahan in the office on Saturday10/16/21 for wound vac removal. Please see med rec for accurate list of discharge medication. Plan - Discharge Summary Discharge Rx Participant: No New Discharge Prescriptions: New Tamsulosin [Flomax] 0.4 mg PO DAILY #30 cap HYDROcodone/APAP 5-325MG [[place] 5-325] 1 tab PO Q6HR PRN 7 Days #30 tab PRN Reason: Pain No Action metFORMIN HCL [Glucophage] 850 mg PO DAILY lisinopriL [Zestril] 2.5 mg PO DAILY Cholecalciferol [Vitamin D3] 25 mcg PO DAILY Multivit-Min/FA/Lycopen/Lutein [Centrum Silver Men Tablet] 1 tab PO DAILY Escitalopram [Lexapro] 10 mg PO DAILY Metoprolol Succinate [Toprol XL] 12.5 mg PO DAILY Apixaban [Eliquis] 5 mg PO BID traMADol HCL 50 mg PO Q6HR PRN PRN Reason: Pain Docusate [Colace] 100 mg PO BID #60 capsule Doxycycline Monohydrate 100 mg PO BID 14 Days #28 cap Omeprazole 40 mg PO DAILY 30 Days #30 cap Diclofenac Sodium [Voltaren] 75 mg PO BID 30 Days #60 tab Atorvastatin Calcium [Lipitor] 80 mg PO DAILY HYDROcodone/APAP 7.5-325MG [[place] 7.5-325] 1 - 2 tab PO Q6H PRN PRN Reason: Pain Discharge Medication List lisinopriL [Zestril] 2.5 mg PO DAILY 10/29/17 [History] metFORMIN HCL [Glucophage] 850 mg PO DAILY 10/29/17 [History] Cholecalciferol [Vitamin D3] 25 mcg PO DAILY 02/14/18 [History] Multivit-Min/FA/Lycopen/Lutein [Centrum Silver Men Tablet] 1 tab PO DAILY 10/06/19 [History] Escitalopram [Lexapro] 10 mg PO DAILY 10/20/19 [History] Apixaban [Eliquis] 5 mg PO BID 09/29/21 [History] Metoprolol Succinate [Toprol XL] 12.5 mg PO DAILY 09/29/21 [History] traMADol HCL 50 mg PO Q6HR PRN 09/29/21 [History] Diclofenac Sodium [Voltaren] 75 mg PO BID 30 Days #60 tab 10/06/21 [Rx] Docusate [Colace] 100 mg PO BID #60 capsule 10/06/21 [Rx] Doxycycline Monohydrate 100 mg PO BID 14 Days #28 cap 10/06/21 [Rx] Omeprazole 40 mg PO DAILY 30 Days #30 cap 10/06/21 [Rx] Atorvastatin Calcium [Lipitor] 80 mg PO DAILY 10/09/21 [History] HYDROcodone/APAP 7.5-325MG [[place] 7.5-325] 1 - 2 tab PO Q6H PRN 10/09/21 [History] HYDROcodone/APAP 5-325MG [[place] 5-325] 1 tab PO Q6HR PRN 7 Days #30 tab 10/10/21 [Rx] Tamsulosin [Flomax] 0.4 mg PO DAILY #30 cap 10/10/21 [Rx] Follow up Appointment(s)/Referral(s): Kristian Galindo MD [STAFF PHYSICIAN] - 10/16/21 Robert Montes DO [Primary Care Provider] - 1 Week Nate Daniel PAC [PHYSICIAN MOBILE UI DEVELOPER] - 4 Weeks (Patient may follow-up with Nate Daniel PA-C or Dr. Devin Ordaz at [facility] in 4 weeks following discharge. ) [facility], [NON-STAFF] - 1-2 Days Leonides Callahan MD [Medical Doctor] - 10/16/21 Activity/Diet/Wound Care/Special Instructions: Discharge home with Holland catheter. Instruct patient to remove catheter early in the morning on 10/16/2021. Dr. Galindo' office will contact patient to schedule follow-up appointment late that afternoon. Weight bear as tolerated on operative extremity with a walker. Keep Prevena wound vac in place until follow-up appointment in the office. Take pain medications as prescribed. Resume Eliquis for DVT prophylaxis. Follow-up at [facility] on Saturday10/16/21 for wound vac removal. Call the office with any questions or concerns, Discharge Disposition: HOME WITH HOME HEALTH SERVICES
[2021-10-10] MEDS ORDERED: APIXABAN 5 MG TAB PO SCH (21:00)
[2021-10-10] MEDS ORDERED: DOCUSATE 100 MG CAP PO SCH (21:00)
--- NOTE | 2021-10-16 16:01 | P.GSCN ---
History of Present Illness Consult date: 10/10/21 Reason for Consult: Urinary retention Requesting physician: Leonides Callahan History of present illness: The patient is a 81-year-old white male who underwent a right direct anterior total hip arthroplasty on 10/06/2021. He presented to the ER yesterday with chest and abdominal pain, any also reported some dysuria. Reportedly, bladder scan showed adequate bladder emptying. Mr. Hylton is known to me. He was previously evaluated after being treated for a Klebsiella UTI. He has a known 11 cm left renal cyst which has been stable since 1999. In September 2019 he underwent cystoscopy with cystolithotripsy. 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 A right posterior bladder wall diverticulum contained multiple bladder calculi measuring up to 1.5 cm in size. He was previously treated with tamsulosin but is no longer taking it. Review of Systems - Constitutional Denies chills, Denies fever - Genitourinary Reports as per HPI Past Medical History Past Medical History: Diabetes Mellitus, Hypertension Additional Past Medical History / Comment(s): DVT 2017, right sided abd. pain History of Any Multi-Drug Resistant Organisms: None Reported Past Surgical History: Back Surgery, Joint Replacement, Orthopedic Surgery Additional Past Surgical History / Comment(s): back surg. x 2, left hip replaced, ruptured achilles tendon repair, right total hip replacement 10/06/2021 Past Anesthesia/Blood Transfusion Reactions: No Reported Reaction Past Psychological History: No Psychological Hx Reported Smoking Status: Former smoker Past Alcohol Use History: None Reported Past Drug Use History: None Reported - Past Family History Mother Family Medical History: No Reported History Additional Family Medical History / Comment(s): Heart issues Father Family Medical History: No Reported History Additional Family Medical History / Comment(s): Father was healthy Medications and Allergies Home Medications Medication Instructions Recorded Confirmed Type lisinopriL [Zestril] 2.5 mg PO DAILY 10/29/17 10/09/21 History metFORMIN HCL [Glucophage] 850 mg PO DAILY 10/29/17 10/09/21 History Cholecalciferol [Vitamin D3] 25 mcg PO DAILY 02/14/18 10/09/21 History Multivit-Min/FA/Lycopen/Lutein 1 tab PO DAILY 10/06/19 10/09/21 History [Centrum Silver Men Tablet] Escitalopram [Lexapro] 10 mg PO DAILY 10/20/19 10/09/21 History Apixaban [Eliquis] 5 mg PO BID 09/29/21 10/09/21 History Metoprolol Succinate [Toprol XL] 12.5 mg PO DAILY 09/29/21 10/09/21 History traMADol HCL 50 mg PO Q6HR PRN 09/29/21 10/09/21 History Diclofenac Sodium [Voltaren] 75 mg PO BID 30 Days #60 tab 10/06/21 10/09/21 Rx Docusate [Colace] 100 mg PO BID #60 capsule 10/06/21 10/09/21 Rx Doxycycline Monohydrate 100 mg PO BID 14 Days #28 cap 10/06/21 10/09/21 Rx Omeprazole 40 mg PO DAILY 30 Days #30 cap 10/06/21 10/09/21 Rx Atorvastatin Calcium [Lipitor] 80 mg PO DAILY 10/09/21 10/09/21 History HYDROcodone/APAP 7.5-325MG [[place] 1 - 2 tab PO Q6H PRN 10/09/21 10/09/21 History 7.5-325] HYDROcodone/APAP 5-325MG [[place] 1 tab PO Q6HR PRN 7 Days #30 tab 10/10/21 Rx 5-325] Allergies Allergy/AdvReac Type Severity Reaction Status Date / Time No Known Allergies Allergy Verified 10/09/21 13:20 Surgical - Exam Vital Signs Temp Pulse Resp BP Pulse Ox 98.4 F 83 16 157/80 96 10/09/21 11:36 10/09/21 11:36 10/09/21 11:36 10/09/21 11:36 10/09/21 11:36 - General well developed, well nourished, no distress - Respiratory normal respiratory effort - Abdomen Abdomen: soft, non tender, no guarding, no rigid, no rebound - Genitourinary normal penis with no external lesions, testicles non-tender left: scrotal mass/hydrocele (Small left hydrocele) - Psychiatric oriented to time, oriented to person, oriented to place, speech is normal, memory intact Results - Labs 10/09/21 12:41 10/09/21 12:41 Abnormal Lab Results - Last 24 Hours (Table) 10/09/21 10/09/21 10/09/21 Range/Units 12:41 12:41 12:41 RBC 3.80 L (4.30-5.90) m/uL Hgb 12.5 L (13.0-17.5) gm/dL Hct 36.3 L (39.0-53.0) % Lymphocytes # 0.5 L (1.0-4.8) k/uL Sodium 132 L (137-145) mmol/L Creatinine 0.55 L (0.66-1.25) mg/dL Glucose 170 H (74-99) mg/dL POC Glucose (mg/dL) (70-110) mg/dL Calcium 8.0 L (8.4-10.2) mg/dL Total Bilirubin 1.5 H (0.2-1.3) mg/dL AST 74 H (17-59) U/L Total Protein 6.0 L (6.3-8.2) g/dL Albumin 3.2 L (3.5-5.0) g/dL Urine Ketones 1+ H (Negative) Urine Blood Moderate H (Negative) Urine RBC 8 H (0-5) /hpf Urine Mucus Occasional H (None) /hpf 10/09/21 10/09/21 Range/Units 17:54 20:23 RBC (4.30-5.90) m/uL Hgb (13.0-17.5) gm/dL Hct (39.0-53.0) % Lymphocytes # (1.0-4.8) k/uL Sodium (137-145) mmol/L Creatinine (0.66-1.25) mg/dL Glucose (74-99) mg/dL POC Glucose (mg/dL) 160 H 192 H (70-110) mg/dL Calcium (8.4-10.2) mg/dL Total Bilirubin (0.2-1.3) mg/dL AST (17-59) U/L Total Protein (6.3-8.2) g/dL Albumin (3.5-5.0) g/dL Urine Ketones (Negative) Urine Blood (Negative) Urine RBC (0-5) /hpf Urine Mucus (None) /hpf Diabetes panel 10/09/21 Range/Units 12:41 Sodium 132 L (137-145) mmol/L Potassium 3.8 (3.5-5.1) mmol/L Chloride 101 (98-107) mmol/L Carbon Dioxide 26 (22-30) mmol/L BUN 15 (9-20) mg/dL Creatinine 0.55 L (0.66-1.25) mg/dL Glucose 170 H (74-99) mg/dL Calcium 8.0 L (8.4-10.2) mg/dL AST 74 H (17-59) U/L ALT 24 (4-49) U/L Alkaline Phosphatase 57 (38-126) U/L Total Protein 6.0 L (6.3-8.2) g/dL Albumin 3.2 L (3.5-5.0) g/dL Calcium panel 10/09/21 Range/Units 12:41 Calcium 8.0 L (8.4-10.2) mg/dL Albumin 3.2 L (3.5-5.0) g/dL Pituitary panel 10/09/21 Range/Units 12:41 Sodium 132 L (137-145) mmol/L Potassium 3.8 (3.5-5.1) mmol/L Chloride 101 (98-107) mmol/L Carbon Dioxide 26 (22-30) mmol/L BUN 15 (9-20) mg/dL Creatinine 0.55 L (0.66-1.25) mg/dL Glucose 170 H (74-99) mg/dL Calcium 8.0 L (8.4-10.2) mg/dL Adrenal panel 10/09/21 Range/Units 12:41 Sodium 132 L (137-145) mmol/L Potassium 3.8 (3.5-5.1) mmol/L Chloride 101 (98-107) mmol/L Carbon Dioxide 26 (22-30) mmol/L BUN 15 (9-20) mg/dL Creatinine 0.55 L (0.66-1.25) mg/dL Glucose 170 H (74-99) mg/dL Calcium 8.0 L (8.4-10.2) mg/dL Total Bilirubin 1.5 H (0.2-1.3) mg/dL AST 74 H (17-59) U/L ALT 24 (4-49) U/L Alkaline Phosphatase 57 (38-126) U/L Total Protein 6.0 L (6.3-8.2) g/dL Albumin 3.2 L (3.5-5.0) g/dL Assessment and Plan (1) Urinary retention Current Visit: Yes Status: Acute Code(s): R33.9 - RETENTION OF URINE, UNSPECIFIED SNOMED Code(s): 518286042 Plan: Bladder Scan performed this morning showed a postvoid residual of 1019 mL. In view of this, a Linder catheter will be placed and he should be discharged home with the catheter. Tamsulosin will be prescribed. He will be instructed to remove his catheter early in the morning on October 16 and follow-up in the office later that day to assess bladder emptying. Please notify me if I can be of any further assistance. Time with Patient: Greater than 30
== END 2021-10-10 18:08 | disposition home health service (06) ==
LOC: EC 11:34 → 6NMEDSUR 14:35
PROVIDERS: ADMIT Orthopaedic Surgery; ATTEND Orthopaedic Surgery
DX: N99.89 Other postprocedural complications and disorders of genitourinary system (principal); R33.8 Other retention of urine; M51.37 Other intervertebral disc degeneration, lumbosacral region; M47.817 Spondylosis without myelopathy or radiculopathy, lumbosacral region; M48.061 Spinal stenosis, lumbar region without neurogenic claudication; G89.29 Other chronic pain; N40.1 Benign prostatic hyperplasia with lower urinary tract symptoms; E11.9 Type 2 diabetes mellitus without complications; I10 Essential (primary) hypertension; I48.91 Unspecified atrial fibrillation; M21.371 Foot drop, right foot; N28.1 Cyst of kidney, acquired; N32.3 Diverticulum of bladder; R26.81 Unsteadiness on feet; Z79.84 Long term (current) use of oral hypoglycemic drugs; Z79.01 Long term (current) use of anticoagulants; Z79.899 Other long term (current) drug therapy; Z86.718 Personal history of other venous thrombosis and embolism; Z96.643 Presence of artificial hip joint, bilateral; Z87.891 Personal history of nicotine dependence; Z87.440 Personal history of urinary (tract) infections; Z87.442 Personal history of urinary calculi; Z98.890 Other specified postprocedural states; Z87.898 Personal history of other specified conditions; Z82.49 Family history of ischemic heart disease and other diseases of the circulatory system
CPT/HCPCS: 96376 ×3; 96361 ×3; 96374; 96375; 99285; 36415; 93005; 97162; 97166; 80053; 85025; 81001; 74018; G0378 ×2; J1885 ×2; J1170

== ENCOUNTER → 2022-02-20 | Outpatient (CLI) | payer MEDICARE ==
[2022-02-20 10:38] LABS: African American GFR (CKD) >90 (>60 ml/min/1.73 sqM); Blood Urea Nitrogen 13 mg/dL (9-20); Non-African American GFR(CKD) >90 (>60 ml/min/1.73 sqM)
--- NOTE | 2022-02-20 12:37 | CT ---
EXAMINATION TYPE: CT urogram wo/w con CT DLP: 1044 mGycm, Automated exposure control for dose reduction was used. DATE OF EXAM: 02/20/2022 12:07 PM COMPARISON: CT abdomen pelvis most recent from 02/08/2021. CLINICAL INDICATION:Male, 81 years old with history of R31.0 gross hematuria; PHH, Hematuria TECHNIQUE: Urogram of the abdomen and pelvis before and after the uneventful administration of 100 cc of Isovue- 300 intravenously. Delayed imaging was performed. Coronal and sagittal reformats were performed. One or more CT dose reduction strategies were utilized during this examination. 2D and 3D reconstructions are performed to assist visualization of the urinary tract on a separate workstation. FINDINGS: GENITOURINARY: RIGHT KIDNEY AND URETER: No calculi. No hydronephrosis or hydroureter. No renal mass or other lesions . The distal ureters are poorly visualized due to streak artifact from the hip prosthesis. No gross e vidence of urothelial lesions: no filling defect, dilation, stricture or wall thickening. LEFT KIDNEY AND URETER: No calculi. No hydronephrosis or hydroureter. Exophytic cystic 10.7 cm lesion with minimal peripheral curvilinear calcification. No enhancing soft tissue component identified. Th is is consistent with a Bosniak 2 cyst. Additional subcentimeter nonenhancing lesion within superior pole of left kidney is favored to represent a cyst. The distal ureters are poorly visualized due to s treak artifact from the hip prosthesis. No gross evidence of urothelial lesions: no filling defect, d ilation, stricture or wall thickening. URINARY BLADDER: There is a cystic appearing lesion with trace layering hyperdensity along the flat hammerer ior lateral aspect of the urinary bladder within the pelvis measuring up to 7.9 cm. This is poorly ev aluated due to streak artifact from hip prosthesis. Ureter bladder is poorly evaluated due to lack of distention and streak artifact from hip prosthesis. REPRODUCTIVE: Prostate gland appears to be enlarged measuring 6.2 cm however evaluation is limited du e to streak artifact from hip prosthesis.. ABDOMEN LIVER: Unremarkable. GALLBLADDER AND BILE DUCTS: Unremarkable PANCREAS: Unremarkable. SPLEEN: Unremarkable. ADRENAL GLANDS: Unremarkable. STOMACH AND BOWEL: Unremarkable. No evidence of bowel obstruction. PERITONEUM: No evidence of pneumoperitoneum, free fluid, or adenopathy. VASCULATURE: Moderate atherosclerotic calcifications are present throughout the abdominal aorta and i ts branches. No abdominal aortic aneurysm. MUSCULOSKELETAL: No acute osseous abnormalities. Post surgical changes from bilateral total hip arthr oplasty. This creates streak artifact which limits evaluation. Postsurgical changes of the lumbar spi ne from laminectomies. 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 SOFT TISSUE/ABDOMINAL WALL: Small fat filled umbilical hernia. LOWER CHEST: Visualized lungs are clear. Coronary arterial calcifications. IMPRESSION: Limited examination due to streak artifact from the hip prosthesis. 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 Suspected right posterior urinary bladder diverticulum measuring up to 7.9 cm with a few laye ring calcifications. This can be further evaluated with pelvic ultrasound. No gross evidence of nephr olithiasis or suspicious renal/urothelial neoplasm.
== END | disposition home or self-care (01) ==
LOC: RADCTMAIN 09:33
PROVIDERS: ATTEND Urology
DX: N28.1 Cyst of kidney, acquired (principal); R31.0 Gross hematuria; Z96.649 Presence of unspecified artificial hip joint
CPT/HCPCS: 82565; 84520; 74178; 36415; 74400; Q9967